=== PATIENT | female | born 1965 | race Caucasian/White ===

== ENCOUNTER → 2020-06-10 18:33 | Outpatient (ROUT) | payer BC, SELFPAY ==
[2020-06-10 19:00] LABS: Add Manual Diff / Slide Review NO; Basophils Absolute Auto 100 /uL (0-100); Basophils Percent Auto 0.7 % (0-2); Eosinophils Absolute Auto 300 /uL (0-450); Eosinophils Percent Auto 3.6 % (2-4); Hemoglobin 12.7 g/dL (12.0-16.0); Lymphocytes Absolute Auto 1500 /uL (1100-4500); Lymphocytes Percent Auto 18.1 % (25-40); Mean Corpuscular HGB Conc 33.4 % (30-36); Mean Corpuscular Hemoglobin 29.9 PG (26-34); Mean Corpuscular Volume 89.4 fL (80-100); Monocytes Absolute Auto 700 /uL (0-900); Monocytes Percent Auto 8.5 % (3-14); Neutrophils Absolute Auto 5600 /uL (1500-7000); Neutrophils Percent Auto 69.1 % (50-75); Platelet Count 207 X10^3/uL (150-400); Red Blood Cell Count 4.25 X10^6/uL (4.0-5.2); Red Cell Distribution Width 13.4 % (11.6-14.8); White Blood Cell Count 8.1 X10^3/uL (4.5-11.0)
[2020-06-10 19:36] LABS: Alanine Aminotransferase 81 IU/L (<35); Albumin 4.1 g/dL (3.5-5.0); Albumin Globulin Ratio 1.7 (1.0-2.8); Alkaline Phosphatase 126 U/L (38-126); Aspartate Aminotransferase 61 IU/L (14-36); BUN Creatinine Ratio 25.6 (6-22); Bilirubin Total 0.4 mg/dL (0.2-1.3); Blood Urea Nitrogen 20 mg/dL (7-17); Calcium 9.6 mg/dL (8.4-10.2); Carbon Dioxide 26 mmol/L (22-32); Chloride 104 mmol/L (98-107); Estimated Glomerular Filt Rate > 60.0 mL/min (>60); Globulin 2.4 g/dL (1.7-4.1); Glucose 81 mg/dL (70-100); HEMOLYSIS < 15 (0-50); Sodium 136 mmol/L (137-145); Total Protein 6.5 g/dL (6.3-8.2)
[2020-06-10 19:57] LABS: Thyroid Stimulating Hormone 1.13 uIU/mL (0.47-4.68)
== END ==
PROVIDERS: Visit Provider Internal Medicine
DX: F32.9 Major depressive disorder, single episode, unspecified (principal); R94.5 Abnormal results of liver function studies
CPT/HCPCS: 80053; 84443; 85025

== ENCOUNTER → 2020-07-21 07:00 | Outpatient (CLI) | payer BC, SELFPAY ==
[2020-07-21 08:46] LABS: HEMOLYSIS < 15 (0-50); Iron 60 ug/dL (37-170)
[2020-07-21 08:51] LABS: Alanine Aminotransferase 64 IU/L (<35); Albumin 4.2 g/dL (3.5-5.0); Albumin Globulin Ratio 1.6 (1.0-2.8); Alkaline Phosphatase 113 U/L (38-126); Aspartate Aminotransferase 46 IU/L (14-36); BUN Creatinine Ratio 24.7 (6-22); Bilirubin Total 0.3 mg/dL (0.2-1.3); Blood Urea Nitrogen 19 mg/dL (7-17); Calcium 9.6 mg/dL (8.4-10.2); Carbon Dioxide 29 mmol/L (22-32); Chloride 101 mmol/L (98-107); Cholesterol 207 mg/dL (140-199); Estimated Glomerular Filt Rate > 60.0 mL/min (>60); Gamma Glutamyl Transpeptidase 23 U/L (12-43); Globulin 2.7 g/dL (1.7-4.1); Glucose 95 mg/dL (70-100); HEMOLYSIS < 15 (0-50); Potassium 4.9 mmol/L (3.4-5.1); Sodium 137 mmol/L (137-145); Total Protein 6.9 g/dL (6.3-8.2); Triglycerides 38 mg/dL (35-150)
[2020-07-21 08:57] LABS: Percent Iron Saturation 18 % (15-50); Total Iron Binding Capacity 335 ug/dL (265-497); Transferrin 287 mg/dL (206-381)
[2020-07-21 09:10] LABS: HDL Cholesterol 138 mg/dL (40-60); LDL Cholesterol Calculated 61 mg/dL (<100)
[2020-07-21 09:21] LABS: Ferritin 27 ng/mL (11-264)
[2020-07-21 16:51] LABS: Hep C Virus Ab w/Reflex Quant NEGATIVE s/c (NEGATIVE); Hepatitis B Surface Antigen NEGATIVE s/c (NEGATIVE)
[2020-07-22 07:35] LABS: Hepatitis B Surf Ab Qualitativ Non Reactive (.)
[2020-07-22 16:31] LABS: SS A Ro Sjogrens Antibody < 0.2 AI (0.0-0.9); SS B La Sjogrens Antibody < 0.2 AI (0.0-0.9)
[2020-07-23 14:12] LABS: ANA Screen, IFA Negative (.)
== END ==
PROVIDERS: PCP Internal Medicine; Referring Provider Internal Medicine; Visit Provider Internal Medicine
DX: E78.5 Hyperlipidemia, unspecified (principal); R74.0 Nonspecific elevation of levels of transaminase and lactic acid dehydrogenase [LDH]; R21 Rash and other nonspecific skin eruption
CPT/HCPCS: 36415; 80053; 80061; 82728; 82977; 83540; 83550; 86038; 86235; 86706; 86803; 87340

== ENCOUNTER → 2020-07-24 08:41 | Outpatient (CLI) | payer BC, SELFPAY | PROVIDERS: Referring Provider Internal Medicine; Visit Provider Internal Medicine | DX: R20.2 Paresthesia of skin (principal) | CPT/HCPCS: 95886; 95911 ==

== ENCOUNTER → 2020-09-10 11:20 | Outpatient (CLI) | payer BC, SELFPAY ==
--- NOTE | 2020-09-10 | DI.MG.S_ITS ---
BILATERAL DIGITAL SCREENING MAMMOGRAM 3D/2D WITH CAD: 09/10/2020 CLINICAL: Routine screening. Comparison is made to exams dated: 06/19/2019 mammogram, 06/30/2018 mammogram, and 05/07/2016 mammogram - outside location. The tissue of both breasts is heterogeneously dense. This may lower the sensitivity of mammography. Current study was also evaluated with a Computer Aided Detection (CAD) system. No significant masses, calcifications, or other findings are seen in either breast. There has been no significant interval change. IMPRESSION: NEGATIVE There is no mammographic evidence of malignancy. A 1 year screening mammogram is recommended. This exam was interpreted at Station ID: [id number]. NOTE: For mammograms, a report in lay terms will be sent to the patient. Approximately 15% of breast malignancies will not be visualized mammographically. In the management of a palpable breast mass, a negative mammogram must not discourage biopsy of a clinically suspicious lesion. Electronically Signed By: Karen mosley/eugenio:09/10/2020 12:12:46 letter sent: Normal Exam ACR BI-RADS Category 1: Negative 3341F
== END ==
PROVIDERS: PCP Internal Medicine; Referring Provider Internal Medicine; Visit Provider Internal Medicine
DX: Z12.31 Encounter for screening mammogram for malignant neoplasm of breast (principal)
CPT/HCPCS: 77063; 77067

== ENCOUNTER → 2020-10-06 07:03 | Outpatient (CLI) | payer BC, SELFPAY ==
[2020-10-06 09:05] LABS: Alanine Aminotransferase 78 IU/L (<35); Aspartate Aminotransferase 63 IU/L (14-36); BUN Creatinine Ratio 33.3 (6-22); Blood Urea Nitrogen 25 mg/dL (7-17); Calcium 9.2 mg/dL (8.4-10.2); Carbon Dioxide 28 mmol/L (22-32); Chloride 102 mmol/L (98-107); Creatine Kinase 39 U/L (30-135); Estimated Glomerular Filt Rate > 60.0 mL/min (>60); Gamma Glutamyl Transpeptidase 23 U/L (12-43); Glucose 101 mg/dL (70-100); HEMOLYSIS < 15 (0-50); Potassium 4.6 mmol/L (3.4-5.1); Sodium 134 mmol/L (137-145)
[2020-10-08 18:41] LABS: Aldolase 5.4 U/L (3.3-10.3)
== END ==
PROVIDERS: PCP Internal Medicine; Referring Provider Internal Medicine; Visit Provider Internal Medicine
DX: R74.01 Elevation of levels of liver transaminase levels (principal)
CPT/HCPCS: 36415; 80048; 82085; 82550; 82977; 84450; 84460

== ENCOUNTER → 2021-01-08 09:49 | Outpatient (CLI) | payer BC, SELFPAY ==
--- NOTE | 2021-01-08 09:52 | DI.RAD.S_ITS ---
PROCEDURE: XR CHEST 2V INDICATIONS: COUGH TECHNIQUE: 2 views of the chest were acquired. COMPARISON: None. FINDINGS: Surgical changes and devices: None. Lungs and pleura: Lungs are clear. No pleural effusions or pneumothorax. Mediastinum: Mediastinal contours are normal. Heart size is normal. Bones and chest wall: No suspicious bony abnormalities. Soft tissues appear unremarkable. IMPRESSION: No acute cardiopulmonary abnormalities or focal airspace disease. Dictated by: Yovany Cohen M.D. on 01/08/2021 at 12:20 Approved by: Yovany Cohen M.D. on 01/08/2021 at 12:20
== END ==
PROVIDERS: PCP Internal Medicine; Referring Provider Internal Medicine; Visit Provider Internal Medicine
DX: R05 Cough (principal)
CPT/HCPCS: 71046

== ENCOUNTER → 2021-02-16 09:18 | Outpatient (CLI) | payer BC, SELFPAY ==
[2021-02-16 12:20] LABS: COVID19 -Nasal RAPID Negative (Negative)
== END ==
PROVIDERS: PCP Internal Medicine; Visit Provider Student in an Organized Health Care Education/Training Program
DX: Z20.822 Contact with and (suspected) exposure to COVID-19 (principal)
CPT/HCPCS: 87635

== ENCOUNTER 2021-02-18 08:19 | Day surgery (SDC) | payer BC, SELFPAY ==
[2021-02-18] VITALS (7 sets, daily range): BP systolic 103–136; BP diastolic 68–78; PULSE 62–76; RESP 12–17; TEMP 36.1–36.8; O2SAT 97–100; BMI 26.0
--- NOTE | 2021-02-18 | PATH_ITS ---
[facility] Accession Number: [id number] . 01 Material submitted: . colon - ASCENDING COLON POLYP . 02 Diagnosis: Ascending Colon, Polyp, Biopsy: Sessile serrated adenoma. MRV 02/24/2021 1149 Local . 02 Electronically signed: . Padmini Jacobs MD, Pathologist NPI- [id number] . 01 Gross description: . ASCENDING COLON POLYP: Received in formalin is 1 fragment(s) of slater, soft tissue measuring 0.8 x 0.3 x 0.3 cm submitted entirely in 1 cassette(s) /BRUCE 02/19/2021 1846 Local . 02 Pathologist provided ICD-10: D12.2 . 02 CPT . 732684 Performed at: [address] [facility] [address] [id number] MD Jesse De León MD Phone: [phone] Performed at: 02 [facility] [address] [place], [place] [id number] MD Padmini Jacobs MD Phone: [phone]
--- NOTE | 2021-02-18 08:06 | PM.HP.1 ---
History of Present Illness History of Present Illness Date Patient Seen: 02/18/21 Chief complaint: SDC Narrative: 56-year-old female with a history very of colon polyps and family history of colon cancer here for surveillance Patient History Family & Social History Tobacco & Substance use: Smoking Status Never smoker Meds Home Medications and Allergies Home Medications Medication Instructions Recorded Confirmed Type DHEA 5 mg PO DAILY 09/10/20 01/22/21 History biotin 10,000 mcg disintegrating 10,000 mcg PO DAILY 09/10/20 02/18/21 History tablet duloxetine 60 mg capsule,delayed 120 mg PO DAILY #180 cap 09/10/20 02/18/21 Rx release estradiol 1 mg-progesterone 100 mg 1 cap PO QPM 09/10/20 02/18/21 History capsule fluoxetine 40 mg capsule 160 mg PO DAILY #360 cap 09/10/20 02/18/21 Rx magnesium citrate 100 mg tablet 200 mg PO DAILY 09/10/20 02/18/21 History modafinil 200 mg tablet 400 mg PO DAILY #180 tab 09/10/20 02/18/21 Rx omega-3 fatty acids 1,000 mg 1,000 mg PO DAILY 09/10/20 02/18/21 History capsule pregnenolone [employer]ER 30mg PO DAILY 09/10/20 01/22/21 History rosuvastatin 10 mg tablet 10 mg PO DAILY 09/10/20 02/18/21 History spironolactone 25 mg tablet 50 mg PO DAILY tab 09/10/20 02/18/21 History bupropion HCl 75 mg tablet See Rx Instructions .ROUTE 01/22/21 02/18/21 Rx .COMPLEX #360 tab Allergies Allergy/AdvReac Type Severity Reaction Status Date / Time No Known Drug Allergies Allergy Verified 01/22/21 08:59 Exam Narrative Exam Narrative: General: Patient is well developed, not in apparent distress Cardiovascular: Regular rate and rhythm, no murmurs, rubs, or gallops; no evidence of edema; no palpable abdominal aortic aneurysm Gastrointestinal: Normoactive bowel sounds, soft, nontender, nondistended, no rebound tenderness, no hepatosplenomegaly, no evidence of hernia Assessment & Plan Assessment & Plan narrative: 56-year-old female with a history of colon polyps and family history of colon cancer here for surveillance Regarding the procedure(s), the risks and potential complications, benefits, and alternatives (including not doing the procedure) were discussed with the patient. The risks include but are not limited to bleeding, splenic injury, infection, perforation which may require surgical intervention, missed lesions, and adverse reactions to sedative medicines. After a question and answer period, the patient agreed to proceed with the procedure(s) and gives informed consent.
[2021-02-18] MEDS: SODIUM CHLORIDE 0.9% 1,000 ML 70 ML IV (08:47)
[2021-02-18] MEDS: fentaNYL 250 MCG/5 ML INJ IV (09:23)
--- NOTE | 2021-02-18 09:23 | P.OP.ENDO_ITS ---
Operative Date/Time/Diagnoses Date of procedure: 02/18/21 Procedure Notes Procedure in detail: Surgeon: Adán Noel MD Procedure: Colonoscopy with polypectomy Preoperative diagnosis: Colon polyp surveillance Postoperative diagnosis: Ascending colon polyp status post polypectomy, h ypertrophied anal papula Medications: Conscious sedation using 5 mg IV of Midazolam and 100 mcg IV of Fentanyl Preanesthesia Assessment An H and P was performed/updated and the Px?s ASA class is 2. The procedure was discussed in detail with the patient. The potential risks and complications including infection, bleeding, missed lesions, perforation, need for surgery in case of perforation, prolonged hospital stay, and were explained. A brief question and answer period was allotted and once all questions were answered, informed consent was obtained. The patient was brought back to the procedure room and placed on standard monitoring. The patient?s vital signs were monitored continuously throughout the entire procedure. Prior to starting, a timeout was performed to confirm the patient?s identity, allergies, medications, and procedure. Procedure in detail The patient was placed in left lateral decubitus position and once adequate sedation was obtained a PREET was performed. The digital rectal examination did not reveal any palpable lesions. The tip of the colonoscope was placed in the anal canal and advanced without difficulty all the way to the cecum which was identified by the appendiceal orifice and the ileocecal valve. Careful examination of all peralta of the colon was performed with irrigation of any residual stool. In the ascending colon, a 4 mm sessile polyp was removed by means of cold snare. Resection retrieval was complete The remainder of the colon showed no abnormalities Retroflexion was performed in the rectum which revealed hypertrophied anal pa pillae The patient tolerated the procedure well and will be brought back to the recovery area to be discharged once criteria are met. The prep was judged to be good and adequate to identify polyps less than 5 mm. The withdrawal time was 11 minutes. The total physician intraservice time was 20 minutes. Complications There were no complications and estimated blood loss was minimal. Recommendations: Resume previous diet Continue outPx medications Follow up pathology results Repeat colonoscopy in 5 or 7 or 10 years depending on pathology results An emergency contact number was given to the patient for any complications related to the procedure
[2021-02-18] MEDS: MIDAZOLAM 5 MG/5 ML VIAL IV (09:24)
--- NOTE | 2021-02-18 11:04 | SUR.PHASEII ---
1025-Pt up and ambulating gait steady, drinking po fluids without problems, denies pain or nausea. Pt getting dressed now without difficulty and at curbside. All dc instructions given and pt verbalizes understanding. iv dcd earlier and site clear.
== END 2021-02-18 10:30 | disposition home or self-care (01) ==
PROVIDERS: PCP Internal Medicine; Referring Provider Internal Medicine Gastroenterology; Visit Provider Internal Medicine Gastroenterology
PROC: 0DJD8ZZ Inspection of Lower Intestinal Tract, Via Natural or Artificial Opening Endoscopic (ICD-10-PCS; CPT 45378; 2021-02-18 09:30)
DX: Z12.11 Encounter for screening for malignant neoplasm of colon (principal); Z80.0 Family history of malignant neoplasm of digestive organs; Z86.010 Personal history of colon polyps; K64.4 Residual hemorrhoidal skin tags; D12.2 Benign neoplasm of ascending colon
CPT/HCPCS: 45385; J2250; J3010

== ENCOUNTER 2021-04-14 07:44 | Emergency (ER) | payer BC, SELFPAY ==
[2021-04-14] VITALS (7 sets, daily range): BP systolic 136–154; BP diastolic 72–87; PULSE 73–85; RESP 16–25; TEMP 36.8; O2SAT 97–100; BMI 25.2
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
[2021-04-14] MEDS: SODIUM CHLORIDE 0.9% 1,000 ML 1000 ML IV (08:02)
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
[2021-04-14 08:11] LABS: Add Manual Diff / Slide Review NO; Basophils Absolute Auto 100 /uL (0-100); Basophils Percent Auto 0.7 % (0-2); Eosinophils Absolute Auto 600 /uL (0-450); Hematocrit 39.2 % (36-46); Hemoglobin 12.6 g/dL (12.0-16.0); Lymphocytes Absolute Auto 2200 /uL (1100-4500); Lymphocytes Percent Auto 21.2 % (25-40); Mean Corpuscular HGB Conc 32.1 % (30-36); Mean Corpuscular Hemoglobin 29.4 PG (26-34); Mean Corpuscular Volume 91.5 fL (80-100); Monocytes Absolute Auto 1100 /uL (0-900); Monocytes Percent Auto 11.1 % (3-14); Neutrophils Absolute Auto 6200 /uL (1500-7000); Platelet Count 263 X10^3/uL (150-400); Red Blood Cell Count 4.28 X10^6/uL (4.0-5.2); Red Cell Distribution Width 13.8 % (11.6-14.8); White Blood Cell Count 10.2 X10^3/uL (4.5-11.0)
[2021-04-14 08:14] LABS: D Dimer < 200 ng/mL (<230)
[2021-04-14 08:15] LABS: Alanine Aminotransferase 121 IU/L (<35); Albumin 4.2 g/dL (3.5-5.0); Albumin Globulin Ratio 1.5 (1.0-2.8); Alkaline Phosphatase 102 U/L (38-126); Aspartate Aminotransferase 96 IU/L (14-36); BUN Creatinine Ratio 20.8 (6-22); Bilirubin Total 0.4 mg/dL (0.2-1.3); Blood Urea Nitrogen 16 mg/dL (7-17); Calcium 9.6 mg/dL (8.4-10.2); Carbon Dioxide 22 mmol/L (22-32); Chloride 103 mmol/L (98-107); Creatine Kinase 74 U/L (30-135); Estimated Glomerular Filt Rate > 60.0 mL/min (>60); Ethanol (ETOH) < 10 mg/dL; Globulin 2.8 g/dL (1.7-4.1); Glucose 110 mg/dL (70-100); HEMOLYSIS 26 (0-50); Potassium 4.3 mmol/L (3.4-5.1); Sodium 136 mmol/L (137-145)
[2021-04-14 08:26] LABS: Troponin I < 0.012 ng/mL (0.01-0.034)
[2021-04-14 08:31] LABS: Prolactin 70.9 ng/mL (3.0-18.6)
[2021-04-14 09:53] LABS: UR Morphine/Opiate cutoff 300 Negative (Negative); Ur Creatinine Normal (Normal); Ur Specific Gravity Normal (Normal); Urine Amphetamines Negative (Negative); Urine Cocaine Negative (Negative); Urine MDMA Negative (Negative); Urine Methamphetamines Negative (Negative); Urine Phencyclidine Negative (Negative); Urine Tetrahydrocannabinol Negative (Negative); Urine pH Normal (Normal)
[2021-04-14 09:54] LABS: Urine Barbiturates Negative (Negative); Urine Benzodiazepines Negative (Negative); Urine Methadone Negative (Negative); Urine Oxycodone Negative (Negative); Urine Tricyclic Antidepressant Negative (Negative)
== END 2021-04-14 10:34 | disposition home or self-care (01) ==
PROVIDERS: Emergency Provider Emergency Medicine; PCP Internal Medicine
DX: R56.9 Unspecified convulsions (principal)
CPT/HCPCS: 70450; 71045; 80053; 80305; 80320; 81003; 82550; 82962; 83735; 84146; 84484; 85025; 85379; 93005; 93010; 96360; 96361; 99285

== ENCOUNTER → 2021-10-06 09:58 | Outpatient (CLI) | payer BC, SELFPAY ==
--- NOTE | 2021-10-06 | DI.MG.S_ITS ---
BILATERAL DIGITAL SCREENING MAMMOGRAM 3D/2D WITH CAD: 10/06/2021 CLINICAL: Routine screening. Comparison is made to exams dated: 09/10/2020 mammogram - [facility], 06/19/2019 mammogram, and 06/30/2018 mammogram - outside location. The tissue of both breasts is heterogeneously dense. This may lower the sensitivity of mammography. Current study was also evaluated with a Computer Aided Detection (CAD) system. No significant masses, calcifications, or other findings are seen in either breast. There has been no significant interval change. IMPRESSION: NEGATIVE There is no mammographic evidence of malignancy. A 1 year screening mammogram is recommended. This exam was interpreted at Station ID: [id number]. NOTE: For mammograms, a report in lay terms will be sent to the patient. Approximately 15% of breast malignancies will not be visualized mammographically. In the management of a palpable breast mass, a negative mammogram must not discourage biopsy of a clinically suspicious lesion. Electronically Signed By: Yovany roach/eugenio:10/06/2021 13:04:36 letter sent: Normal Exam ACR BI-RADS Category 1: Negative [id number]
== END ==
PROVIDERS: PCP Internal Medicine; Referring Provider Internal Medicine; Visit Provider Internal Medicine
DX: Z12.31 Encounter for screening mammogram for malignant neoplasm of breast (principal)
CPT/HCPCS: 77063; 77067

== ENCOUNTER → 2021-11-24 10:56 | Outpatient (CLI) | payer BC, SELFPAY ==
[2021-11-24 12:58] LABS: Progesterone, Total 1.99 ng/mL
[2021-11-24 13:01] LABS: Testosterone 34.6 ng/dL (5.71-77.0)
[2021-11-27 21:22] LABS: Estrogen 274 pg/mL (.)
== END ==
PROVIDERS: PCP Internal Medicine; Referring Provider Obstetrics & Gynecology; Visit Provider Obstetrics & Gynecology
DX: N95.1 Menopausal and female climacteric states (principal)
CPT/HCPCS: 36415; 82672; 84144; 84403

== ENCOUNTER → 2022-01-01 09:43 | Outpatient (CLI) | payer BC, SELFPAY ==
--- NOTE | 2022-01-01 | DI.RAD.S_ITS ---
PROCEDURE: XR TOE RT MIN 2V INDICATIONS: Pain in right toe(s) TECHNIQUE: 2 views of the great toe(s) acquired. COMPARISON: None. FINDINGS: Bones: No fractures or dislocations. Osteoarthritic changes are seen in 1st MTP joint and 1st interphalangeal joint. No suspicious bony lesions. Soft tissues: No suspicious soft tissue densities. IMPRESSION: Mild right great toe osteoarthritis. No acute fracture or dislocation. No gross soft tissue abnormality. Dictated by: Sridhar Webster M.D. on 01/01/2022 at 11:43 Approved by: Sridhar Webster M.D. on 01/01/2022 at 11:43
== END ==
PROVIDERS: PCP Internal Medicine; Referring Provider Internal Medicine; Visit Provider Internal Medicine
DX: M19.071 Primary osteoarthritis, right ankle and foot (principal); M79.674 Pain in right toe(s)
CPT/HCPCS: 73660

== ENCOUNTER → 2022-01-18 14:20 | Outpatient (CLI) | payer BC, SELFPAY ==
--- NOTE | 2022-01-18 14:21 | DI.RAD.S_ITS ---
PROCEDURE: XR LUMBAR SPINE MIN 4V INDICATIONS: BACK PAIN TECHNIQUE: 5 views of the lumbar spine were acquired, including bilateral oblique views. COMPARISON: None. FINDINGS: Bones: 5 nonrib-bearing vertebrae are present. There is mild levo curvature centered at L2. There is mild degenerative anterolisthesis of L4 on L5. Multilevel degenerative disc space loss. Lower lumbar facet arthropathy. Suspect canal stenosis. No vertebral body compression fractures. No suspicious bony lesions. Soft tissues: Overlying bowel gas pattern is normal. No suspicious soft tissue calcifications. Oblique images: No pars defects. IMPRESSION: Degenerative change. Suspect canal stenosis. Comment: Lumbar spine MRI may potentially be helpful. Dictated by: Sonny Mathews M.D. on 01/18/2022 at 16:39 Approved by: Sonny Mathews M.D. on 01/18/2022 at 16:45
== END ==
PROVIDERS: PCP Internal Medicine; Referring Provider Physical Medicine & Rehabilitation; Visit Provider Physical Medicine & Rehabilitation
DX: M54.9 Dorsalgia, unspecified (principal); M47.816 Spondylosis without myelopathy or radiculopathy, lumbar region
CPT/HCPCS: 72110

== ENCOUNTER → 2022-01-26 13:42 | Outpatient (CLI) | payer BC, SELFPAY ==
--- NOTE | 2022-01-26 13:45 | DI.MRI.S_ITS ---
PROCEDURE: MR LUMBAR SPINE WO CON INDICATIONS: Right L4-5 radiculopathy TECHNIQUE: Noncontrast sagittal T1 spin echo and T2 fast echo, sagittal STIR, and T2 fast spin echo through the lumbar spine. In cases with scoliosis, additional coronal T2 fast spin echo may be performed. COMPARISON: [facility], CR, XR LUMBAR SPINE MIN 4V, 01/18/2022, 14:13. FINDINGS: Image quality: Excellent. Alignment and Curvature: Mild diffuse leftward curvature of the lumbar spine. 5 lumbar type vertebral bodies are present by plain film. There is mild, grade 1 anterolisthesis of L3 on L4, L4 on L5, and L5 on S1. Bone Marrow: Marrow is of normal overall signal. No acute vertebral body compression fractures. Mild reactive signal throughout the endplates of the lumbar and lower thoracic spine. Spinal Cord: Conus medullaris terminates at the lower L1 level. Visualized cord demonstrates normal signal and size. Paraspinous Soft Tissues: No paravertebral masses. T12-L1: Mild disc height loss and desiccation. No significant canal, or foraminal stenosis. L1-L2: Severe disc height loss and desiccation. Mild diffuse disc bulge. Mild canal stenosis. Mild bilateral foraminal stenosis. L2-L3: Moderate disc height loss and desiccation. Mild diffuse disc bulge. Mild facet and ligamentum flavum hypertrophy. Mild canal stenosis. Mild to moderate bilateral foraminal stenosis. L3-L4: Mild disc height loss and desiccation. Mild diffuse disc bulge. Mild facet and ligamentum flavum hypertrophy. Mild canal stenosis. Moderate bilateral foraminal stenosis. L4-L5: Moderate disc height loss and desiccation. Mild diffuse disc bulge. Moderate facet and ligamentum flavum hypertrophy. Mild epidural lipomatosis. Severe canal stenosis. Moderate bilateral foraminal stenosis. L5-S1: Mild disc height loss. Moderate disc desiccation. Mild diffuse disc bulge. Mild facet and ligamentum flavum hypertrophy. Mild canal stenosis. Moderate to severe bilateral foraminal stenosis. Bilateral L5 nerve root compression. IMPRESSION: 1. Multilevel degenerative disc and facet disease, as well as ligamentum flavum hypertrophy and epidural lipomatosis. 2. Multilevel canal stenoses, worst at L4-L5 where there is severe canal stenosis. 3. Multilevel foraminal stenoses, worst at L5-S1 where there is associated intraforaminal nerve root compression. Recommend correlation with clinical symptoms to ascertain relevance of this finding. Dictated by: Ashtyn Noble M.D. on 01/26/2022 at 14:22 Approved by: Ashtyn Noble M.D. on 01/26/2022 at 14:25
== END ==
PROVIDERS: PCP Internal Medicine; Referring Provider Physical Medicine & Rehabilitation; Visit Provider Physical Medicine & Rehabilitation
DX: M51.16 Intervertebral disc disorders with radiculopathy, lumbar region (principal); M48.061 Spinal stenosis, lumbar region without neurogenic claudication; M51.17 Intervertebral disc disorders with radiculopathy, lumbosacral region; M48.07 Spinal stenosis, lumbosacral region; R29.2 Abnormal reflex
CPT/HCPCS: 72148

== ENCOUNTER → 2022-02-02 11:57 | Outpatient (CLI) | payer BC, SELFPAY ==
--- NOTE | 2022-02-02 | DI.US.S_ITS ---
PROCEDURE: US ABDOMEN LIMITED INDICATIONS: ABNORMAL LFTs TECHNIQUE: Real-time focused scanning was performed of the abdomen, with image documentation. COMPARISON: None. FINDINGS: Normal appendix parenchymal echogenicity and echotexture. No hepatic mass. No intrahepatic or extrahepatic biliary ductal dilatation. Visualized portions of the pancreas are normal. Gallbladder unremarkable. IMPRESSION: Normal right upper quadrant abdominal ultrasound Dictated by: Umer Olvera M.D. on 02/02/2022 at 17:42 Approved by: Umer Olvera M.D. on 02/02/2022 at 17:43
== END ==
PROVIDERS: PCP Internal Medicine; Referring Provider Internal Medicine; Visit Provider Internal Medicine
DX: R79.89 Other specified abnormal findings of blood chemistry (principal); R74.8 Abnormal levels of other serum enzymes
CPT/HCPCS: 76705

== ENCOUNTER 2022-02-08 10:18 | Emergency (ER) | payer BC, SELFPAY ==
[2022-02-08 10:45] VITALS: BP 128/72; PULSE 76; RESP 18; TEMP 36.3; O2SAT 99; BMI 26.6
--- NOTE | 2022-02-08 10:49 | DI.RAD.S_ITS ---
PROCEDURE: XR FOOT LT MIN 3V INDICATIONS: fall down 2 stairs, pain left foot, able to bear weight TECHNIQUE: 3 views of the foot were acquired. COMPARISON: None. FINDINGS: Bones: No fractures or dislocations. No suspicious bony lesions. Bipartite tibial sesamoid bone. Soft tissues: No tibiotalar joint effusion. Achilles tendon appears normal. IMPRESSION: No acute osseous abnormality identified. Consider follow-up radiographs in 10-14 days. Cross-sectional imaging CT or MRI could also be considered if concern for occult fracture. Dictated by: Eliel Johnson M.D. on 02/08/2022 at 11:45 Approved by: Eliel Johnson M.D. on 02/08/2022 at 11:46
--- NOTE | 2022-02-08 12:23 | ED_ITS ---
HPI - Extremity Injury (Lower) <Papa Romero PA-C - Last Filed: 02/08/22 19:37> General Chief Complaint: Extremity Injury, Lower Stated Complaint: Fell on stairs, twisted left foot, pain Time Seen by Provider: 02/08/22 10:37 Mode of arrival: Ambulatory History of Present Illness HPI Narrative: Patient is a 56-year-old female presenting to the emergency department today for evaluation of left foot pain. Patient states that earlier this morning she rolled her left ankle and tripped down 2 stairs. She states she has been experiencing foot and ankle pain since that time. Of note, patient denies pain or injury elsewhere and states that she did not hit her head or lose consciousness as a result of the fall. No fever, chills, chest pain, cough, shortness of breath, nausea, vomiting, diarrhea, abdominal pain, constipation, dysuria, hematuria, numbness and tingling in the lower extremities, or any other concerning symptoms reported. Patient states that she has been able to bear weight on the left lower extremity with increased pain. No further concerns were voiced at this time. Related Data Home Medications Medication Instructions Recorded Confirmed DHEA 5 mg PO DAILY 09/10/20 01/18/22 estradiol 1 mg-progesterone 100 mg 1 cap PO QPM 09/10/20 01/18/22 capsule (Bijuva) omega-3 fatty acids 1,000 mg 1,000 mg PO DAILY 09/10/20 01/18/22 capsule pregnenolone ADMINISTRATION DEAN 30mg PO DAILY 09/10/20 01/18/22 rosuvastatin 10 mg tablet 10 mg PO DAILY 09/10/20 01/18/22 spironolactone 25 mg tablet 50 mg PO DAILY tab 09/10/20 01/18/22 lamotrigine 100 mg tablet 100 mg PO BID 08/24/21 01/18/22 mv,iron,qzj-MB-ukrgkic supplement tab PO 10/15/21 01/18/22 comb. no.24 400 mcg tablet cholecalciferol (vitamin D3) 50 50 mcg PO DAILY 11/24/21 01/18/22 mcg (2,000 unit) capsule (Vitamin D3) telmisartan 40 mg tablet 40 mg PO DAILY 11/24/21 01/18/22 Previous Rx's Medication Instructions Recorded aripiprazole 2 mg tablet 2 mg PO DAILY #90 tab 06/15/21 fluoxetine 40 mg capsule 160 mg PO DAILY #360 cap 06/16/21 duloxetine 60 mg capsule,delayed 120 mg PO DAILY #180 cap 10/15/21 release methylprednisolone 4 mg tablets in See Rx Instructions PO PER PKG DIR 01/18/22 a dose pack (Medrol (Darren)) #21 ea modafinil 200 mg tablet 400 mg PO DAILY #180 tab 02/08/22 Allergies Allergy/AdvReac Type Severity Reaction Status Date / Time No Known Drug Allergies Allergy Verified 02/08/22 10:48 Review of Systems <Papa Romero PA-C - Last Filed: 02/08/22 19:37> Constitutional Constitutional: Denies chills, Denies fatigue, Denies fever(s), Denies frequent falls, Denies lethargy and Denies weakness Eyes Eyes: Denies loss of vision ENT Ears, Nose, Mouth, and Throat: Denies dizziness and Denies neck pain Cardiovascular Cardiovascular: Denies chest pain, Denies irregular heart rhythm, Denies lightheadedness, Denies palpitations, Denies dyspnea, Denies dyspnea on exertion and Denies orthopnea Respiratory Respiratory: Denies cough, Denies dyspnea, Denies dyspnea on exertion and Denies wheezing Gastrointestinal Gastrointestinal: Denies abdominal pain, Denies change in bowel habits, Denies diarrhea, Denies nausea and Denies vomiting Genitourinary Genitourinary: Denies hematuria, Denies flank pain, Denies urinary incontinence and Denies urinary urgency Musculoskeletal Musculoskeletal: Denies back pain, Reports arthralgias (Left ankle/foot), Reports joint swelling (Left ankle/foot), Denies muscle weakness, Denies neck pain, Denies numbness and Denies tingling Integumentary/Breasts Skin/Breast: Denies pruritus, Denies erythema, Denies rash and Denies wounds Neurologic Neurologic: Denies behavioral changes, Denies confusion, Denies dizziness, Denies frequent falls, Denies loss of vision, Denies numbness, Denies tingling and Denies weakness Psychiatric Psychiatric: Denies behavioral changes and Denies confusion Endocrine Endocrine: Denies fatigue and Denies palpitations Allergic/Immunologic Allergic/Immunologic: Denies wheezing Patient History <Papa Romero PA-C - Last Filed: 02/08/22 19:37> Medical History Acne (~1979) Anxiety (~1985) Carpal tunnel syndrome (~1994) Chicken pox Depression (~1985) Eczema (~1975) Hyper reflexia Lumbar radiculopathy Ovarian cyst Restless leg syndrome (~2009) Vaginal delivery Surgical History Anesthesia History of carpal tunnel release (~09/2021) Family History Father History of heart disease Hypertension Hyperlipidemia Mother Mental health problem Brother Mental health problem Social History household members: spouse Smoking Status: Never smoker Smoking Status: Never smoker alcohol intake frequency: a few times a month Substance Use Type: does not use Exam <Papa Romero PA-C - Last Filed: 02/08/22 19:37> Narrative Exam Narrative: GENERAL: 56 year old patient appears stated age. Well-developed patient, in no acute distress. HEAD: Atraumatic. Normocephalic. EYES: Pupils equal round and reactive. Extraocular motions intact. No scleral icterus. No injection or drainage. ENT: Nose without bleeding, purulent drainage. Throat without erythema, to nsillar hypertrophy or exudate. Airway patent. NECK: Trachea midline. Non tender CARDIOVASCULAR: Regular rate and rhythm without murmurs, gallops, or rubs. RESPIRATORY: Clear to auscultation. Breath sounds equal bilaterally. No wheezes, rales, or rhonchi. GASTROINTESTINAL: Abdomen soft, non-tender, nondistended. EXTREMITIES: No edema. Mild tenderness to palpation appreciated over the lateral aspect of the left foot without significant deformity. Mild swelling and ecchymosis noted to the lateral aspect the foot. No appreciable tenderness to palpation over the proximal aspect of the left 5th metatarsal. DP pulse palpated on the right. Good sensation light touch appreciated throughout the bilateral lower extremities. Gross motor function intact throughout the bilateral lower extremities. Patient is able to move toes of the left foot without difficulty. BACK: Nontender without deformity or crepitance. No flank tenderness. NEURO: AOx3. SKIN: No rash or erythema of visible areas Initial Vital Signs Initial Vital Signs: Vital Signs Temperature 97.4 F L 02/08/22 10:45 Pulse Rate 76 02/08/22 10:45 Respiratory Rate 18 02/08/22 10:45 Blood Pressure 128/72 02/08/22 10:45 Pulse Oximetry 99 02/08/22 10:45 <Grady May DO - Last Filed: 02/09/22 08:09> Initial Vital Signs Initial Vital Signs: Vital Signs Temperature 97.4 F L 02/08/22 10:45 Pulse Rate 76 02/08/22 10:45 Respiratory Rate 18 02/08/22 10:45 Blood Pressure 128/72 02/08/22 10:45 Pulse Oximetry 99 02/08/22 10:45 Course <THOMAS Banegas Last Filed: 02/08/22 19:37> Course Course Narrative: X-ray of left foot obtained Orders Ordered: ED Orders 02/08/22 10:49 XR foot LT min 3V Stat Vital Signs Vital signs: Vital Signs - 8 hr 02/08/22 10:45 Temperature 97.4 F L Pulse Rate 76 Respiratory Rate 18 Blood Pressure 128/72 Pulse Oximetry 99 <DO Enrico Choi Last Filed: 02/09/22 08:09> Orders Ordered: ED Orders 02/08/22 10:49 XR foot LT min 3V Stat Vital Signs Vital signs: Vital Signs - 8 hr 02/08/22 10:45 Temperature 97.4 F L Pulse Rate 76 Respiratory Rate 18 Blood Pressure 128/72 Pulse Oximetry 99 MDM - Extremity Injury (Lower) <HTOMAS Banegas Last Filed: 02/08/22 19:37> Imaging Data Extremity x-ray #1: Radiologist's Impression: PROCEDURE:? XR FOOT LT MIN 3V ? INDICATIONS:? fall down 2 stairs, pain left foot, able to bear weight ? TECHNIQUE:? 3 views of the foot were acquired.? ? COMPARISON:? None. ? FINDINGS:? ? Bones:? No fractures or dislocations.? No suspicious bony lesions.? Bipartite tibial sesamoid bone.? ? Soft tissues:? No tibiotalar joint effusion.? Achilles tendon appears normal.? ? ? IMPRESSION:? No acute osseous abnormality identified. ? ? Consider follow-up radiographs in 10-14 days.? Cross-sectional imaging CT or MRI could also be considered if concern for occult fracture.? ? Dictated by: Eliel Johnson M.D. on 02/08/2022 at 11:45 ? ? Approved by: Eliel Johnson M.D. on 02/08/2022 at 11:46? MDM Narrative Medical decision making narrative: Differential diagnosis considered but not limited to fracture versus dislocation versus sprain versus strain. Discussed results of x-ray obtained in the emergency department today and inform the patient and no acute abnormality such as fracture or dislocation was identified. I urged the patient to proceed with RICE therapy, rest, ice, compression, and elevation. Patient expresses understanding and agrees to plan. She states that this time she is comfortable being discharged home and is stable for discharge. Strict return precautions were discussed with the patient prior to discharge. Discharge Plan Departure Patient Disposition: Home Clinical Impression: Acute left ankle pain, Left ankle sprain, Acute pain of left foot Instructions: DI for Ankle Sprain Activity Restrictions/Additional Instructions: *You have been diagnosed with left ankle pain, left ankle sprain, left foot pain *What to do: *Please continue to take your regular medications as directed. [ ] New medication prescriptions sent to your pharmacy: [ ] [ ] New medication written as a paper prescription [X] No new medications given You were evaluated in the emergency department today for left foot pain. X-ray imaging obtained in the emergency department today did not show signs of acute bony abnormality such as fracture or dislocation. I recommend RICE therapy: Rest, ice, compression, and elevation. Tylenol and ibuprofen can be used as needed for pain management. Please follow-up with the primary care provider within the next 2-3 days for further evaluation. Do not hesitate to return to the emergency department if you experience fever, worsening pain, numbness and tingling in the lower extremity, inability to bear weight on the left lower extremity, or any other concerning symptoms. *Please follow up with your primary care provider in 2-3 days, call for an appointment. Let them know you were seen in the Emergency Department and that we ask that you be seen in follow up. We will electronically transmit a record of today's note if your PCP is in our system *If you do not have a primary care provider please contact the [facility] Resource line at [phone]. They will ask some questions about your medical history and help get you set up with a doctor in the community. *Return to Emergency Department if you should have any new, worsening or concerning symptoms, such as fever greater than 101 F, shaking chills, worsening pain, persistent vomiting or other bothersome symptoms. Prescriptions: No Action lamotrigine 100 mg tablet 100 mg PO BID 0RF pregnenolone ADMINISTRATION DEAN 30mg PO DAILY 0RF DHEA 5 mg PO DAILY 0RF spironolactone 25 mg tablet 50 mg PO DAILY 0RF omega-3 fatty acids 1,000 mg capsule 1,000 mg PO DAILY 0RF Bijuva 1-100 mg capsule 1 cap PO QPM 0RF rosuvastatin 10 mg tablet 10 mg PO DAILY 0RF aripiprazole 2 mg tablet 2 mg PO DAILY Qty: 90 3RF mv,iron,lxu-YK-xhslmmp cmb.24 400 mcg tablet PO 0RF duloxetine 60 mg capsule,delayed release(DR/EC) 120 mg PO DAILY Qty: 180 3RF fluoxetine 40 mg capsule 160 mg PO DAILY Qty: 360 3RF modafinil 200 mg tablet 400 mg PO DAILY Qty: 180 0RF cholecalciferol (vitamin D3) [Vitamin D3] 50 mcg (2,000 unit) capsule 50 mcg PO DAILY 0RF telmisartan 40 mg tablet 40 mg PO DAILY 0RF methylprednisolone [Medrol (Darren)] 4 mg tablets,dose pack See Rx Instructions PO PER PKG DIR Qty: 21 0RF Rx Instructions: PO PER PKG DIR Referrals: Tomasz Malik MD [Primary Care Provider] - <Grady May DO - Last Filed: 02/09/22 08:09> [facility]: I was immediately available in the department for consultation. This documentation has been reviewed and I agree with assessment and plan. Supervised by Grady May DO
--- NOTE | 2022-02-08 12:54 | PC.NURSE ---
John wrap applied to left ankle with care instructions provided, assessment deferred to Heather ZHAO.
== END 2022-02-08 12:55 | disposition home or self-care (01) ==
PROVIDERS: Emergency Provider Physician Assistant; PCP Internal Medicine
DX: S93.402A Sprain of unspecified ligament of left ankle, initial encounter (principal); M79.672 Pain in left foot; W10.9XXA Fall (on) (from) unspecified stairs and steps, initial encounter
CPT/HCPCS: 73630; 99283

== ENCOUNTER → 2022-02-22 13:06 | Outpatient (CLI) | payer BC, SELFPAY ==
[2022-02-22 14:52] LABS: COVID19 -Nasal RAPID Negative (Negative)
== END ==
PROVIDERS: PCP Internal Medicine; Visit Provider Physical Medicine & Rehabilitation
DX: Z20.822 Contact with and (suspected) exposure to COVID-19 (principal)
CPT/HCPCS: 87635; C9803

== ENCOUNTER 2022-02-23 07:20 | Outpatient (CLI) | payer BC, SELFPAY ==
[2022-02-23] VITALS (7 sets, daily range): BP systolic 110–135; BP diastolic 55–63; PULSE 68–76; RESP 14–19; TEMP 36.8; O2SAT 98–100
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
[2022-02-23] MEDS: MIDAZOLAM 2 MG/2 ML VIAL IV (08:25)
[2022-02-23] MEDS: IOPAMIDOL 15 ML VIAL 3 ML INJ (08:30)
[2022-02-23] MEDS: BUPIVACAINE 0.25% (PF) VIAL 2 ML INJ (08:31)
[2022-02-23] MEDS: DEXAMETHASONE 10 MG/ML VIAL 20 MG INJ (08:31)
[2022-02-23] MEDS: BETAMETHASONE 30 MG/5 ML MDV 6 MG INJ (08:31)
--- NOTE | 2022-02-23 08:45 | P.PCN_ITS ---
Date/Time/Diagnoses Date of procedure: 02/23/22 Time of procedure: 08:45 Pre-procedure diagnosis: 1. FORAMINAL STENOSIS WITH LE SYMPTOMS Post-procedure diagnosis: same Procedure Notes Procedure: 1. FLUOROSCOPICALLY GUIDED CONTRAST CONTROLLED TRANSFORAMINAL EPIDURAL STEROID INJECTION - RIGHT L4/5 TFESI Indications: Alma is referred by Dr. Malik for treatment of Foraminal Stenosis with Right LE Symptoms Physician: Tomasz Magallon Total Fluoroscopy time (seconds): 12 Total sedation minutes: 15 Complications: none Procedure in detail & Post-procedure care: FINDINGS Foraminal Nerve Root Compression secondary to disc disease and facet hypertrophy DESCRIPTION OF PROCEDURE Following review of allergy and review of potential side effects and complications, including, but not necessarily limited to, infection, allergic reaction, local tissue breakdown, stroke, temporary or permanent nerve injury, paralysis, and possible , the patient indicated that the patient understood and agreed to proceed. An informed consent document was signed by the patient, witnessed by a nurse, and placed in the patient's chart. Additionally, other treatment options including medications, modalities, and physical therapy were reviewed with the patient. After review of previous anaesthesic history and IV conscious sedation the patient was deemed safe to proceed with today?s procedure with IV conscious sedation as ASA class II designation. Safety time-out was performed to confirm patient ID, procedure to be performed and site of procedure. IV sedation was accomplished with a combination of 2mg of Versed was administered by the RN after DO order, titrated to patient comfort during the course of the procedure while the patient remained responsive to all verbal commands In the prone position following sterile prep and drape of the lumbar region, the right L4/5 posterior neuroforamen was identified fluoroscopically. The skin was anesthetized via a 25-gauge 1.5-inch needle with 1% lidocaine solution. At this point, a 25-gauge 3.5-inch spinal needle was atraumatically introduced and advanced under fluoroscopic guidance through the posterior right L4/5 neuroforamen to approximately the anterior aspect of the canal. Depth was confirmed on lateral view. Following negative aspiration, injection of approximately 1.5cc of Isovue 200 under live fluoroscopy in the AP view confirmed excellent flow along the nerve root, into the epidural space without vascular or intrathecal uptake observed Radiological data, including multiple fluoroscopic views of the lumbosacral spine, reveal a spinal needle at the right L4/5 posterior neuroforamen. Subsequent views show flow of contrast material flowing superiorly and inferiorly along the nerve root confirming epidural flow. Subsequently, a test dose of 1.5 cc of 1% lidocaine solution was administered and patient was observed for two minutes for signs or symptoms of complications, including abdominal pain, shortness of breath, bilateral upper or lower extremity weakness, nausea and vomiting, prior to steroid injection. At this point, a total of 3cc or 20mg of dexamethasone and 6mg of betamethasone was injected without incident. The procedure tolerated the procedure well without signs or symptoms of complications prior to transfer to the recovery area continued monitoring without incident. The patient was then transferred to the recovery area where they were observed for an appropriate time after the injection. The patient reported a VAS score of 7 prior to the procedure and a post- procedure VAS of 0. POST OP INSTRUCTIONS The patient was provided a Pain Log to continue to record their response to the target-specific procedure prior to follow-up visit with their referring physician. Additionally, specific post-injection care instructions and a contact number to our office were provided if concerns arise regarding possible complications associated with the procedure are suspected.
== END 2022-02-23 07:54 | disposition home or self-care (01) ==
PROVIDERS: PCP Internal Medicine; Referring Provider Physical Medicine & Rehabilitation; Visit Provider Physical Medicine & Rehabilitation
DX: M48.061 Spinal stenosis, lumbar region without neurogenic claudication (principal); M51.16 Intervertebral disc disorders with radiculopathy, lumbar region
CPT/HCPCS: 64483; 99152; J0702; J1100; J2250

== ENCOUNTER → 2022-03-12 07:41 | Outpatient (CLI) | payer BC, SELFPAY ==
--- NOTE | 2022-03-12 07:41 | DI.MRI.S_ITS ---
PROCEDURE: MR CERVICAL SPINE WO CON INDICATIONS: HYPER REFLEXIA WITH HISTORY OF WHIPLASH TECHNIQUE: Noncontrast sagittal T1 spin echo and T2 fast spin echo, sagittal STIR, foraminal oblique sagittal T2 fast spin echo, and axial gradient echo or T2 fast spin echo through the cervical spine. COMPARISON: None. FINDINGS: Image quality: Excellent. Alignment and Curvature: There is loss of normal cervical lordosis. 3 mm of anterolisthesis of C3 on C4. 2 mm of retrolisthesis of C4 on C5, C5 on C6, and C6 on C7. 3 mm of anterolisthesis of C7 on T1. Bone Marrow: Marrow demonstrates normal overall signal. There is mild reactive signal throughout the endplates of the cervical and upper thoracic spine. Spinal Cord: Visualized spinal cord has normal size and signal. No cerebellar tonsillar herniation. Paraspinous Soft Tissues: No paravertebral masses. Prevertebral soft tissues are normal in thickness. C2-C3: Mild disc height loss and desiccation. Mild diffuse disc bulge. Mild facet and uncovertebral hypertrophy bilaterally. Mild canal stenosis. Moderate bilateral foraminal stenosis. C3-C4: Mild disc desiccation and diffuse disc bulge. Moderate facet and uncovertebral hypertrophy bilaterally. Moderate to severe canal stenosis. Minimal anterior cord flattening. Severe bilateral foraminal stenosis with bilateral C4 nerve root compression. C4-C5: Moderate disc height loss and desiccation. Mild diffuse disc bulge/osteophyte. Mild facet and uncovertebral hypertrophy bilaterally. Moderate canal stenosis. Severe bilateral foraminal stenosis with bilateral C5 nerve root compression. C5-C6: Moderate disc height loss and desiccation. Moderate diffuse disc bulge/osteophyte with superimposed left far lateral protrusion/osteophyte. Moderate facet and uncovertebral hypertrophy bilaterally. Moderate to severe canal stenosis. Mild anterior cord flattening. Severe bilateral foraminal stenosis with bilateral C6 nerve root compression. C6-C7: Moderate disc height loss and desiccation. Moderate diffuse disc bulge. Moderate facet and uncovertebral hypertrophy bilaterally. Moderate to severe canal stenosis. Severe bilateral foraminal stenosis with bilateral C7 nerve root compression. C7-T1: Mild disc height loss and desiccation. Mild diffuse disc bulge. Moderate facet and uncovertebral hypertrophy bilaterally. Mild canal stenosis. Severe bilateral foraminal stenosis with bilateral C8 nerve root compression. IMPRESSION: 1. Multilevel degenerative disc and facet disease, as well as uncovertebral hypertrophy. 2. Multilevel canal stenoses, worst at C3-C4 and C5-C6 where there is minimal cord flattening. 3. Multilevel foraminal stenoses, worst at C3-C4, C4-C5, C5-C6, C6-C7, and C7-T1, where there is associated intraforaminal nerve root compression. Recommend correlation with clinical symptoms to ascertain relevance of these findings. Dictated by: Ashtyn Noble M.D. on 03/12/2022 at 8:36 Approved by: Ashtyn Noble M.D. on 03/12/2022 at 9:02
== END ==
PROVIDERS: PCP Internal Medicine; Referring Provider Physical Medicine & Rehabilitation; Visit Provider Physical Medicine & Rehabilitation
DX: M50.11 Cervical disc disorder with radiculopathy, high cervical region (principal); M48.02 Spinal stenosis, cervical region; M47.22 Other spondylosis with radiculopathy, cervical region; G95.9 Disease of spinal cord, unspecified
CPT/HCPCS: 72141

== ENCOUNTER → 2022-05-11 09:44 | Outpatient (CLI) | payer BC, SELFPAY ==
[2022-05-11 11:15] LABS: Total Iron Binding Capacity 329 ug/dL (265-497); Transferrin 266 mg/dL (206-381)
[2022-05-11 11:38] LABS: Thyroid Stimulating Hormone 1.37 uIU/mL (0.47-4.68)
[2022-05-11 11:42] LABS: Ferritin 50 ng/mL (11-264)
[2022-05-11 15:25] LABS: Iron 97 ug/dL (37-170); Percent Iron Saturation 29 % (15-50)
[2022-05-11 17:05] LABS: Hep C Virus Ab w/Reflex Quant NEGATIVE s/c (NEGATIVE)
[2022-05-12 05:29] LABS: Alpha 1 Anti Trypsin 149 mg/dL (101-187); Ceruloplasmin 30.6 mg/dL (19.0-39.0); Hepatitis B Surf AB Quant <3.1 mIU/mL (Immunity>9.9)
[2022-05-12 18:14] LABS: Tissue Transglutaminase IgA <2 U/mL (0-3); t-Transglutaminase IgA <2 U/mL (0-3)
[2022-05-13 12:29] LABS: Hepatitis Be Antibody Negative (Negative)
[2022-05-13 14:12] LABS: Smooth Muscle Antibody 4 Units (0-19)
== END ==
PROVIDERS: PCP Internal Medicine; Referring Provider Internal Medicine Gastroenterology; Visit Provider Internal Medicine Gastroenterology
DX: R94.5 Abnormal results of liver function studies (principal)
CPT/HCPCS: 36415; 82103; 82390; 82728; 83516; 83540; 83550; 84443; 84466; 86376; 86706; 86707; 86803

== ENCOUNTER 2022-07-16 07:56 | Outpatient (CLI) | payer BC, SELFPAY ==
[2022-07-16] VITALS (18 sets, daily range): BP systolic 71–110; BP diastolic 35–74; PULSE 57–77; RESP 14–16; TEMP 37.1; O2SAT 59–98; BMI 24.3
--- NOTE | 2022-07-16 | PATH_ITS ---
[facility] Accession Number: [id number] . 01 Material submitted: . liver - LEFT LIVER . 01 Clinical history: . ABNORMAL RESULTS OF LIVER FUNCTION STUDIES . 01 Diagnosis: Liver, Left, Needle Core Biopsies: Liver with focal bile ductular reaction; please see comment. No fibrosis or significant inflammation seen. No evidence of neoplasm. MRV 07/22/2022 1445 Local . 01 Comment: Sections are of fragmented liver parenchyma with few intact portal tracts present for evaluation. Where seen, portal tracts show no significant inflammatory infiltrate or ductopenia. Focal bile ductular reaction is present. Plasma cells are not identified. Hepatic lobules show no significant steatosis or inflammatory infiltrates. There is no significant fibrosis on a trichrome stain. A PAS stain with diastase is negative for the intrahepatic globules of alpha-1 antitrypsin deficiency. There is no iron deposition seen on an iron stain. A reticulin stain highlights an intact reticulin meshwork. . The laboratory findings of mildly elevated AST and ALT, alkaline phosphatase within normal limits, and negative serologies are noted. The overall features in this biopsy are mild and nonspecific. The finding of focal bile ductular reaction raises the possibility of biliary obstruction; however, given the normal alkaline phosphatase, this is more likely an incidental finding. Features of viral hepatitis, autoimmune hepatitis or steatohepatitis are not seen. . As part of routine quality control clerk, Dr. Jacobs has reviewed this case and agrees with the interpretation of focal bile ductular reaction without specific features to explain the mild elevation in liver enzymes. . 01 Electronically signed: . Johny Magallon MD, PhD, Pathologist NPI- [id number] . 01 Gross description: . LEFT LIVER: Received in formalin are 3 fragment(s) of slater, soft tissue measuring 0.3 x 0.1 x 0.1 cm to 1.1 x 0.1 x 0.1 cm submitted entirely in 1 cassette(s) /BRUCE 07/17/2022 0000 Local . 01 Pathologist provided ICD-10: R94.5 . 01 CPT . 069830, 271208, 979342, 346980, 539446 Specimen Comment: A courtesy copy of this report has been sent to [phone] Performed at: 01 [facility] [address] [place] [address], [place], [place] [id number] MD Jesse De León MD Phone: [phone]
--- NOTE | 2022-07-16 | DI.US.S_ITS ---
PROCEDURE: US BIOPSY LIVER Ultrasound-guided liver biopsy. INDICATIONS: Abnormal results of liver function studies TECHNIQUE: The indications, alternatives, benefits, risks, and complications of the procedure were explained to the patient. Written informed consent was obtained and placed in the chart. Continuous EKG and hemodynamic monitoring was started by trained personnel. Real-time sonography was utilized to choose the site for percutaneous hepatic biopsy. The skin was prepped and draped in the usual sterile fashion. 1% lidocaine was infiltrated down to the hepatic capsule. A coaxial needle was then advanced into the liver under direct sonographic visualization. A biopsy apparatus was then utilized, and core biopsies were obtained. The needle was then withdrawn; a bandage and overlying weight were applied to the biopsy site. COMPARISON: [facility], , ABDOMEN LIMITED, 02/02/2022, 12:27. FINDINGS: Biopsy site(s): Left hepatic lobe Needle: [employer] biopsy needle set. Number of passes: 5 Medications: 1% lidocaine for local anaesthesia. Patient declined conscious sedation. Complications: None. IMPRESSION: Successful ultrasound-guided liver biopsy, with pathology results pending. Dictated by: Donavan Diaz M.D. on 07/16/2022 at 10:46 Approved by: Donavan Diaz M.D. on 07/16/2022 at 10:47
[2022-07-16 08:25] LABS: Add Manual Diff / Slide Review NO; Basophils Absolute Auto 0 /uL (0-100); Basophils Percent Auto 0.6 % (0-2); Eosinophils Absolute Auto 0 /uL (0-450); Eosinophils Percent Auto 0.8 % (2-4); Hematocrit 34.5 % (36-46); Hemoglobin 11.8 g/dL (12.0-16.0); Lymphocytes Absolute Auto 500 /uL (1100-4500); Mean Corpuscular HGB Conc 34.2 % (30-36); Mean Corpuscular Hemoglobin 30.6 PG (26-34); Mean Corpuscular Volume 89.7 fL (80-100); Monocytes Absolute Auto 500 /uL (0-900); Monocytes Percent Auto 7.9 % (3-14); Neutrophils Absolute Auto 4700 /uL (1500-7000); Neutrophils Percent Auto 81.7 % (50-75); Platelet Count 203 X10^3/uL (150-400); Red Blood Cell Count 3.85 X10^6/uL (4.0-5.2); Red Cell Distribution Width 13.6 % (11.6-14.8); White Blood Cell Count 5.8 X10^3/uL (4.5-11.0)
[2022-07-16 08:31] LABS: Prothrombin Time 11.6 SECONDS (10.1-12.7)
[2022-07-16 08:34] LABS: PTT Partial Thromboplastin Tim 32 SECONDS (26-36)
--- NOTE | 2022-07-16 09:48 | PC.NURSE ---
pt awake alert Ox3, stated no pain. BP remains low. HR remains stable.
--- NOTE | 2022-07-16 10:51 | SUR.PHASEII ---
1000- Received report from DI and pt to bed 4 post liver bx. Sandbag to abd and puncture site covered with bandaid. D&I. See vss flow record. Pt A&O x 3 with no complaints.
[2022-07-16 12:51] LABS: Hematocrit 32.5 % (36-46)
== END 2022-07-16 13:35 | disposition home or self-care (01) ==
PROVIDERS: PCP Internal Medicine; Referring Provider Internal Medicine Gastroenterology; Visit Provider Internal Medicine Gastroenterology
PROC: BF25ZZZ Computerized Tomography (CT Scan) of Liver (ICD-10-PCS; CPT 47000; principal; 2022-07-16 09:30)
DX: R94.5 Abnormal results of liver function studies (principal)
CPT/HCPCS: 36415; 47000; 76942; 85014; 85025; 85610; 85730

== ENCOUNTER → 2022-09-28 15:50 | Outpatient (CLI) | payer BC, SELFPAY ==
[2022-09-28 16:55] LABS: Add Manual Diff / Slide Review NO; Basophils Absolute Auto 0 /uL (0-100); Basophils Percent Auto 0.5 % (0-2); Eosinophils Absolute Auto 100 /uL (0-450); Eosinophils Percent Auto 2.4 % (2-4); Hematocrit 37.9 % (36-46); Hemoglobin 12.9 g/dL (12.0-16.0); Lymphocytes Absolute Auto 900 /uL (1100-4500); Lymphocytes Percent Auto 14.4 % (25-40); Mean Corpuscular Hemoglobin 30.7 PG (26-34); Mean Corpuscular Volume 90.3 fL (80-100); Monocytes Absolute Auto 500 /uL (0-900); Monocytes Percent Auto 8.3 % (3-14); Neutrophils Absolute Auto 4400 /uL (1500-7000); Neutrophils Percent Auto 74.4 % (50-75); Platelet Count 228 X10^3/uL (150-400); Red Cell Distribution Width 13.3 % (11.6-14.8)
[2022-09-28 17:21] LABS: Alanine Aminotransferase 120 IU/L (<35); Albumin 4.2 g/dL (3.5-5.0); Albumin Globulin Ratio 1.6 (1.0-2.8); Alkaline Phosphatase 106 U/L (38-126); Aspartate Aminotransferase 68 IU/L (14-36); BUN Creatinine Ratio 21.5 (6-22); Bilirubin Total 0.2 mg/dL (0.2-1.3); Blood Urea Nitrogen 23 mg/dL (7-17); Calcium 9.2 mg/dL (8.4-10.2); Carbon Dioxide 27 mmol/L (22-32); Chloride 101 mmol/L (98-107); Estimated Glomerular Filt Rate > 60 mL/min (>60); Globulin 2.7 g/dL (1.7-4.1); Glucose 86 mg/dL (70-100); HEMOLYSIS < 15 (0-50); Potassium 4.1 mmol/L (3.4-5.1); Sodium 137 mmol/L (137-145); Total Protein 6.9 g/dL (6.3-8.2)
[2022-10-05 09:37] LABS: Lamotrigine Lamictal 5.6 ug/mL (2.0-20.0)
== END ==
PROVIDERS: PCP Internal Medicine; Referring Provider Psychiatry & Neurology Neurology; Visit Provider Psychiatry & Neurology Neurology
DX: R56.9 Unspecified convulsions (principal)
CPT/HCPCS: 36415; 80053; 80175; 82652; 85025

== ENCOUNTER → 2022-10-08 09:22 | Outpatient (CLI) | payer BC, SELFPAY ==
--- NOTE | 2022-10-08 | DI.MG.S_ITS ---
BILATERAL DIGITAL SCREENING MAMMOGRAM 3D/2D WITH CAD: 10/08/2022 CLINICAL: Routine screening. Comparison is made to exams dated: 10/06/2021 mammogram, 09/10/2020 mammogram - [facility], and 06/19/2019 mammogram - outside location. Both breasts are heterogeneously dense, which may obscure small masses (category c / 51-75% glandular tissue). Current study was also evaluated with a Computer Aided Detection (CAD) system. No significant masses, calcifications, or other findings are seen in either breast. There has been no significant interval change. IMPRESSION: NEGATIVE There is no mammographic evidence of malignancy. A 1 year screening mammogram is recommended. Based on the Tyrer Cuzick model (a risk assessment model) the patient's lifetime risk is 14.9% and her 10 year risk is 5.0%. According to the ACR, ACS, and NCCN guidelines, an annual breast MRI exam along with mammogram is recommended if the patient's lifetime risk is 20% or greater. This exam was interpreted at Station ID: [id number]. NOTE: For mammograms, a report in lay terms will be sent to the patient. Approximately 15% of breast malignancies will not be visualized mammographically. In the management of a palpable breast mass, a negative mammogram must not discourage biopsy of a clinically suspicious lesion. Electronically Signed By: Brandy stephens/eugenio:10/08/2022 16:50:31 letter sent: Normal Exam ACR BI-RADS Category 1: Negative [id number]
== END ==
PROVIDERS: PCP Internal Medicine; Referring Provider Internal Medicine; Visit Provider Internal Medicine
DX: Z12.31 Encounter for screening mammogram for malignant neoplasm of breast (principal)
CPT/HCPCS: 77063; 77067

== ENCOUNTER 2022-10-14 07:08 | Outpatient (CLI) | payer BC, SELFPAY ==
[2022-10-14] VITALS (7 sets, daily range): BP systolic 112–137; BP diastolic 57–65; PULSE 20–75; RESP 14–20; TEMP 36.4; O2SAT 99–100
--- NOTE | 2022-10-14 07:10 | DI.RAD.S_ITS ---
PROCEDURE: PAIN L/SI FACET INJ/BLK 1STL INDICATIONS: SPONDYLOSIS COMPARISON: None. FINDINGS: Fluoroscopic spot filming was performed to verify placement of spinal needles at the left L3-L4 and left L4-L5 facet level(s), as labeled on the films. IMPRESSION: C-arm fluoroscopy utilized for 2 level lumbar facet injection. Dictated by: Sonny Mathews M.D. on 10/14/2022 at 16:45 Approved by: Sonny Mathews M.D. on 10/14/2022 at 16:46
[2022-10-14] MEDS: MIDAZOLAM 2 MG/2 ML VIAL IV (08:13)
[2022-10-14] MEDS: IOPAMIDOL 15 ML VIAL 3 ML INJ (08:21)
[2022-10-14] MEDS: BUPIVACAINE 0.5% (PF) VIAL 5 ML INJ (08:22)
[2022-10-14] MEDS: BETAMETHASONE 30 MG/5 ML MDV 12 MG INJ (08:22)
--- NOTE | 2022-10-14 08:28 | P.PCN_ITS ---
Date/Time/Diagnoses Date of procedure: 10/14/22 Time of procedure: 08:28 Pre-procedure diagnosis: 1. FACET ARTHROPATHY, 2. AXIAL LBP, 3. MULTILEVEL DDD Post-procedure diagnosis: same Procedure Notes Procedure: 1. FLUOROSCOPICALLY GUIDED CONTRAST CONTROLLED FACET JOINT INJECTIONS LEFT L3/4, L4/5 Indications: Alma is referred by Dr. Malik for treatment of Axial LBP Physician: Tomasz Magallon Total Fluoroscopy time (seconds): 6 Total sedation minutes: 10 Complications: none Procedure in detail & Post-procedure care: FINDINGS Multilevel Facet Arthropathy with Clinically significant axial LBP DESCRIPTION OF PROCEDURE Fluoroscopically guided, contrast-controlled left L3/4, L4/5 facet joint injections. Following review of allergy and review of potential side effects and complications, including, but not necessarily limited to, infection, allergic reaction, local tissue breakdown, stroke, temporary or permanent nerve injury, paralysis, and possible , the patient indicated that the patient understood and agreed to proceed. An informed consent document was signed by the patient, witnessed by a nurse, and placed in the patient's chart. Additionally, other treatment options including medications, modalities, and physical therapy were reviewed with the patient. After review of previous anaesthesic history and IV conscious sedation the patient was deemed safe to proceed with today?s procedure with IV conscious sedation as ASA class II designation. Safety time-out was performed to confirm patient ID, procedure to be performed and site of procedure. IV sedation was accomplished with a combination of 2mg of Versed administered by the RN after DO order, titrated to patient comfort during the course of the procedure while the patient remained responsive to all verbal commands. In the prone position, following sterile prep and drape of the lumbar region, the posterior aspect of the left L3/4, L4/5 facet joints were identified fluoroscopically. The skin was anesthetized via a 25-gauge 1.5-inch needle with 1% lidocaine solution into the corresponding facet joints. At this point, a 22- gauge 3.5-inch spinal needle was atraumatically introduced and advanced under fluoroscopic guidance into the corresponding facet joints. Following negative aspiration, injections of approximately 0.2cc of Isovue 200 confirmed interarticular placement without vascular uptake. Radiological data, including multiple fluoroscopic views of the lumbosacral spine, reveal a spinal needle at the left L3/4, L4/5 facet joints. Subsequent views show flow of contrast material both superiorly and inferiorly within the joint space without vascular or intrathecal uptake. At this point, a total of 0.5cc including a mixture of 0.25cc Marcaine and 0.25cc betamethasone was injected without complication into each of the corresponding facet joints. The patient tolerated the procedure well without signs or symptoms of complications prior to transfer to the recovery area for further monitoring. The patient was then transferred to the recovery area where they were observed for an appropriate period of time after the injection. The patient reported a VAS score of 7 prior to the procedure and a post-procedure VAS of 0. POSTOP INSTRUCTIONS The patient was provided a Pain Log to continue to record their response to the target-specific procedure prior to follow-up visit with their referring physician. Additionally, specific post-injection care instructions and a contact number to our office were provided if concerns arise regarding possible complications associated with the procedure are suspected.
== END 2022-10-14 08:53 | disposition home or self-care (01) ==
LOC: RAD 07:09
PROVIDERS: PCP Internal Medicine; Referring Provider Physical Medicine & Rehabilitation; Visit Provider Physical Medicine & Rehabilitation
DX: M47.816 Spondylosis without myelopathy or radiculopathy, lumbar region (principal); M51.36 Other intervertebral disc degeneration, lumbar region
CPT/HCPCS: 64493; 64494; 99152; J0702; J2250

== ENCOUNTER → 2022-10-26 13:07 | Outpatient (CLI) | payer BC, SELFPAY ==
[2022-10-26 13:30] LABS: Add Manual Diff / Slide Review NO; Basophils Absolute Auto 100 /uL (0-100); Eosinophils Absolute Auto 100 /uL (0-450); Eosinophils Percent Auto 1.7 % (2-4); Hematocrit 36.8 % (36-46); Hemoglobin 12.4 g/dL (12.0-16.0); Lymphocytes Absolute Auto 1400 /uL (1100-4500); Lymphocytes Percent Auto 17.4 % (25-40); Mean Corpuscular HGB Conc 33.8 % (30-36); Mean Corpuscular Hemoglobin 30.5 PG (26-34); Mean Corpuscular Volume 90.4 fL (80-100); Monocytes Absolute Auto 700 /uL (0-900); Monocytes Percent Auto 8.8 % (3-14); Neutrophils Absolute Auto 5600 /uL (1500-7000); Neutrophils Percent Auto 71.1 % (50-75); Platelet Count 214 X10^3/uL (150-400); Red Blood Cell Count 4.07 X10^6/uL (4.0-5.2); Red Cell Distribution Width 13.3 % (11.6-14.8); White Blood Cell Count 7.9 X10^3/uL (4.5-11.0)
[2022-10-26 13:45] LABS: Alanine Aminotransferase 157 IU/L (<35); Albumin 4.1 g/dL (3.5-5.0); Albumin Globulin Ratio 1.4 (1.0-2.8); Alkaline Phosphatase 94 U/L (38-126); Aspartate Aminotransferase 96 IU/L (14-36); BUN Creatinine Ratio 16.3 (6-22); Bilirubin Total 0.3 mg/dL (0.2-1.3); Blood Urea Nitrogen 13 mg/dL (7-17); Calcium 9.2 mg/dL (8.4-10.2); Carbon Dioxide 27 mmol/L (22-32); Chloride 100 mmol/L (98-107); Estimated Glomerular Filt Rate > 60 mL/min (>60); Globulin 2.9 g/dL (1.7-4.1); Glucose 72 mg/dL (70-100); HEMOLYSIS < 15 (0-50); Sodium 136 mmol/L (137-145)
== END ==
PROVIDERS: PCP Internal Medicine; Referring Provider Psychiatry & Neurology Neurology; Visit Provider Psychiatry & Neurology Neurology
DX: R89.9 Unspecified abnormal finding in specimens from other organs, systems and tissues (principal)
CPT/HCPCS: 36415; 80053; 85025

== ENCOUNTER 2022-11-14 11:24 | Emergency (ER) | payer OTHER, SELFPAY ==
[2022-11-14] VITALS (7 sets, daily range): BP systolic 115–134; BP diastolic 63–66; PULSE 67–80; RESP 16; TEMP 36.9; O2SAT 96–100; BMI 23.6
--- NOTE | 2022-11-14 11:51 | ED.SEIZURE ---
HPI - Seizure General Chief Complaint: Seizure Stated Complaint: Covid+/had seizure Time Seen by Provider: 11/14/22 11:43 History of Present Illness HPI Narrative: 57-year-old female nonsmoker with a single prior seizure presents for evaluation of what she thinks is likely a another seizure. She states that she had relatively recently been diagnosed with COVID and had been at her relative baseline and then woke up today on the ground and felt a bit confused and states this is what it was like when she had her 1 prior seizure which was thought to be related to medications that lowered her seizure threshold years ago. She was in her normal state of health prior and denies any prodromal symptoms. She did not bite her tongue, suffered no injury and did not lose control of her bladder. Her postictal symptoms and confusion seemed to last about 90 minutes or so and have completely resolved prior to her arrival. She is been established with Neurology at [facility] (Dr. Houston) and had at least 1 seizure that sounds like a generalized tonic-clonic seizure that was thought to be related to a decreased seizure threshold secondary to Wellbutrin. After evaluation by Neurology it sounds like they considered her to of likely had multiple episodes of prior focal seizures based on her history alone. She had been placed on Lamictal and has been taking it religiously (150 mg twice daily, she states that she last however her level checked a month or 2 ago and her number was at the bottom of the normal range and there was some discussion about whether not her dosing would need to be increased but that is yet to happen. She denies any headache, fever or neck pain. Related Data Home Medications Medication Instructions Recorded Confirmed estradiol 1 mg-progesterone 100 mg 1 cap PO QPM 09/10/20 09/20/22 capsule (Bijuva) omega-3 fatty acids 1,000 mg 1,000 mg PO DAILY 09/10/20 09/20/22 capsule rosuvastatin 10 mg tablet 10 mg PO DAILY 09/10/20 09/20/22 cholecalciferol (vitamin D3) 50 50 mcg PO DAILY 11/24/21 09/20/22 mcg (2,000 unit) capsule (Vitamin D3) lamotrigine 150 mg tablet 150 mg PO DAILY 06/07/22 09/20/22 montelukast 10 mg tablet 10 mg PO DAILY 06/07/22 09/20/22 spironolactone 50 mg tablet 50 mg PO DAILY 06/07/22 09/20/22 gabapentin 100 mg capsule 100 mg PO BEDTIME 09/20/22 09/20/22 telmisartan 20 mg tablet 20 mg PO DAILY 09/20/22 09/20/22 Previous Rx's Medication Instructions Recorded aripiprazole 2 mg tablet 2 mg PO DAILY #90 tabs 06/03/22 duloxetine 60 mg capsule,delayed 120 mg PO DAILY #180 caps 06/03/22 release fluoxetine 40 mg capsule 160 mg PO DAILY #360 caps 06/03/22 modafinil 200 mg tablet 400 mg PO DAILY #180 tabs 11/09/22 lamotrigine 200 mg tablet 200 mg PO BID #60 tabs 11/14/22 (Lamictal) Allergies Allergy/AdvReac Type Severity Reaction Status Date / Time No Known Drug Allergies Allergy Verified 09/20/22 08:04 Review of Systems Review of Systems Narrative: GENERAL: Denies chills, fatigue, malaise, fever, sweats. HEENT: Denies sinus pain, ear pain, sore throat, difficulty swallowing, dizziness. RESPIRATORY: Denies dyspnea, cough, wheezing, hemoptysis, sputum. CARDIOVASCULAR: Denies chest pain, palpitations, orthopnea, edema, GASTROINTESTINAL: Denies nausea, vomiting, abdominal pain, diarrhea, constipation, melena. : Denies dysuria, frequency, incontinence, hematuria, urinary retention. MUSCULOSKELETAL: denies weakness, joint pain, or bony pain SKIN: Denies rash, skin lesions, or other NEUROLOGIC: See HPI PSYCHIATRIC: No concerning psychosocial issues. 12 point review of systems is negative except for those stated above Patient History Medical History Acne (~1979) Anxiety (~1985) Carpal tunnel syndrome (~1994) Cervical myelopathy with cervical radiculopathy Chicken pox Depression (~1985) Eczema (~1975) Facet arthropathy, lumbar Hyper reflexia Lumbar radiculopathy MMN (multifocal motor neuropathy) Ovarian cyst Restless leg syndrome (~2009) Scoliosis Vaginal delivery Surgical History Anesthesia History of carpal tunnel release (~09/2021) Family History Father History of heart disease Hypertension Hyperlipidemia Mother Mental health problem Brother Mental health problem Social History household members: spouse Smoking Status: Never smoker alcohol intake: current Smoking Status: Never smoker alcohol intake frequency: holidays/special occasions only Substance Use Type: does not use Exam Narrative Exam Narrative: GENERAL: [57] year old patient appears stated age. Well-developed patient, in mild distress. HEAD: Atraumatic. Normocephalic. EYES: Pupils equal round and reactive. Extraocular motions intact. No scleral icterus. No injection or drainage. ENT: Nose without bleeding, purulent drainage. Throat without erythema, tonsillar hypertrophy or exudate. Airway patent. NECK: Trachea midline. Non tender, no meningeal signs CARDIOVASCULAR: Regular rate and rhythm without murmurs, gallops, or rubs. RESPIRATORY: Clear to auscultation. Breath sounds equal bilaterally. No wheezes, rales, or rhonchi. GASTROINTESTINAL: Abdomen soft, non-tender, nondistended. EXTREMITIES: No edema or joint tenderness. BACK: Nontender without deformity or crepitance. No flank tenderness. NEURO: AOx3. SKIN: No rash or erythema of visible areas NIH Stroke Scale 1a. LOC: Patient is alert and keenly responsive (0) 1b. LOC Questions: Patient answers both LOC questions accurately (0) 1c. LOC Commands: Patient performs both tasks correctly (0) 2. Best Gaze: Normal (0) 3. Visual: No visual loss (0) 4. Facial palsy: Normal symmetrical movements (0) 5. Motor arm: No drift (0) 6. Motor leg: No drift (0) 7. Limb ataxia: Absent (0) 8. Sensory: Normal (0) 9. Best language: No aphasia; normal (0) 10. Dysarthria: Normal (0) 11. Extinction and inattention: No abnormality (0) NIHSS: 0 Initial Vital Signs Initial Vital Signs: Vital Signs Pulse Rate 76 11/14/22 11:36 Pulse Oximetry 99 11/14/22 11:36 Course Orders Ordered: ED Orders 11/14/22 11:52 CT head/brain wo con Stat 11/14/22 12:11 Basic Metabolic Panel Stat Complete Blood Count AUTO DIFF Stat Lactate (Lactic Acid) Stat Magnesium Stat Prolactin Stat 11/14/22 13:10 Lamotrigine Lamictal Stat Consultations Consultation #1: call to [facility] product consultant neurology at [facility] . After careful discussions patient's history, physical exam, labs and imaging we sure the opinion that she likely had a seizure today. There is no indication of a secondary cause. There is note of a recent Lamictal level that is within the normal range though at the lower end. There had been some discussion about potentially increasing her Lamictal. Neurology recommends increasing Lamictal from 150 to 200 twice daily with close follow-up in the office Time: 13:13 Vital Signs Vital signs: Vital Signs - 8 hr 11/14/22 11:38 Temperature 98.4 F Pulse Rate 80 Respiratory Rate 16 Blood Pressure 134/63 Pulse Oximetry 100 Oxygen Delivery Method Room Air MDM - Seizure Lab Data Result diagrams: 11/14/22 12:11 11/14/22 12:11 Labs: Lab Results 11/14/22 11/14/22 11/14/22 Range/Units 12:11 12:11 12:11 WBC 10.0 (4.5-11.0) X10^3/uL RBC 4.45 (4.0-5.2) X10^6/uL Hgb 13.4 (12.0-16.0) g/dL Hct 39.5 (36-46) % MCV 88.7 (80-100) fL MCH 30.1 (26-34) PG MCHC 33.9 (30-36) % RDW 13.0 (11.6-14.8) % Plt Count 284 (150-400) X10^3/uL Neut % (Auto) 80.8 H (50-75) % Lymph % (Auto) 10.3 L (25-40) % [place] % (Auto) 8.0 (3-14) % Eos % (Auto) 0.7 L (2-4) % Baso % (Auto) 0.2 (0-2) % Neut # (Auto) 8100 H (2039-7039) /uL Lymph # (Auto) 1000 L (3667-5826) /uL [place] # (Auto) 800 (0-900) /uL Eos # (Auto) 100 (0-450) /uL Baso # (Auto) 0 (0-100) /uL Sodium 135 L (137-145) mmol/L Potassium 4.7 (3.4-5.1) mmol/L Chloride 98 (98-107) mmol/L Carbon Dioxide 26 (22-32) mmol/L BUN 18 H (7-17) mg/dL Creatinine 0.73 (0.52-1.04) mg/dL Estimated GFR > 60 (>60) mL/min BUN/Creatinine Ratio 24.7 H (6-22) Glucose 99 (70-100) mg/dL Lactate 1.2 (0.7-2.1) mmol/L Calcium 9.4 (8.4-10.2) mg/dL Magnesium 1.8 (1.6-2.3) mg/dL Prolactin 15.9 (3.0-18.6) ng/mL MDM Narrative Medical decision making narrative: CC: 57-year-old female with history of seizures presents with concern of a possible unwitnessed seizure Complicating co-morbidities: Seizure disorder, neuropathy, myelopathy, radiculopathy Data collected from: Patient and Medical records reviewed: Including multiple prior notes in our EMR, additional discussion with on-call Neurology at [facility] who was able to review their notes with me Differential considered, but not limited to: Seizure from subtherapeutic medications, secondary causes, syncope versus other Exam documented above, pertinent findings include: Patient alert and oriented, no meningeal signs, GCS 15 A&O x3. NIH 0. No tongue injury, no evidence of loss of bladder Lab Test results independently reviewed as above. Pertinent findings: No significant abnormal findings, Lamictal level is a send out Independently reviewed EKG as above Imaging studies independently reviewed: CT of head unremarkable Scores Used: NIHSS Consultations: Dr. Mendenhall ([facility] Neurology) Re-evaluations: Patient asymptomatic for duration of visit Discussion: 57-year-old female had episode confusion, woke up on the floor, no significant prodromal symptoms. She did have about 90 minutes of gradually increasing clarity consistent with postictal phase. It is known that she had recently relatively low Lamictal levels and Neurology was already considering increasing her dose. Thankfully her exam is very reassuring, labs and imaging as well as history and physical would suggest against any secondary cause such as electrolyte abnormality, intracranial hemorrhage or other. She has no fever, headache or neck pain, meningitis, encephalitis thought extremely unlikely. She does not drink alcohol. I discussed this with on-call Neurology who shares his opinion, recommends increasing dose of Lamictal, typical return precautions and close follow-up with the office Disposition: see below, along with detailed discharge instructions that have been reviewed with patient as well as indications for ED re-evaluation and additional outpatient follow up Discharge Plan Departure Patient Disposition: Home Clinical Impression: Seizure Instructions: DI for Seizure Disorder -- Adult Activity Restrictions/Additional Instructions: *You have been diagnosed with [ seizure] *What to do: *Per my discussion with Dr. Houston's partner we will increase your Lamictal dose from 150mg twice daily to 200mg twice daily. Please continue to take your regular medications as directed. [x] New medication prescriptions sent to your pharmacy: [ [facility]] [ ] New medication written as a paper prescription [ ] No new medications given *Please follow up with your primary Neurologist in 2-3 days, call for an appointment. Let them know you were seen in the Emergency Department and that we ask that you be seen in follow up. We will electronically transmit a record of today's note *Return to Emergency Department if you should have any new, worsening or concerning symptoms, such as [fever greater than 101 F, shaking chills, worsening pain, persistent vomiting or other bothersome symptoms] Prescriptions: New lamotrigine [Lamictal] 200 mg tablet 200 mg PO BID Qty: 60 0RF No Action omega-3 fatty acids 1,000 mg capsule 1,000 mg PO DAILY Bijuva 1-100 mg capsule 1 cap PO QPM rosuvastatin 10 mg tablet 10 mg PO DAILY aripiprazole 2 mg tablet 2 mg PO DAILY Qty: 90 3RF duloxetine 60 mg capsule,delayed release(DR/EC) 120 mg PO DAILY Qty: 180 3RF fluoxetine 40 mg capsule 160 mg PO DAILY Qty: 360 3RF modafinil 200 mg tablet 400 mg PO DAILY Qty: 180 3RF cholecalciferol (vitamin D3) [Vitamin D3] 50 mcg (2,000 unit) capsule 50 mcg PO DAILY telmisartan 20 mg tablet 20 mg PO DAILY gabapentin 100 mg capsule 100 mg PO BEDTIME lamotrigine 150 mg tablet 150 mg PO DAILY spironolactone 50 mg tablet 50 mg PO DAILY montelukast 10 mg tablet 10 mg PO DAILY Referrals: Tomasz Malik MD [Primary Care Provider] - Tigre Houston MD [Non-Staff] - Stand Alone Forms: Patient Portal/API
--- NOTE | 2022-11-14 11:52 | DI.CT.S_ITS ---
PROCEDURE: CT HEAD/BRAIN WO CON INDICATIONS: new onset seizure TECHNIQUE: Noncontrast 4.5 mm thick angled axial sections acquired from the foramen magnum to the vertex, with coronal and sagittal reformats. For radiation dose reduction, the following was used: automated exposure control, adjustment of mA and/or kV according to patient size. COMPARISON: [facility], CT, CT HEAD/BRAIN WO CON, 04/14/2021, 8:09. FINDINGS: Image quality: Excellent. CSF spaces: Basal cisterns are patent. No extra-axial fluid collections. Ventricles are normal in size and shape. Brain: No midline shift. No intracranial masses or hemorrhage. Means-white matter interface is normal. Skull and face: Calvarium and visualized facial bones are intact, without suspicious lesions. Sinuses: Visualized sinuses and mastoids are clear. IMPRESSION: No acute intracranial abnormality. Approved by: Donavan Diaz M.D. on 11/14/2022 at 12:38
[2022-11-14 12:24] LABS: Add Manual Diff / Slide Review NO; Basophils Absolute Auto 0 /uL (0-100); Basophils Percent Auto 0.2 % (0-2); Eosinophils Absolute Auto 100 /uL (0-450); Eosinophils Percent Auto 0.7 % (2-4); Hematocrit 39.5 % (36-46); Hemoglobin 13.4 g/dL (12.0-16.0); Lymphocytes Absolute Auto 1000 /uL (1100-4500); Lymphocytes Percent Auto 10.3 % (25-40); Mean Corpuscular HGB Conc 33.9 % (30-36); Mean Corpuscular Hemoglobin 30.1 PG (26-34); Mean Corpuscular Volume 88.7 fL (80-100); Monocytes Absolute Auto 800 /uL (0-900); Neutrophils Absolute Auto 8100 /uL (1500-7000); Neutrophils Percent Auto 80.8 % (50-75); Platelet Count 284 X10^3/uL (150-400); Red Blood Cell Count 4.45 X10^6/uL (4.0-5.2)
[2022-11-14 12:38] LABS: BUN Creatinine Ratio 24.7 (6-22); Blood Urea Nitrogen 18 mg/dL (7-17); Calcium 9.4 mg/dL (8.4-10.2); Carbon Dioxide 26 mmol/L (22-32); Chloride 98 mmol/L (98-107); Estimated Glomerular Filt Rate > 60 mL/min (>60); Glucose 99 mg/dL (70-100); HEMOLYSIS < 15 (0-50); Lactate (Lactic Acid) 1.2 mmol/L (0.7-2.1); Magnesium 1.8 mg/dL (1.6-2.3); Potassium 4.7 mmol/L (3.4-5.1); Sodium 135 mmol/L (137-145)
[2022-11-14 12:54] LABS: Prolactin 15.9 ng/mL (3.0-18.6)
[2022-11-17 12:20] LABS: Lamotrigine Lamictal 5.2 ug/mL (2.0-20.0)
== END 2022-11-14 13:49 | disposition home or self-care (01) ==
PROVIDERS: Emergency Provider Emergency Medicine; PCP Internal Medicine
DX: G40.909 Epilepsy, unspecified, not intractable, without status epilepticus (principal)
CPT/HCPCS: 36415; 70450; 80048; 80175; 83605; 83735; 84146; 85025; 99284

== ENCOUNTER → 2022-11-22 11:26 | Outpatient (CLI) | payer OTHER, SELFPAY ==
[2022-11-22 12:52] LABS: Influenza A - CEPHEID Flu A NEGATIVE (NEGATIVE); Influenza B - CEPHEID Flu B NEGATIVE (NEGATIVE); Respiratory Syncytial Virus NEGATIVE (Not Detect)
== END ==
PROVIDERS: PCP Internal Medicine; Visit Provider Nurse Practitioner Family
DX: R05.9 Cough, unspecified (principal); R11.0 Nausea
CPT/HCPCS: 87502; 87634

== ENCOUNTER → 2022-12-07 16:42 | Outpatient (CLI) | payer OTHER, SELFPAY ==
[2022-12-07 18:11] LABS: C-Reactive Protein Quant < 0.5 mg/dL (<1.0); Uric Acid 3.3 mg/dL (2.5-6.2)
[2022-12-07 18:13] LABS: Alanine Aminotransferase 144 IU/L (<35); Albumin 4.2 g/dL (3.5-5.0); Albumin Globulin Ratio 1.6 (1.0-2.8); Alkaline Phosphatase 124 U/L (38-126); Aspartate Aminotransferase 87 IU/L (14-36); BUN Creatinine Ratio 22.9 (6-22); Bilirubin Total 0.2 mg/dL (0.2-1.3); Blood Urea Nitrogen 19 mg/dL (7-17); Calcium 9.1 mg/dL (8.4-10.2); Carbon Dioxide 29 mmol/L (22-32); Chloride 99 mmol/L (98-107); Estimated Glomerular Filt Rate > 60 mL/min (>60); Globulin 2.7 g/dL (1.7-4.1); Glucose 88 mg/dL (70-100); HEMOLYSIS < 15 (0-50); Potassium 3.9 mmol/L (3.4-5.1); Sodium 138 mmol/L (137-145); Total Protein 6.9 g/dL (6.3-8.2)
[2022-12-07 18:16] LABS: Rheumatoid Factor < 8.6 IU/mL (<12.0)
[2022-12-07 18:38] LABS: TSH w/ Reflex to FT4 2.94 uIU/mL (0.47-4.68)
[2022-12-07 19:51] LABS: Erythrocyte Sedimentation Rate 16 MM/HR (0-20)
[2022-12-11 16:36] LABS: ANA Screen, IFA Negative (.)
== END ==
PROVIDERS: Psychiatry & Neurology Psychiatry; PCP Internal Medicine; Referring Provider Psychiatry & Neurology Neurology; Visit Provider Psychiatry & Neurology Neurology
DX: M25.50 Pain in unspecified joint (principal); R53.83 Other fatigue; M79.674 Pain in right toe(s); F33.2 Major depressive disorder, recurrent severe without psychotic features; Z79.899 Other long term (current) drug therapy
CPT/HCPCS: 36415; 80053; 84443; 84550; 85651; 86038; 86140; 86430

== ENCOUNTER → 2022-12-22 08:41 | Outpatient (CLI) | payer OTHER, SELFPAY ==
--- NOTE | 2022-12-22 | DI.MRI.S_ITS ---
PROCEDURE: MR HEAD/BRAIN WO/W CON INDICATIONS: SEIZURE DISORDER/APHASIA TECHNIQUE: Noncontrast axial T1 spin echo, axial T2 fast spin echo, sagittal and axial FLAIR, axial gradient echo, axial diffusion and ADC, coronal thin-slice T2 FSE through the brain. Optional contrast, followed by axial and coronal and sagittal 3D VIBE or T1 spin echo with fat saturation sequences through the brain. COMPARISON: [facility], CT, CT HEAD/BRAIN WO CON, 11/14/2022, 11:57. [facility], MR, MR BRAIN SEIZURE WITH/WITHOUT CONTRAST, 05/14/2021, 13:06. FINDINGS: Image quality: Excellent. CSF spaces: Ventricles are normal in size and shape. Basal cisterns are patent. No extra-axial fluid collections. Brain: No intracranial bleeds or mass effects. No abnormal intracranial enhancement. Means-white matter interface appears intact. Diffusion weighted images demonstrate no acute ischemic insults. Brainstem appear normal. Normal intravascular flow voids are present. The hippocampal regions appear normal and symmetric in morphology. Skull and face: Calvarial marrow signal is normal. Orbits appear normal. Sinuses: Moderate mucosal thickening is seen within the left maxillary sinus. Mild mucosal thickening is seen elsewhere within the paranasal sinuses. No abnormal fluid is seen within the mastoid air cells. IMPRESSION: Normal brain MRI for age, without a cause of seizures identified. The hippocampi demonstrate a normal, symmetric appearance. No masses or abnormal enhancement can be seen. No findings of acute or subacute infarction can be seen. Dictated by: Luis Apodaca M.D. on 12/22/2022 at 10:12 Approved by: Luis Apodaca M.D. on 12/22/2022 at 10:14
== END ==
PROVIDERS: PCP Physician Assistant; Referring Provider Psychiatry & Neurology Neurology; Visit Provider Psychiatry & Neurology Neurology
DX: G40.909 Epilepsy, unspecified, not intractable, without status epilepticus (principal); R47.01 Aphasia
CPT/HCPCS: 70553; A9579

== ENCOUNTER 2022-12-30 10:05 | Day surgery (SDC) | payer OTHER, SELFPAY ==
[2022-12-23 15:25] VITALS: BMI 24.2
[2022-12-30] VITALS (11 sets, daily range): BP systolic 98–123; BP diastolic 48–77; PULSE 60–88; RESP 16–17; TEMP 36.4–37.2; O2SAT 78–100; BMI 24.0
[2022-12-30] MEDS: LACTATED RINGERS 1,000 ML 100 ML IV ×2 (10:35→15:50)
[2022-12-30 12:00] LABS: COVID19 -Nasal RAPID Negative (Negative)
--- NOTE | 2022-12-30 12:12 | P.HPOB_ITS ---
History of Present Illness History of Present Illness Reason for admission: other (Cystocele and rectocele) Narrative: Alma Eden is a 57 year old female 4 para 2 who presents for an anterior and posterior repair due to a symptomatic cystocele and rectocele. [facility] Medical History (Updated 12/23/22 @ 15:27 by Becky Maldonado RN) Acne (~1979) Anxiety (~1985) Carpal tunnel syndrome (~1994) Cervical myelopathy with cervical radiculopathy Chicken pox COVID-19 virus infection (11/05/22) Depression (~1985) Eczema (~1975) Facet arthropathy, lumbar Hyper reflexia Lumbar radiculopathy MMN (multifocal motor neuropathy) Ovarian cyst Restless leg syndrome (~2009) Scoliosis Vaginal delivery Surgical History Anesthesia History of carpal tunnel release (~09/2021) Family History Father History of heart disease Hypertension Hyperlipidemia Mother Mental health problem Brother Mental health problem Social History household members: spouse Smoking Status: Never smoker alcohol intake: current Meds Home Medications and Allergies Home Medications Medication Instructions Recorded Confirmed Type estradiol 1 mg-progesterone 100 mg 1 cap PO QPM 09/10/20 12/30/22 History capsule (Bijuva) rosuvastatin 10 mg tablet 10 mg PO DAILY 09/10/20 12/30/22 History aripiprazole 2 mg tablet 2 mg PO DAILY #90 tabs 06/03/22 12/30/22 Rx duloxetine 60 mg capsule,delayed 120 mg PO DAILY #180 caps 06/03/22 12/30/22 Rx release fluoxetine 40 mg capsule 160 mg PO DAILY #360 caps 06/03/22 12/30/22 Rx telmisartan 20 mg tablet 20 mg PO DAILY 09/20/22 12/30/22 History modafinil 200 mg tablet 400 mg PO DAILY #180 tabs 11/09/22 12/30/22 Rx lamotrigine 200 mg tablet 200 mg PO BID #60 tabs 11/14/22 12/30/22 Rx (Lamictal) magnesium 100 mg capsule 400 mg PO QPM 12/30/22 12/30/22 History Allergies Allergy/AdvReac Type Severity Reaction Status Date / Time No Known Drug Allergies Allergy Verified 12/30/22 10:41 Exam Vital Signs (past 8 hours): - 12/30/22 11:04 Temperature 98.9 F Pulse Rate 65 Respiratory Rate 16 Blood Pressure 123/75 Pulse Oximetry 100 Oxygen Delivery Method Room Air Oxygen Delivery Method Room Air Narrative Exam Narrative: HEENT: No thyromegaly, no anterior cervical or supraclavicular lymphadenopathy. Lungs:Clear to auscultation bilaterally, no wheezes. Cardiovascular: Regular rate and rhythm, no murmurs, rubs, or gallops. Abdomen: No scars. No hepatosplenomegaly. No masses palpable. External genitalia: Normal Vagina: Third-degree cystocele, third-degree rectocele Cervix: Normal Bimanual exam: 6 Week size uterus. Mobile. No adnexal masses or tenderness Extremities: No edema Objective Labs Labs: Laboratory Results - last 24 hr 12/30/22 10:30 SARS-CoV-2 (PCR) Negative Assessment & Plan Assessment & Plan narrative: Assessment: 57-year-old 4 para 2 with a symptomatic cystocele and rectocele Plan: Anterior and posterior repair The risks, benefits, and alternatives to the procedure were explained to the patient. The risks including bleeding, infection, injury to the bladder, urethra, or rectum. Understands these risks and agrees to proceed. A full par Q was held and consent form was signed. Time Spent With Patient Time with patient: less than 30 minutes Critical Care time: I spent a total of [] minutes of critical care time on this patient's care today; this time is exclusive of procedural time.
--- NOTE | 2022-12-30 12:15 | PM.PREOP ---
Pre-operative Note COVID-19 Criteria for continued procedure: Non-surgical alternatives not available or appropriate per current SOC Interval Note History & Physical reviewed/Exam performed by Physician: Yes Changes to H&P: No H&P completed within 30 days and has changed as indicated here:: 12/30/22
[2022-12-30] MEDS: CEFAZOLIN 2 GM/100 ML PREMIX 100 ML IV (12:20)
--- NOTE | 2022-12-30 12:33 | SUR.OPER ---
Lithotomy on padded OR bed, head on pillow, arms secured on padded arm boards at <90 degrees abduction. Legs secured in padded yellow fins stirrups.
[2022-12-30] MEDS: BUPIVACAINE 0.25% (PF) VIAL 5 ML SUBCUT (12:48)
--- NOTE | 2022-12-30 14:17 | PM.GYNOP.1 ---
Operative Date/Time/Diagnoses Date of procedure: 12/30/22 Time of procedure: 14:18 Pre-op diagnosis: Symptomatic cystocele and rectocele Post-op diagnosis: same Procedure & Clinicians Procedure: Procedures Operation Date: 12/30/22 11:45 Actual Procedure Side Surgeon p Anterior/Posterior Repair Tory Newton MD Indications: Symptomatic cystocele and rectocele Surgeon: Tory Newton Obstetric Anaesthetist: Georgina Kelly Anesthesia Type: General and Local Operative Notes Findings: Third-degree cystocele Third-degree rectus Enlarged genital hiatus Closure Type: primary Specimen(s): none Applied: catheter (To continuous drainage) and other (Vaginal packing in place) Estimated blood loss (mL): 75 Blood products transfused: none Procedure in detail: A weighted speculum was placed into the vagina. Two narrow Allis clamps were placed at the apex of the cystocele. 6 mL of quarter percent Marcaine with epinephrine were injected and an incision was made with a #10 blade between the 2 Allis clamps. Wide Allis clamps were placed on the midline of the cystocele approximately 6. The mucosa was undermined using the Metzenbaum scissors and the mucosa incised in the midline moving the wide Allis clamps to the edges of the mucosa. The mucosa was dissected off the underlying fascia using an open moistened Ray-Clifford and a #10 blade. The fascia was reapproximated with 0 Vicryl with a series of horizontal mattress sutures. The excess vaginal mucosa was excised. The mucosa was closed using simple interrupted sutures with 2-0 Vicryl including the underlying fascia to close the space. The weighted speculum was removed from the vagina. Allis clamps were placed at the mucocutaneous junction at the introitus. 6 mL of half percent Marcaine with epinephrine were injected. An incision was made with a #10 blade between the 2 Allis clamps, and a triangular piece of skin and underlying subcutaneous tissue were removed. 6 Allis clamps were placed in the midline of the rectocele. 10 mL of half percent Marcaine with epinephrine were injected submucosally on either side of the midline. The mucosa was undermined using the Metzenbaum scissors and the mucosa incised in the midline, moving the wide Allis clamps to the mucosal edges. The underlying fascia was dissected off of th mucosa using an open moistened Ray-Clifford and a #10 blade. The fascia was reapproximated using 0 Vicryl with a series of horizontal mattress sutures. The excess vaginal mucosa was excised. The mucosa was closed using a series of simple interrupted sutures with 2-0 Vicryl including the underlying fascia to close the space. On the perineum 0 Vicryl was used to reapproximate the levator muscle. The subcutaneous layer was closed with 2-0 Vicryl. The skin was closed with 3-0 chromic in a subcuticular fashion. Hemostasis was achieved. A Betadine moistened vaginal pack was placed into the vagina. A rectal exam was done and there were no sutures palpable in the rectum. The urine was clear. Sponge, lap, and instrument counts were correct x-2. The patient tolerated the procedure well, was taken to PACU in stable condition.m Complications: none Post-operative Condition: stable Disposition: PACU Plan for aftercare: To Acute Care after recovery
[2022-12-30] MEDS: OXYCODONE/ACETAMINOPHEN 5/325 TABLET 1 TAB PO (14:35)
[2022-12-30] MEDS: ONDANSETRON 4 MG/2 ML INJ IV (14:36)
[2022-12-30] MEDS: KETOROLAC 30 MG/ML VIAL IV ×2 (15:54→21:06)
[2022-12-30] MEDS: MAGNESIUM OXIDE 400 MG TABLET PO (16:06)
[2022-12-30] MEDS: DOCUSATE 100 MG CAPSULE 200 MG PO ×2 (16:06→21:04)
[2022-12-30] MEDS: PROGESTERONE PO (18:00)
[2022-12-30] MEDS: ESTRADIOL PO (18:00)
[2022-12-30] MEDS: lamoTRIgine 100 MG TABLET 200 MG PO (18:16)
--- NOTE | 2022-12-30 18:39 | PC.NURSE ---
Pt arrived from PACU at 1505 this afternoon. She is A&Ox3, VSS, afebrile on RA. She denies n/v and reports pain to vaginal region is tolerable and mild. DIEGO draining adequate clear yellow urine. Minimal spotting to peripad. IVF LR running at 100 ml/hr. She is able to sit up in chair this evening and tolerated this well. Continuous monitoring. Endorsed to oncoming RN to remove vaginal packing and d/c diego catheter at 0600 per MD communication orders.
[2022-12-30] MEDS: ATORVASTATIN 20 MG TABLET PO (21:04)
[2022-12-31 02:00] VITALS: BP 111/60; PULSE 62; RESP 17; TEMP 36.3; O2SAT 96
[2022-12-31] MEDS: LACTATED RINGERS 1,000 ML 100 ML IV (02:05)
[2022-12-31] MEDS: KETOROLAC 30 MG/ML VIAL IV ×2 (02:54→08:45)
[2022-12-31 06:16] LABS: Add Manual Diff / Slide Review NO; Basophils Absolute Auto 0 /uL (0-100); Basophils Percent Auto 0.3 % (0-2); Eosinophils Absolute Auto 100 /uL (0-450); Eosinophils Percent Auto 1.4 % (2-4); Hematocrit 31.7 % (36-46); Hemoglobin 10.6 g/dL (12.0-16.0); Lymphocytes Absolute Auto 1300 /uL (1100-4500); Lymphocytes Percent Auto 17.9 % (25-40); Mean Corpuscular HGB Conc 33.5 % (30-36); Mean Corpuscular Hemoglobin 30.2 PG (26-34); Mean Corpuscular Volume 89.9 fL (80-100); Monocytes Absolute Auto 700 /uL (0-900); Monocytes Percent Auto 8.9 % (3-14); Neutrophils Absolute Auto 5400 /uL (1500-7000); Neutrophils Percent Auto 71.5 % (50-75); Platelet Count 173 X10^3/uL (150-400); Red Blood Cell Count 3.53 X10^6/uL (4.0-5.2); Red Cell Distribution Width 13.4 % (11.6-14.8); White Blood Cell Count 7.5 X10^3/uL (4.5-11.0)
[2022-12-31] MEDS: lamoTRIgine 100 MG TABLET 200 MG PO (06:21)
[2022-12-31 06:37] VITALS: BP 107/54; PULSE 63; RESP 18; TEMP 36.1; O2SAT 95
--- NOTE | 2022-12-31 06:37 | PC.NURSE ---
0600 Chaudhry catheter discontinued after the packing was removed, no bleeding noted & tolerated procedure well. Pericare done & wearing pad & mesh underwear. Denies pain all shift, will continue plan of care & monitor.
[2022-12-31] MEDS: DULOXETINE 60 MG 2 EACH PO (09:33)
[2022-12-31] MEDS: FLUOXETINE 40 MG 4 EACH PO (09:34)
[2022-12-31] MEDS: ARIPIPRAZOLE 2 MG 1 EACH PO (09:34)
[2022-12-31] MEDS: MODAFINIL 200 MG 400 EACH PO (09:34)
[2022-12-31] MEDS: DOCUSATE 100 MG CAPSULE 200 MG PO (09:41)
[2022-12-31 09:47] VITALS: BP 106/58; PULSE 67
[2022-12-31 10:02] VITALS: BP 111/59; PULSE 73; RESP 16; TEMP 37.1; O2SAT 97
--- NOTE | 2022-12-31 10:36 | CM.DANOTE ---
Discharge Planning/Care Management CM Discharge Assessment Start: 12/31/22 10:31 Freq: Status: Active Protocol: Document 12/31/22 10:33 ROSARIO (Rec: 12/31/22 10:36 ROSARIO [id number]) Discharge Planning Assessment Assigned Counter Stitcher JESSICA Romo DPOA/Assigned Designee Name David Galindo, spouse Contact Information [phone] Advance Directives? Yes Advance Directives on File Yes History Provided By Patient,Medical Record Prior Living Arrangements House Household Members spouse Type of transporation used prior to Drives own vehicle admit Willing to Return to Facility? No Independent with ADL's Yes Is patient alert and oriented? Yes Barriers to Discharge No Comment Patient is s/p p Anterior/ Posterior Repair cystocele and rectocele by Dr Newton and has planned to return home w/ spouse when medically cleared for this plan. Do not anticipate any DC needs from this CM team however will plan to follow closely in case any arise Discharge Plan Home Transportation Arrangement Spouse Referrals Initiated None needed
--- NOTE | 2022-12-31 14:04 | PC.NURSE ---
Pt is A&Ox3, VSS (slightly soft BP's 100's/50's) afebrile, on RA. She reports pain 3/10 well managed with toradol this a.m. She is ambulatory this a.m. and tolerating breakfast well. After Chaudhry dc'd at 0600 a.m. and vaginal packing she is encouraged to void at 0900. Pre void scan was 265ml and patient up to bathroom voiding 400 cc. notified PVR-3ml. She is cleared for discharge and escorted by w/ch to private vehicle with this a.m. at approximately 1315 this afternoon.
[2023-01-03 16:08] LABS: Lamotrigine Lamictal 6.4 ug/mL (2.0-20.0)
== END 2022-12-31 13:15 | disposition home or self-care (01) ==
LOC: OR 10:07 → AC 15:12
PROVIDERS: PCP Physician Assistant; Referring Provider Obstetrics & Gynecology; Visit Provider Obstetrics & Gynecology
PROC: (CPT 57260; principal; 2022-12-30 11:45)
DX: N81.10 Cystocele, unspecified (principal); N81.6 Rectocele; Z20.822 Contact with and (suspected) exposure to COVID-19
CPT/HCPCS: 57260; 36415; 80175; 85025; 87635; C9803; J0690; J1100; J1885; J2250; J2405; J2704; J3010; J3490

== ENCOUNTER 2023-02-19 10:58 | Emergency (ER) | payer OTHER, SELFPAY ==
[2022-12-30 15:16] VITALS: BMI 24.0
[2023-02-19 11:21] VITALS: BP 119/59; PULSE 80; RESP 18; TEMP 36.6; O2SAT 100; BMI 24.0
[2023-02-19 12:29] LABS: Add Manual Diff / Slide Review NO; Basophils Absolute Auto 0 /uL (0-100); Basophils Percent Auto 0.7 % (0-2); Eosinophils Absolute Auto 100 /uL (0-450); Eosinophils Percent Auto 1.3 % (2-4); Hematocrit 36.8 % (36-46); Hemoglobin 12.4 g/dL (12.0-16.0); Lymphocytes Absolute Auto 1000 /uL (1100-4500); Lymphocytes Percent Auto 16.9 % (25-40); Mean Corpuscular HGB Conc 33.6 % (30-36); Mean Corpuscular Hemoglobin 30.3 PG (26-34); Mean Corpuscular Volume 90.1 fL (80-100); Monocytes Absolute Auto 500 /uL (0-900); Monocytes Percent Auto 9.1 % (3-14); Neutrophils Absolute Auto 4200 /uL (1500-7000); Platelet Count 216 X10^3/uL (150-400); Red Blood Cell Count 4.08 X10^6/uL (4.0-5.2); Red Cell Distribution Width 13.9 % (11.6-14.8); White Blood Cell Count 5.9 X10^3/uL (4.5-11.0)
[2023-02-19 12:30] LABS: Alanine Aminotransferase 98 IU/L (<35); Albumin 4.4 g/dL (3.5-5.0); Albumin Globulin Ratio 1.7 (1.0-2.8); Alkaline Phosphatase 94 U/L (38-126); Aspartate Aminotransferase 68 IU/L (14-36); BUN Creatinine Ratio 23.5 (6-22); Bilirubin Total 0.2 mg/dL (0.2-1.3); Blood Urea Nitrogen 19 mg/dL (7-17); Calcium 9.3 mg/dL (8.4-10.2); Carbon Dioxide 31 mmol/L (22-32); Chloride 100 mmol/L (98-107); Estimated Glomerular Filt Rate > 60 mL/min (>60); Globulin 2.6 g/dL (1.7-4.1); Glucose 80 mg/dL (70-100); HEMOLYSIS < 15 (0-50); Potassium 4.1 mmol/L (3.4-5.1); Sodium 137 mmol/L (137-145)
[2023-02-19 12:47] LABS: Prolactin 15.8 ng/mL (3.0-18.6)
--- NOTE | 2023-02-19 14:57 | ED.SEIZURE ---
HPI - Seizure <Padmini Yves Castillo REINSPECTOR - Last Filed: 02/19/23 17:15> General Chief Complaint: Seizure Stated Complaint: SEIZURE AT 8:30 HAVING EVERY 2 WEEKS Time Seen by Provider: 02/19/23 14:41 Source: patient Mode of arrival: Family Vehicle Limitations: no limitations History of Present Illness HPI Narrative: This is a 58-year-old female, nonsmoker with history of seizures and is on lamotrigine who presents for evaluation after what she thinks is another seizure today. She states that 2 weeks ago she had seizure-like activity and her lamotrigine was increased and states that this happened 2 weeks prior to that. She states she is had a seizure disorder since 2001 and over the last month her lamotrigine has gone from 400-500 mg twice a day. She states that she had her level recently drawn as she has been low in the past and it was increased because she had reported seizure-like activity on those occasions. She denies dizziness, vision changes, lightheadedness, states that her postictal symptoms have mostly resolved over the last few hours while she was waiting. She denies any recent fever chills, denies any chest pain or shortness of breath, has a recent history of bladder sling procedure with Dr. Newton on 02/09/2023. Denies any complications. She is established with Neurology at [facility] (Dr. Houston). Patient has follow-up scheduled with Dr. Houston in the upcoming weeks. She had an brain MRI on 12/22/2022 which was normal without cause seizures identified. She denies incontinence, her lamotrigine level on 12/31/2022 was 6.4, this was status post to increases of her lamotrigine. She states that she is been taking her medication as prescribed and has not missed any doses. Denies any headache, fever, neck pain or vision changes. Related Data Home Medications Medication Instructions Recorded Confirmed rosuvastatin 10 mg tablet 10 mg PO DAILY 09/10/20 02/22/23 telmisartan 20 mg tablet 20 mg PO DAILY 09/20/22 02/22/23 magnesium 100 mg capsule 400 mg PO QPM 12/30/22 02/22/23 bimatoprost 0.03 % drops with 1 drp topical DAILY 01/12/23 02/22/23 applicator, eyelash base fish [id number] C-vit E 2,000 g PO 01/12/23 02/22/23 mg-650 mg-12 mg/2.5 g emulsion packt guaifenesin 1,200 mg tablet, 1,200 mg PO DAILY Congestion 01/12/23 02/22/23 extended release 12 hr Previous Rx's Medication Instructions Recorded aripiprazole 2 mg tablet 2 mg PO DAILY #90 tabs 06/03/22 fluoxetine 40 mg capsule 160 mg PO DAILY #360 caps 06/03/22 modafinil 200 mg tablet 400 mg PO DAILY #180 tabs 11/09/22 lamotrigine 200 mg tablet 200 mg PO BID #60 tabs 11/14/22 (Lamictal) estradiol 0.01% (0.1 mg/gram) 0.5 g vaginal 2XW #42.5 grams 02/09/23 vaginal cream (Estrace) duloxetine 30 mg capsule,delayed 30 mg PO DAILY #5 caps 02/14/23 release lamotrigine 200 mg tablet 300 mg PO BID 30 days #90 tabs 02/19/23 (Lamictal) estradiol 1 mg-progesterone 100 mg 1 cap PO QPM #90 caps 02/22/23 capsule (Bijuva) desvenlafaxine succinate 50 mg 50 mg PO DAILY #60 tabs 03/03/23 tablet,extended release 24 hr Allergies Allergy/AdvReac Type Severity Reaction Status Date / Time No Known Drug Allergies Allergy Verified 02/22/23 12:57 Review of Systems <GURVINDER Medina - Last Filed: 02/19/23 17:15> Review of Systems ROS Unobtainable: All systems reviewed & are unremarkable except as noted in HPI and below Patient History <GURVINDER Medina - Last Filed: 02/19/23 17:15> Medical History Acne (~1979) Anxiety (~1985) Carpal tunnel syndrome (~1994) Cervical myelopathy with cervical radiculopathy Chicken pox COVID-19 virus infection (11/05/22) Depression (~1985) Eczema (~1975) Facet arthropathy, lumbar Hyper reflexia Lumbar radiculopathy Lumbosacral radiculopathy at L4 MMN (multifocal motor neuropathy) Ovarian cyst Restless leg syndrome (~2009) Rheumatoid arthritis Scoliosis Spondylolisthesis at L4-L5 level Vaginal delivery Surgical History Anesthesia History of carpal tunnel release (~09/2021) Family History Father History of heart disease Hypertension Hyperlipidemia Mother Mental health problem Brother Mental health problem Social History household members: spouse Smoking Status: Never smoker alcohol intake: current Smoking Status: Never smoker alcohol intake frequency: holidays/special occasions only Substance Use Type: does not use Exam <GURVINDER Median - Last Filed: 02/19/23 17:15> Narrative Exam Narrative: Reviewed vitals signs and nursing notes. General: Pleasant, resting on gurney in no acute distress, well groomed, afebrile, talkative, HEENT: symmetrical facial expressions, moist mucous membranes, neck is supple, EOMI, PERRLA bilaterally CV: regular rate and rhythm, warm extremities Respiratory: normal work of breathing, without tachypnea or hypoxia. GI: abdomen soft, nondistended, without CVA tenderness bilaterally. MSK: moves all extremities, no weakness, normal tone, ambulatory without deficit, without any focal weakness or deficits Skin: brisk capillary refill, without rash or wound Neuro: clear speech and normal cognition, A&O x3, GCS 15, no focal motor or sensation deficits Initial Vital Signs Initial Vital Signs: Vital Signs Temperature 97.8 F 02/19/23 11:21 Pulse Rate 80 02/19/23 11:21 Respiratory Rate 18 02/19/23 11:21 Blood Pressure 119/59 L 02/19/23 11:21 Pulse Oximetry 100 02/19/23 11:21 Oxygen Delivery Method Room Air 02/19/23 11:21 <Kobi Hines MD - Last Filed: 03/06/23 22:22> Initial Vital Signs Initial Vital Signs: Vital Signs Temperature 97.8 F 02/19/23 11:21 Pulse Rate 80 02/19/23 11:21 Respiratory Rate 18 02/19/23 11:21 Blood Pressure 119/59 L 02/19/23 11:21 Pulse Oximetry 100 02/19/23 11:21 Oxygen Delivery Method Room Air 02/19/23 11:21 Course <GURVINDER Medina - Last Filed: 02/19/23 17:15> Orders Ordered: ED Orders 02/19/23 12:07 Complete Blood Count AUTO DIFF Stat Comprehensive Metabolic Panel Stat Lamotrigine Lamictal Stat Magnesium Stat Prolactin Stat 02/19/23 12:18 EKG-12 Lead Stat 02/19/23 15:26 Urine Drug Screen, Rapid Stat Urine Microscopic Stat Vital Signs Vital signs: Vital Signs - 8 hr 02/19/23 11:21 02/19/23 15:53 Temperature 97.8 F Pulse Rate 80 70 Respiratory Rate 18 16 Blood Pressure 119/59 L 120/70 Pulse Oximetry 100 99 Oxygen Delivery Method Room Air Room Air <Kobi Hines MD - Last Filed: 03/06/23 22:22> Orders Ordered: ED Orders 02/19/23 12:07 Complete Blood Count AUTO DIFF Stat Comprehensive Metabolic Panel Stat Lamotrigine Lamictal Stat Magnesium Stat Prolactin Stat 02/19/23 12:18 EKG-12 Lead Stat 02/19/23 15:26 Urine Drug Screen, Rapid Stat Urine Microscopic Stat Vital Signs Vital signs: Vital Signs - 8 hr 02/19/23 11:21 02/19/23 15:53 Temperature 97.8 F Pulse Rate 80 70 Respiratory Rate 18 16 Blood Pressure 119/59 L 120/70 Pulse Oximetry 100 99 Oxygen Delivery Method Room Air Room Air MDM - Seizure <GURVINDER Medina - Last Filed: 02/19/23 17:15> Lab Data 02/19/23 12:07 02/19/23 12:07 Labs: Lab Results 02/19/23 02/19/23 02/19/23 Range/Units 12:07 12:07 12:07 WBC 5.9 (4.5-11.0) X10^3/uL RBC 4.08 (4.0-5.2) X10^6/uL Hgb 12.4 (12.0-16.0) g/dL Hct 36.8 (36-46) % MCV 90.1 (80-100) fL MCH 30.3 (26-34) PG MCHC 33.6 (30-36) % RDW 13.9 (11.6-14.8) % Plt Count 216 (150-400) X10^3/uL Neut % (Auto) 72.0 (50-75) % Lymph % (Auto) 16.9 L (25-40) % [place] % (Auto) 9.1 (3-14) % Eos % (Auto) 1.3 L (2-4) % Baso % (Auto) 0.7 (0-2) % Neut # (Auto) 4200 (3800-9333) /uL Lymph # (Auto) 1000 L (2503-2640) /uL [place] # (Auto) 500 (0-900) /uL Eos # (Auto) 100 (0-450) /uL Baso # (Auto) 0 (0-100) /uL Sodium 137 (137-145) mmol/L Potassium 4.1 (3.4-5.1) mmol/L Chloride 100 (98-107) mmol/L Carbon Dioxide 31 (22-32) mmol/L BUN 19 H (7-17) mg/dL Creatinine 0.81 (0.52-1.04) mg/dL Estimated GFR > 60 (>60) mL/min BUN/Creatinine Ratio 23.5 H (6-22) Glucose 80 (70-100) mg/dL Calcium 9.3 (8.4-10.2) mg/dL Magnesium (1.6-2.3) mg/dL Total Bilirubin 0.2 (0.2-1.3) mg/dL AST 68 H (14-36) IU/L ALT 98 H (<35) IU/L Alkaline Phosphatase 94 (38-126) U/L Total Protein 7.0 (6.3-8.2) g/dL Albumin 4.4 (3.5-5.0) g/dL Globulin 2.6 (1.7-4.1) g/dL Albumin/Globulin Ratio 1.7 (1.0-2.8) Prolactin 15.8 (3.0-18.6) ng/mL Urine RBC (0-5/HPF) Urine WBC (0-5/HPF) Ur Squamous Epith Cells (0-5/HPF) Amorphous Sediment Urine Bacteria (None) Ur Culture Indicated? U Opiates 300ng/mL cut (Negative) Ur Oxycodone Screen (Negative) Urine Methadone Screen (Negative) Ur Barbiturates Screen (Negative) Lamotrigine 6.7 (2.0-20.0) ug/mL U Tricyclic Antidepress (Negative) Ur Phencyclidine Scrn (Negative) Ur Amphetamines Screen (Negative) U Methamphetamines Scrn (Negative) Ur MDMA Scrn (Ecstasy) (Negative) U Benzodiazepines Scrn (Negative) Urine Cocaine Screen (Negative) U Marijuana (THC) Screen (Negative) 02/19/23 02/19/23 02/19/23 Range/Units 12:07 15:26 15:26 WBC (4.5-11.0) X10^3/uL RBC (4.0-5.2) X10^6/uL Hgb (12.0-16.0) g/dL Hct (36-46) % MCV (80-100) fL MCH (26-34) PG MCHC (30-36) % RDW (11.6-14.8) % Plt Count (150-400) X10^3/uL Neut % (Auto) (50-75) % Lymph % (Auto) (25-40) % [place] % (Auto) (3-14) % Eos % (Auto) (2-4) % Baso % (Auto) (0-2) % Neut # (Auto) (3070-6955) /uL Lymph # (Auto) (8169-4263) /uL [place] # (Auto) (0-900) /uL Eos # (Auto) (0-450) /uL Baso # (Auto) (0-100) /uL Sodium (137-145) mmol/L Potassium (3.4-5.1) mmol/L Chloride (98-107) mmol/L Carbon Dioxide (22-32) mmol/L BUN (7-17) mg/dL Creatinine (0.52-1.04) mg/dL Estimated GFR (>60) mL/min BUN/Creatinine Ratio (6-22) Glucose (70-100) mg/dL Calcium (8.4-10.2) mg/dL Magnesium 2.3 (1.6-2.3) mg/dL Total Bilirubin (0.2-1.3) mg/dL AST (14-36) IU/L ALT (<35) IU/L Alkaline Phosphatase (38-126) U/L Total Protein (6.3-8.2) g/dL Albumin (3.5-5.0) g/dL Globulin (1.7-4.1) g/dL Albumin/Globulin Ratio (1.0-2.8) Prolactin (3.0-18.6) ng/mL Urine RBC None seen (0-5/HPF) Urine WBC None seen (0-5/HPF) Ur Squamous Epith Cells 5-10 /hpf H (0-5/HPF) Amorphous Sediment 1+ Urine Bacteria None seen (None) Ur Culture Indicated? Cult not indicated U Opiates 300ng/mL cut Negative (Negative) Ur Oxycodone Screen Negative (Negative) Urine Methadone Screen Negative (Negative) Ur Barbiturates Screen Negative (Negative) Lamotrigine (2.0-20.0) ug/mL U Tricyclic Antidepress Negative (Negative) Ur Phencyclidine Scrn Negative (Negative) Ur Amphetamines Screen Negative (Negative) U Methamphetamines Scrn Negative (Negative) Ur MDMA Scrn (Ecstasy) Negative (Negative) U Benzodiazepines Scrn Positive H (Negative) Urine Cocaine Screen Negative (Negative) U Marijuana (THC) Screen Negative (Negative) Urine Dip Bedside Urine Glucose Negative Bedside Urine Bilirubin - Negative Bedside Urine Ketone - Negative Urine Specific Glady 1.010 Bedside Urine Occult Blood - Negative Bedside Urine pH 6.0 Bedside Urine Protein - Negative Bedside Urine Urobilinogen - Negative Bedside Urine Nitrite - Negative Bedside Urine Leukocytes - Negative Esterase ECG Data Interpretation: EKG independently reviewed by myself at 1220 reveals normal sinus rhythm at [69] bpm with regular axis and intervals. No STEMI, ST segment changes, arrhythmia, or acute ischemic changes. MDM Narrative Medical decision making narrative: Chief Complaint: Possible seizure-like activity Independent historian: Patient Multiple etiologies for patient's symptoms considered including, but not limited to: Seizure, aura, partial seizure, acute bacterial infection including cystitis/urinary tract infection, dehydration, electrolyte derangement/abnormality, subtherapeutic lamotrigine level, I have independently reviewed the patient's vital signs and nursing notes as well as prior records if available. Pertinent records include: My EKG interpretation: Normal sinus rhythm without ST changes, rate of 69 My interpretation of lab studies: CBC is unremarkable without anemia or leukocytosis, chemistry is also unremarkable, magnesium level is 2.3, total bilirubin is 0.2, no significant elevation of liver enzymes My interpretation of imaging: CT imaging ruled out has patient has not had any new changes, recent brain MRI, denies headache, weakness, altered mentation and [place] head CT rules out head CT Course of care: Urine dip is negative for abnormality, urine microscopy with no RBCs or WBCs, only epithelial cells, urine drug screen positive only for benzodiazepines. Prolactin level is normal. Lamotrigine level is still pending, patient requests to increased by 50 b.i.d., long discussion regarding risks versus benefit of increasing, most recent lamotrigine level 6.4, before that it was 5. She understands to start this medication at 300 b.i.d. only if her lamotrigine level is less than 10. She will follow-up with Dr. Houston at her upcoming appointment. He has been CC on this chart. Discussion about adverse side effects of this medication and what to return to the emergency department for. Encouraged to avoid alcohol and other sedating agents. Social considerations that may affect disposition: none Questions are addressed and there is agreement with the plan and for follow-up. Patient is appropriate for outpatient management. <Kobi Hines MD - Last Filed: 03/06/23 22:22> Lab Data Labs: Lab Results 02/19/23 02/19/23 02/19/23 Range/Units 12:07 12:07 12:07 WBC 5.9 (4.5-11.0) X10^3/uL RBC 4.08 (4.0-5.2) X10^6/uL Hgb 12.4 (12.0-16.0) g/dL Hct 36.8 (36-46) % MCV 90.1 (80-100) fL MCH 30.3 (26-34) PG MCHC 33.6 (30-36) % RDW 13.9 (11.6-14.8) % Plt Count 216 (150-400) X10^3/uL Neut % (Auto) 72.0 (50-75) % Lymph % (Auto) 16.9 L (25-40) % [place] % (Auto) 9.1 (3-14) % Eos % (Auto) 1.3 L (2-4) % Baso % (Auto) 0.7 (0-2) % Neut # (Auto) 4200 (8114-2456) /uL Lymph # (Auto) 1000 L (7323-2287) /uL [place] # (Auto) 500 (0-900) /uL Eos # (Auto) 100 (0-450) /uL Baso # (Auto) 0 (0-100) /uL Sodium 137 (137-145) mmol/L Potassium 4.1 (3.4-5.1) mmol/L Chloride 100 (98-107) mmol/L Carbon Dioxide 31 (22-32) mmol/L BUN 19 H (7-17) mg/dL Creatinine 0.81 (0.52-1.04) mg/dL Estimated GFR > 60 (>60) mL/min BUN/Creatinine Ratio 23.5 H (6-22) Glucose 80 (70-100) mg/dL Calcium 9.3 (8.4-10.2) mg/dL Magnesium (1.6-2.3) mg/dL Total Bilirubin 0.2 (0.2-1.3) mg/dL AST 68 H (14-36) IU/L ALT 98 H (<35) IU/L Alkaline Phosphatase 94 (38-126) U/L Total Protein 7.0 (6.3-8.2) g/dL Albumin 4.4 (3.5-5.0) g/dL Globulin 2.6 (1.7-4.1) g/dL Albumin/Globulin Ratio 1.7 (1.0-2.8) Prolactin 15.8 (3.0-18.6) ng/mL Urine RBC (0-5/HPF) Urine WBC (0-5/HPF) Ur Squamous Epith Cells (0-5/HPF) Amorphous Sediment Urine Bacteria (None) Ur Culture Indicated? U Opiates 300ng/mL cut (Negative) Ur Oxycodone Screen (Negative) Urine Methadone Screen (Negative) Ur Barbiturates Screen (Negative) Lamotrigine 6.7 (2.0-20.0) ug/mL U Tricyclic Antidepress (Negative) Ur Phencyclidine Scrn (Negative) Ur Amphetamines Screen (Negative) U Methamphetamines Scrn (Negative) Ur MDMA Scrn (Ecstasy) (Negative) U Benzodiazepines Scrn (Negative) Urine Cocaine Screen (Negative) U Marijuana (THC) Screen (Negative) 02/19/23 02/19/23 02/19/23 Range/Units 12:07 15:26 15:26 WBC (4.5-11.0) X10^3/uL RBC (4.0-5.2) X10^6/uL Hgb (12.0-16.0) g/dL Hct (36-46) % MCV (80-100) fL MCH (26-34) PG MCHC (30-36) % RDW (11.6-14.8) % Plt Count (150-400) X10^3/uL Neut % (Auto) (50-75) % Lymph % (Auto) (25-40) % [place] % (Auto) (3-14) % Eos % (Auto) (2-4) % Baso % (Auto) (0-2) % Neut # (Auto) (5422-4296) /uL Lymph # (Auto) (4900-5604) /uL [place] # (Auto) (0-900) /uL Eos # (Auto) (0-450) /uL Baso # (Auto) (0-100) /uL Sodium (137-145) mmol/L Potassium (3.4-5.1) mmol/L Chloride (98-107) mmol/L Carbon Dioxide (22-32) mmol/L BUN (7-17) mg/dL Creatinine (0.52-1.04) mg/dL Estimated GFR (>60) mL/min BUN/Creatinine Ratio (6-22) Glucose (70-100) mg/dL Calcium (8.4-10.2) mg/dL Magnesium 2.3 (1.6-2.3) mg/dL Total Bilirubin (0.2-1.3) mg/dL AST (14-36) IU/L ALT (<35) IU/L Alkaline Phosphatase (38-126) U/L Total Protein (6.3-8.2) g/dL Albumin (3.5-5.0) g/dL Globulin (1.7-4.1) g/dL Albumin/Globulin Ratio (1.0-2.8) Prolactin (3.0-18.6) ng/mL Urine RBC None seen (0-5/HPF) Urine WBC None seen (0-5/HPF) Ur Squamous Epith Cells 5-10 /hpf H (0-5/HPF) Amorphous Sediment 1+ Urine Bacteria None seen (None) Ur Culture Indicated? Cult not indicated U Opiates 300ng/mL cut Negative (Negative) Ur Oxycodone Screen Negative (Negative) Urine Methadone Screen Negative (Negative) Ur Barbiturates Screen Negative (Negative) Lamotrigine (2.0-20.0) ug/mL U Tricyclic Antidepress Negative (Negative) Ur Phencyclidine Scrn Negative (Negative) Ur Amphetamines Screen Negative (Negative) U Methamphetamines Scrn Negative (Negative) Ur MDMA Scrn (Ecstasy) Negative (Negative) U Benzodiazepines Scrn Positive H (Negative) Urine Cocaine Screen Negative (Negative) U Marijuana (THC) Screen Negative (Negative) Urine Dip Bedside Urine Glucose Negative Bedside Urine Bilirubin - Negative Bedside Urine Ketone - Negative Urine Specific Glady 1.010 Bedside Urine Occult Blood - Negative Bedside Urine pH 6.0 Bedside Urine Protein - Negative Bedside Urine Urobilinogen - Negative Bedside Urine Nitrite - Negative Bedside Urine Leukocytes - Negative Esterase Discharge Plan Departure Patient Disposition: Home Clinical Impression: Seizure Instructions: Seizure Disorder -- Adult Activity Restrictions/Additional Instructions: *You have been diagnosed with likely another seizure. Since the lamotrigine level is a send out, your last level was 6.4, this was mildly increased from the previous. I am willing to increase only by 50 since this value will not result for the next 2 days, the major side effects of increasing this medication include nausea, fatigue, drowsiness, and it may increase the affect of other medications. Please avoid alcohol as this can also cause respiratory depression. Please follow-up with Dr. Houston and log into the portal to check what your lamotrigine level is. Return to the emergency department for new or worsening symptoms, please increase your dose only by 50 morning and night. Please log into the portal to ensure that your lamotrigine level is less than 20 before starting this medication. I wish you the best and return for any new or concerning symptoms. *What to do: *Please continue to take your regular medications as directed. [x ] New medication prescriptions sent to your pharmacy: [[facility] ] [ ] New medication written as a paper prescription [ ] No new medications given *Please call and schedule follow up with your primary care provider in 2-3 days, at least for an update. Let them know you were seen in the Emergency Department for the above problem. We will electronically transmit a record of today's note if your PCP or specialist is in our system. *If you do not have a primary care provider please contact [phone] to establish care with one of the [facility] primary care providers. *Return to the Emergency Department for worsening symptoms, inability to keep liquids down, fever greater than 101F, chills, or other concerning symptom. Prescriptions: New lamotrigine [Lamictal] 200 mg tablet 300 mg PO BID 30 Days Qty: 90 0RF No Action rosuvastatin 10 mg tablet 10 mg PO DAILY aripiprazole 2 mg tablet 2 mg PO DAILY Qty: 90 3RF fluoxetine 40 mg capsule 160 mg PO DAILY Qty: 360 3RF duloxetine 30 mg capsule,delayed release(DR/EC) 30 mg PO DAILY Qty: 5 0RF modafinil 200 mg tablet 400 mg PO DAILY Qty: 180 3RF Bijuva 1-100 mg capsule 1 cap PO QPM Qty: 90 4RF desvenlafaxine succinate 50 mg tablet extended release 24 hr 50 mg PO DAILY Qty: 60 3RF estradiol [Estrace] 0.01 % (0.1 mg/gram) cream 0.5 g vaginal 2XW Qty: 42.5 3RF magnesium 100 mg Capsule 400 mg PO QPM lamotrigine [Lamictal] 200 mg tablet 200 mg PO BID Qty: 60 0RF telmisartan 20 mg tablet 20 mg PO DAILY guaifenesin 1,200 mg tablet extended release 12hr 1,200 mg PO DAILY bimatoprost 0.03 % drops with applicator 1 drp topical DAILY Patient Comments: PLACE 1 DROP ON APPLICATOR AND APPLY EVENLY ALONG BOTH OF THE UPP... (REFER TO PRESCRIPTION NOTES). fish [id number]-vit C-vit E 2,000-650-12 mg/2.5 gram emulsion in packet PO Referrals: Tigre Houston MD [Non-Staff] - Jenny Valencia PA-C [Primary Care Provider] - Stand Alone Forms: Patient Portal/API <Kobi Hines MD - Last Filed: 03/06/23 22:22> Cosign ED Attending Cosdennisature Attestation: I was immediately available in the department for consultation. This documentation has been reviewed and I agree with assessment and plan. Supervised by Kobi Hines MD
[2023-02-19 15:00] LABS: Magnesium 2.3 mg/dL (1.6-2.3)
[2023-02-19 15:41] LABS: UR Morphine/Opiate cutoff 300 Negative (Negative); Ur Creatinine Normal (Normal); Ur Specific Gravity Normal (Normal); Urine Amphetamines Negative (Negative); Urine Barbiturates Negative (Negative); Urine Benzodiazepines Positive (Negative); Urine Cocaine Negative (Negative); Urine MDMA Negative (Negative); Urine Methadone Negative (Negative); Urine Methamphetamines Negative (Negative); Urine Oxycodone Negative (Negative); Urine Phencyclidine Negative (Negative); Urine Tetrahydrocannabinol Negative (Negative); Urine Tricyclic Antidepressant Negative (Negative); Urine pH Normal (Normal)
[2023-02-19 15:44] LABS: Amorphous Sediment Urine 1+; Bacteria Urine None Seen; Culture Indicated Urine Cult Not Indicated; RBC Urine None Seen (0-5/HPF); Squamous Epithelial Cell Urine 5-10 /HPF (0-5/HPF); WBC Urine None Seen (0-5/HPF)
[2023-02-19 15:53] VITALS: BP 120/70; PULSE 70; RESP 16; O2SAT 99
[2023-02-22 12:08] LABS: Lamotrigine Lamictal 6.7 ug/mL (2.0-20.0)
== END 2023-02-19 15:57 | disposition home or self-care (01) ==
PROVIDERS: Emergency Medicine; Emergency Provider Nurse Practitioner Critical Care Medicine; PCP Physician Assistant
DX: G40.909 Epilepsy, unspecified, not intractable, without status epilepticus (principal)
CPT/HCPCS: 36415; 80053; 80175; 80305; 81003; 81015; 83735; 84146; 85025; 93005; 93010; 99283; 99284

== ENCOUNTER → 2023-06-20 12:59 | Outpatient (CLI) | payer OTHER, SELFPAY ==
[2022-12-30 15:16] VITALS: BMI 24.0
[2023-06-20 14:14] LABS: Alanine Aminotransferase 72 IU/L (<35); Albumin 3.9 g/dL (3.5-5.0); Albumin Globulin Ratio 1.6 (1.0-2.8); Alkaline Phosphatase 113 U/L (38-126); Aspartate Aminotransferase 56 IU/L (14-36); Bilirubin Total 0.3 mg/dL (0.2-1.3); Bilirubin Unconjugated 0.2 mg/dL (0.0-1.1); Globulin 2.5 g/dL (1.7-4.1); HEMOLYSIS < 15 (0-50); Total Protein 6.4 g/dL (6.3-8.2)
== END ==
PROVIDERS: PCP Physician Assistant; Referring Provider Physician Assistant; Visit Provider Physician Assistant
DX: R79.89 Other specified abnormal findings of blood chemistry (principal)
CPT/HCPCS: 36415; 80076

== ENCOUNTER → 2023-11-14 15:25 | Outpatient (CLI) | payer OTHER, SELFPAY ==
[2022-12-30 15:16] VITALS: BMI 24.0
--- NOTE | 2023-11-14 15:27 | DI.MG.S_ITS ---
BILATERAL DIGITAL SCREENING MAMMOGRAM 3D/2D WITH CAD: 11/14/2023 CLINICAL: Routine screening. Comparison is made to exams dated: 10/08/2022 mammogram, 10/06/2021 mammogram, and 09/10/2020 mammogram - [facility]. Both breasts are heterogeneously dense, which may obscure small masses (category c / 51-75% glandular tissue). Current study was also evaluated with a Computer Aided Detection (CAD) system. No significant masses, calcifications, or other findings are seen in either breast. There has been no significant interval change. IMPRESSION: NEGATIVE There is no mammographic evidence of malignancy. A 1 year screening mammogram is recommended. Based on the Tyrer Cuzick model (a risk assessment model) the patient's lifetime risk is 14.7% and her 10 year risk is 5.2%. According to the ACR, ACS, and NCCN guidelines, an annual breast MRI exam along with mammogram is recommended if the patient's lifetime risk is 20% or greater. This exam was interpreted at Station ID: [id number]. NOTE: For mammograms, a report in lay terms will be sent to the patient. Approximately 15% of breast malignancies will not be visualized mammographically. In the management of a palpable breast mass, a negative mammogram must not discourage biopsy of a clinically suspicious lesion. Electronically Signed By: Yovany roach/eugenio:11/15/2023 08:34:56 letter sent: Normal Exam ACR BI-RADS Category 1: Negative [id number]
== END ==
PROVIDERS: PCP Physician Assistant; Referring Provider Physician Assistant; Visit Provider Physician Assistant
DX: Z12.31 Encounter for screening mammogram for malignant neoplasm of breast (principal); R92.333 Mammographic heterogeneous density, bilateral breasts
CPT/HCPCS: 77063; 77067

== ENCOUNTER → 2024-04-16 08:17 | Outpatient (CLI) | payer OTHER, SELFPAY ==
[2022-12-30 15:16] VITALS: BMI 24.0
[2024-04-18 13:36] LABS: Lamotrigine Lamictal 9.3 ug/mL (2.0-20.0); Topiramate 2.3 ug/mL (2.0-25.0)
== END ==
PROVIDERS: PCP Physician Assistant; Referring Provider Psychiatry & Neurology Neurology; Visit Provider Psychiatry & Neurology Neurology
DX: G40.109 Localization-related (focal) (partial) symptomatic epilepsy and epileptic syndromes with simple partial seizures, not intractable, without status epilepticus (principal); R41.3 Other amnesia
CPT/HCPCS: 36415; 80175; 80201

== ENCOUNTER → 2024-07-09 10:22 | Outpatient (CLI) | payer OTHER, SELFPAY ==
[2022-12-30 15:16] VITALS: BMI 24.0
--- NOTE | 2024-07-09 10:23 | DI.RAD.S_ITS ---
PROCEDURE: XR LUMBAR SPINE MIN 4V INDICATIONS: BACK PAIN TECHNIQUE: 5 views of the lumbar spine were acquired, including bilateral oblique views. COMPARISON: [facility], , XR LUMBAR SPINE MIN 4V, 01/18/2022, 14:13. FINDINGS: Bones: 5 nonrib-bearing vertebrae are present. Grade 1 anterolisthesis of L4 on L5. Grade 1 retrolisthesis of L3 on L4. Moderate disc height loss at all levels. Facet arthrosis of L4 through S1. No vertebral body compression fractures. No suspicious bony lesions. Soft tissues: Overlying bowel gas pattern is normal. No suspicious soft tissue calcifications. Oblique images: No pars defects. IMPRESSION: Moderate, multilevel degenerative disc disease and lower lumbar facet arthrosis. Degenerative grade 1 listhesis, as above. Dictated by: Benny Finley M.D. on 07/09/2024 at 11:59 Approved by: Benny Finley M.D. on 07/09/2024 at 12:01
== END ==
PROVIDERS: PCP Physician Assistant; Referring Provider Physical Medicine & Rehabilitation; Visit Provider Physical Medicine & Rehabilitation
DX: M47.26 Other spondylosis with radiculopathy, lumbar region (principal); M47.27 Other spondylosis with radiculopathy, lumbosacral region; M51.16 Intervertebral disc disorders with radiculopathy, lumbar region; M51.17 Intervertebral disc disorders with radiculopathy, lumbosacral region; M43.16 Spondylolisthesis, lumbar region
CPT/HCPCS: 72110

== ENCOUNTER 2024-08-28 07:43 | Outpatient (CLI) | payer OTHER, SELFPAY ==
[2022-12-30 15:16] VITALS: BMI 24.0
[2024-08-28] VITALS (8 sets, daily range): BP systolic 125–149; BP diastolic 59–89; PULSE 58–66; RESP 16–20; TEMP 36.6; O2SAT 97–100
--- NOTE | 2024-08-28 08:45 | DI.RAD.S_ITS ---
PROCEDURE: PAIN L/S TRANSFORAMINAL INJECT INDICATIONS: Left L4-5 transforaminal PHAM COMPARISON: [facility], , PAIN L/S TRANSFORAMINAL INJECT, 02/23/2022, 8:30. FINDINGS: Fluoroscopic spot filming was performed to verify placement of spinal needles at the L4-L5 level(s), as labeled on the films. Appropriate location(s) of the needle tip(s) was confirmed by injection of iodinated contrast. IMPRESSION: L4-L5 injection, see operative note for full details Dictated by: Augustine Latham M.D. on 08/28/2024 at 13:52 Approved by: Augustine Latham M.D. on 08/28/2024 at 13:52
[2024-08-28] MEDS: MIDAZOLAM 2 MG/2 ML VIAL IV (09:20)
[2024-08-28] MEDS: DEXAMETHASONE 10 MG/ML VIAL INJ (09:27)
[2024-08-28] MEDS: BUPIVACAINE 0.25% (PF) VIAL 2 ML INJ (09:28)
[2024-08-28] MEDS: BETAMETHASONE 30 MG/5 ML MDV 12 MG INJ (09:29)
[2024-08-28] MEDS: iopamidoL 15 ML VIAL 3 ML INJ (09:29)
--- NOTE | 2024-08-28 09:41 | P.PCN_ITS ---
Date/Time/Diagnoses Date of procedure: 08/28/24 Time of procedure: 09:42 Pre-procedure diagnosis: 1. FORAMINAL STENOSIS WITH LE SYMPTOMS Post-procedure diagnosis: same Procedure Notes Procedure: 1. FLUOROSCOPICALLY GUIDED CONTRAST CONTROLLED TRANSFORAMINAL EPIDURAL STEROID INJECTION - LEFT L4/5 Indications: Alma is referred by SONU Valencia for treatment of Foraminal Stenosis with Left LE Symptoms Physician: Tomasz Magallon Total Fluoroscopy time (seconds): 9 Total sedation minutes: 15 Complications: none Procedure in detail & Post-procedure care: FINDINGS Foraminal Nerve Root Compression secondary to disc disease and facet hypertrophy DESCRIPTION OF PROCEDURE Following review of allergy and review of potential side effects and complications, including, but not necessarily limited to, infection, allergic reaction, local tissue breakdown, stroke, temporary or permanent nerve injury, paralysis, and possible , the patient indicated that the patient understood and agreed to proceed. An informed consent document was signed by the patient, witnessed by a nurse, and placed in the patient's chart. Additionally, other treatment options including medications, modalities, and physical therapy were reviewed with the patient. After review of previous anaesthesic history and IV conscious sedation the patient was deemed safe to proceed with today?s procedure with IV conscious sedation as ASA class II designation. Safety time-out was performed to confirm patient ID, procedure to be performed and site of procedure. IV sedation was accomplished with a combination of 2mg of Versed administered by the RN after DO order, titrated to patient comfort during the course of the procedure while the patient remained responsive to all verbal commands In the prone position following sterile prep and drape of the lumbar region, the left L4/5 posterior neuroforamen was identified fluoroscopically. The skin was anesthetized via a 25-gauge 1.5-inch needle with 1% lidocaine solution. At this point, a 25-gauge 3.5-inch spinal needle was atraumatically introduced and advanced under fluoroscopic guidance through the posterior left L4/5 neuroforamen to approximately the anterior aspect of the canal. Depth was confirmed on lateral view. Following negative aspiration, injection of approximately 1.5 cc of Isovue 200 under live fluoroscopy in the AP view confirmed excellent flow along the nerve root, into the epidural space without vascular or intrathecal uptake observed Radiological data, including multiple fluoroscopic views of the lumbosacral spine, reveal a spinal needle at the left L4/5 posterior neuroforamen. Subsequent views show flow of contrast material flowing superiorly and inferiorly along the nerve root confirming epidural flow. Subsequently, a test dose of 1.5 cc of 1% lidocaine solution was administered and patient was observed for two minutes for signs or symptoms of complications, including abdominal pain, shortness of breath, bilateral upper or lower extremity weakness, nausea and vomiting, prior to steroid injection. At this point, a total of 2cc or 10mg of dexamethasone and 6mg of betamethasone was injected without incident. The procedure tolerated the procedure well without signs or symptoms of complications prior to transfer to the recovery area continued monitoring without incident. The patient was then transferred to the recovery area where they were observed for an appropriate time after the injection. The patient reported a VAS score of 7 prior to the procedure and a post- procedure VAS of 0. POST OP INSTRUCTIONS The patient was provided a Pain Log to continue to record their response to the target-specific procedure prior to follow-up visit with their referring physician. Additionally, specific post-injection care instructions and a contact number to our office were provided if concerns arise regarding possible complications associated with the procedure are suspected.
== END 2024-08-28 09:53 | disposition home or self-care (01) ==
LOC: RAD 07:43
PROVIDERS: PCP Physician Assistant; Referring Provider Physical Medicine & Rehabilitation; Visit Provider Physical Medicine & Rehabilitation
DX: M48.061 Spinal stenosis, lumbar region without neurogenic claudication (principal); M51.16 Intervertebral disc disorders with radiculopathy, lumbar region; M47.26 Other spondylosis with radiculopathy, lumbar region
CPT/HCPCS: 64483; 99152; J0702; J1100; J2250; J3490

== ENCOUNTER → 2024-09-19 13:56 | Outpatient (CLI) | payer OTHER, SELFPAY ==
[2022-12-30 15:16] VITALS: BMI 24.0
[2024-09-19 15:08] LABS: Influenza A - CEPHEID Flu A NEGATIVE (NEGATIVE); Influenza B - CEPHEID Flu B NEGATIVE (NEGATIVE); Respiratory Syncytial Virus Negative (Negative)
[2024-09-19 15:18] LABS: COVID-19 CEPHEID 4-PLEX PCR Negative (Negative)
== END ==
PROVIDERS: PCP Physician Assistant; Visit Provider Physician Assistant
DX: R05.1 Acute cough (principal); J06.9 Acute upper respiratory infection, unspecified
CPT/HCPCS: 0241U

== ENCOUNTER → 2024-10-02 07:15 | Outpatient (CLI) | payer OTHER, SELFPAY ==
[2022-12-30 15:16] VITALS: BMI 24.0
[2024-10-02 07:59] LABS: Add Manual Diff / Slide Review NO; Basophils Absolute Auto 0 /uL (0-100); Basophils Percent Auto 0.7 % (0-2); Eosinophils Absolute Auto 300 /uL (0-450); Eosinophils Percent Auto 4.8 % (2-4); Hematocrit 36.2 % (36-46); Hemoglobin 12.1 g/dL (12.0-16.0); Lymphocytes Absolute Auto 1700 /uL (1100-4500); Lymphocytes Percent Auto 28.4 % (25-40); Mean Corpuscular HGB Conc 33.5 % (30-36); Mean Corpuscular Hemoglobin 30.4 PG (26-34); Mean Corpuscular Volume 90.6 fL (80-100); Monocytes Absolute Auto 400 /uL (0-900); Neutrophils Absolute Auto 3600 /uL (1500-7000); Neutrophils Percent Auto 59.1 % (50-75); Platelet Count 238 X10^3/uL (150-400); Red Blood Cell Count 3.99 X10^6/uL (4.0-5.2); Red Cell Distribution Width 13.2 % (11.6-14.8); White Blood Cell Count 6.1 X10^3/uL (4.5-11.0)
[2024-10-02 10:23] LABS: HEMOLYSIS < 15 (0-50); Iron 84 ug/dL (37-170)
[2024-10-02 10:37] LABS: Percent Iron Saturation 38 % (15-50); Total Iron Binding Capacity 219 ug/dL (265-497); Transferrin 206 mg/dL (206-381)
== END ==
PROVIDERS: PCP Physician Assistant; Referring Provider Nurse Practitioner; Visit Provider Nurse Practitioner
DX: E61.1 Iron deficiency (principal); G25.81 Restless legs syndrome
CPT/HCPCS: 36415; 83540; 83550; 85025

== ENCOUNTER → 2024-11-05 06:39 | Outpatient (CLI) | payer BC, SELFPAY ==
[2022-12-30 15:16] VITALS: BMI 24.0
[2024-11-05 08:39] LABS: Add Manual Diff / Slide Review NO; Basophils Absolute Auto 0 /uL (0-100); Basophils Percent Auto 0.6 % (0-2); Eosinophils Absolute Auto 300 /uL (0-450); Eosinophils Percent Auto 6.1 % (2-4); Hematocrit 37.6 % (36-46); Hemoglobin 12.5 g/dL (12.0-16.0); Lymphocytes Absolute Auto 1200 /uL (1100-4500); Lymphocytes Percent Auto 25.4 % (25-40); Mean Corpuscular HGB Conc 33.3 % (30-36); Mean Corpuscular Hemoglobin 30.4 PG (26-34); Mean Corpuscular Volume 91.4 fL (80-100); Monocytes Absolute Auto 400 /uL (0-900); Monocytes Percent Auto 8.8 % (3-14); Neutrophils Absolute Auto 2800 /uL (1500-7000); Neutrophils Percent Auto 59.1 % (50-75); Platelet Count 216 X10^3/uL (150-400); Red Blood Cell Count 4.11 X10^6/uL (4.0-5.2); Red Cell Distribution Width 13.8 % (11.6-14.8); White Blood Cell Count 4.8 X10^3/uL (4.5-11.0)
[2024-11-05 08:56] LABS: HEMOLYSIS < 15 (0-50); Iron 90 ug/dL (37-170)
[2024-11-05 08:59] LABS: Alanine Aminotransferase 23 IU/L (<35); Albumin 4.1 g/dL (3.5-5.0); Alkaline Phosphatase 104 U/L (38-126); Aspartate Aminotransferase 26 IU/L (14-36); BUN Creatinine Ratio 21.3 (6-22); Bilirubin Total 0.3 mg/dL (0.2-1.3); Blood Urea Nitrogen 16 mg/dL (7-17); Calcium 9.4 mg/dL (8.4-10.2); Carbon Dioxide 29 mmol/L (22-32); Chloride 95 mmol/L (98-107); Estimated Glomerular Filt Rate > 60 mL/min (>60); Globulin 2.1 g/dL (1.7-4.1); Glucose 93 mg/dL (70-100); HEMOLYSIS < 15 (0-50); Potassium 5.4 mmol/L (3.4-5.1); Sodium 129 mmol/L (137-145); Total Protein 6.2 g/dL (6.3-8.2)
[2024-11-05 09:06] LABS: Percent Iron Saturation 42 % (15-50); Total Iron Binding Capacity 216 ug/dL (265-497); Transferrin 218 mg/dL (206-381)
[2024-11-05 09:32] LABS: Ferritin 149 ng/mL (11-264)
== END ==
PROVIDERS: PCP Physician Assistant; Referring Provider Psychiatry & Neurology Neurology; Visit Provider Psychiatry & Neurology Neurology
DX: G40.109 Localization-related (focal) (partial) symptomatic epilepsy and epileptic syndromes with simple partial seizures, not intractable, without status epilepticus (principal); G25.81 Restless legs syndrome; E61.1 Iron deficiency
CPT/HCPCS: 36415; 80053; 80183; 82728; 83540; 83550; 85025

== ENCOUNTER → 2024-11-23 13:10 | Outpatient (CLI) | payer BC, SELFPAY ==
[2022-12-30 15:16] VITALS: BMI 24.0
[2024-11-23 13:40] LABS: Add Manual Diff / Slide Review NO; Basophils Absolute Auto 0 /uL (0-100); Basophils Percent Auto 0.3 % (0-2); Eosinophils Absolute Auto 100 /uL (0-450); Eosinophils Percent Auto 1.1 % (2-4); Hematocrit 37.5 % (36-46); Hemoglobin 12.8 g/dL (12.0-16.0); Lymphocytes Absolute Auto 1000 /uL (1100-4500); Lymphocytes Percent Auto 15.8 % (25-40); Mean Corpuscular HGB Conc 34.1 % (30-36); Mean Corpuscular Hemoglobin 30.6 PG (26-34); Mean Corpuscular Volume 89.8 fL (80-100); Monocytes Absolute Auto 500 /uL (0-900); Monocytes Percent Auto 7.7 % (3-14); Neutrophils Absolute Auto 4800 /uL (1500-7000); Neutrophils Percent Auto 75.1 % (50-75); Platelet Count 270 X10^3/uL (150-400); Red Blood Cell Count 4.17 X10^6/uL (4.0-5.2); Red Cell Distribution Width 13.8 % (11.6-14.8); White Blood Cell Count 6.4 X10^3/uL (4.5-11.0)
[2024-11-23 13:57] LABS: Alanine Aminotransferase 23 IU/L (<35); Albumin 4.7 g/dL (3.5-5.0); Albumin Globulin Ratio 2.2 (1.0-2.8); Alkaline Phosphatase 97 U/L (38-126); Aspartate Aminotransferase 29 IU/L (14-36); Bilirubin Total 0.2 mg/dL (0.2-1.3); Blood Urea Nitrogen 16 mg/dL (7-17); Calcium 9.5 mg/dL (8.4-10.2); Carbon Dioxide 28 mmol/L (22-32); Chloride 95 mmol/L (98-107); Estimated Glomerular Filt Rate > 60 mL/min (>60); Globulin 2.1 g/dL (1.7-4.1); Glucose 72 mg/dL (70-100); HEMOLYSIS < 15 (0-50); Sodium 129 mmol/L (137-145); Total Protein 6.8 g/dL (6.3-8.2)
[2024-11-23 16:43] LABS: Potassium 4.1 mmol/L (3.4-5.1)
[2024-11-26 14:07] LABS: Lamotrigine Lamictal 8.1 ug/mL (2.0-20.0)
== END ==
PROVIDERS: PCP Physician Assistant; Referring Provider Psychiatry & Neurology Neurology; Visit Provider Psychiatry & Neurology Neurology
DX: G40.109 Localization-related (focal) (partial) symptomatic epilepsy and epileptic syndromes with simple partial seizures, not intractable, without status epilepticus (principal); T88.7XXA Unspecified adverse effect of drug or medicament, initial encounter
CPT/HCPCS: 36415; 80053; 80175; 85025

== ENCOUNTER 2024-11-23 15:05 | Emergency (ER) | payer BC, SELFPAY ==
[2022-12-30 15:16] VITALS: BMI 24.0
[2024-11-23] VITALS (7 sets, daily range): BP systolic 121–138; BP diastolic 65–70; PULSE 63–73; RESP 13–20; TEMP 36.8; O2SAT 95–96; BMI 24.9
--- NOTE | 2024-11-23 15:17 | EKG_ITS ---
[address] [address] Test Date: 2024-11-23 Pat Name: Alma Eden Department: Room: Gender: Female Map Drafter: JORGE LUIS : 1965 Requested By: Order Number: [id number] Reading MD: Dawson Burrell Measurements Intervals [place] Rate: 72 P: 62 [place]: 156 QRS: -71 QRSD: 96 T: 56 QT: 450 QTc: 492 Interpretive Statements Normal sinus rhythm Possible Left atrial enlargement Incomplete right bundle branch block Left anterior fascicular block Prolonged QT Electronically Signed On 11-23-2024 17:22:29 PST by Dawson Burrell
--- NOTE | 2024-11-23 15:29 | ED_ITS ---
HPI - Recheck/Abnormal Lab/Rx General Chief Complaint: Recheck/Abnormal Lab/Rx Stated Complaint: K levels at critical level per PCP Time Seen by Provider: 11/23/24 15:52 Source: patient Mode of arrival: Ambulatory History of Present Illness HPI narrative: Patient 59-year-old female history of epilepsy hypertension recently started on oxcarbazepine she actually had some routine lab work done as an outpatient she was sent to the ED because she was found to be hyperkalemic with a potassium of 6.3. She is completely asymptomatic has no complaints. Reports that she has been having some breakthrough seizures which is moist there changing up her medication. She does take telmisartan for blood pressure as well. She is completely asymptomatic. Related Data Home Medications Medication Instructions Recorded Confirmed fish [id number] C-vit E 2,000 g PO 01/12/23 10/17/24 mg-650 mg-12 mg/2.5 g emulsion packt ropinirole 1 mg tablet 1 mg PO BEDTIME RLS 11/22/23 10/17/24 telmisartan 40 mg tablet 40 mg PO DAILY High BP 07/17/24 10/17/24 oxcarbazepine 300 mg tablet 300 mg PO BID 09/19/24 10/17/24 ropinirole 0.25 mg tablet 0.25 mg PO BEDTIME 10/17/24 10/17/24 topiramate 100 mg tablet 100 mg PO BID 10/17/24 10/17/24 Previous Rx's Medication Instructions Recorded estradiol 1 mg-progesterone 100 mg 1 cap PO QPM #90 caps 02/22/23 capsule (Bijuva) lamotrigine 200 mg tablet 400 mg (2 x 200 mg) PO BID #360 06/24/23 (Lamictal) tabs desvenlafaxine succinate 100 mg 100 mg PO DAILY #30 tabs 06/25/24 tablet,extended release 24 hr benzonatate 200 mg capsule 200 mg PO TID PRN cough #30 caps 09/19/24 guaifenesin 1,200 mg tablet, 1,200 mg PO Q12H #30 tabs 09/19/24 extended release 12 hr modafinil 100 mg tablet 100 mg PO DAILY #30 tabs 09/19/24 modafinil 200 mg tablet See Rx Instructions .Route 09/19/24 .COMPLEX #60 tabs methylprednisolone 4 mg tablets in See Rx Instructions PO PER PKG DIR 10/17/24 a dose pack (Medrol (Darren)) radiculopathy #21 ea fluoxetine 40 mg capsule 80 mg (2 x 40 mg) PO DAILY #180 10/22/24 caps fluoxetine 20 mg capsule (Prozac) 20 mg PO DAILY #90 caps 11/05/24 desvenlafaxine succinate 50 mg 50 mg PO DAILY #30 tabs 11/22/24 tablet,extended release 24 hr Allergies Allergy/AdvReac Type Severity Reaction Status Date / Time No Known Drug Allergies Allergy Verified 11/23/24 15:18 Patient History Medical History Acne (~1979) Anxiety (~1985) Carpal tunnel syndrome (~1994) Cervical myelopathy with cervical radiculopathy Chicken pox COVID-19 virus infection (11/05/22) Depression (~1985) Eczema (~1975) Facet arthropathy, lumbar Hyper reflexia Lumbar radiculopathy Lumbosacral radiculopathy at L4 MMN (multifocal motor neuropathy) Ovarian cyst Restless leg syndrome (~2009) Rheumatoid arthritis Scoliosis Spondylolisthesis at L4-L5 level Vaginal delivery Surgical History Anesthesia History of carpal tunnel release (~09/2021) Family History Father History of heart disease Hypertension Hyperlipidemia Mother Mental health problem Brother Mental health problem Social History (Reviewed 02/19/23 @ 15:06 by Padmini Castillo [facility]) household members: spouse Smoking Status: Never smoker alcohol intake: current Smoking Status: Never smoker alcohol intake frequency: holidays/special occasions only Exam Initial Vital Signs Initial Vital Signs: Vital Signs Pulse Rate 73 11/23/24 15:13 Pulse Oximetry 96 11/23/24 15:13 GENERAL: Alert well-appearing 51-year-old female and in no acute distress. HEENT: Head atraumatic,EOMI, pupils reactive, face symmetric, moist mucous membranes CARDIOVASCULAR: Regular rate and rhythm without murmurs, rubs or gallops. RESPIRATORY: Breath sounds equal bilaterally, no wheezes rales or rhonchi. ABDOMEN: Soft, nontender. Normoactive bowel sounds all 4 quadrants. No guarding or rebound. EXTREMITIES: Normal range of motion, no clubbing or edema. Neurovascularly intact NEUROLOGICAL: Alert and oriented x4.Normal gait and speech. Cranial nerves II through XII grossly intact. SKIN: Warm, dry, no laceration, no petechiae, no rashes or lesions. Course Orders Ordered: ED Orders 11/23/24 15:14 Comprehensive Metabolic Panel Stat 11/23/24 15:21 EKG-12 Lead Stat Vital Signs Vital signs: Vital Signs - 8 hr 11/23/24 15:13 11/23/24 15:14 11/23/24 15:14 Temperature Pulse Rate 73 72 Respiratory Rate Blood Pressure 138/67 Pulse Oximetry 96 96 Oxygen Delivery Method 11/23/24 15:18 11/23/24 15:30 11/23/24 15:30 Temperature 98.2 F Pulse Rate 70 68 Respiratory Rate 18 13 Blood Pressure 138/67 121/65 Pulse Oximetry 96 95 Oxygen Delivery Method Room Air 11/23/24 16:00 11/23/24 16:00 11/23/24 16:30 Temperature Pulse Rate 64 63 Respiratory Rate 18 20 Blood Pressure 128/70 Pulse Oximetry 95 96 Oxygen Delivery Method 11/23/24 16:33 Temperature Pulse Rate 63 Respiratory Rate 17 Blood Pressure 128/70 Pulse Oximetry 95 Oxygen Delivery Method Room Air MDM - Recheck/Abnormal Lab/Rx Lab Data 11/23/24 15:14 Labs: Lab Results 11/23/24 Range/Units 15:14 Sodium 131 L (137-145) mmol/L Potassium 4.1 (3.4-5.1) mmol/L Chloride 97 L (98-107) mmol/L Carbon Dioxide 26 (22-32) mmol/L BUN 15 (7-17) mg/dL Creatinine 0.75 (0.52-1.04) mg/dL Estimated GFR > 60 (>60) mL/min BUN/Creatinine Ratio 20.0 (6-22) Glucose 109 H (70-100) mg/dL Calcium 9.2 (8.4-10.2) mg/dL Total Bilirubin 0.3 (0.2-1.3) mg/dL AST 31 (14-36) IU/L ALT 24 (<35) IU/L Alkaline Phosphatase 95 (38-126) U/L Total Protein 7.1 (6.3-8.2) g/dL Albumin 4.7 (3.5-5.0) g/dL Globulin 2.4 (1.7-4.1) g/dL Albumin/Globulin Ratio 2.0 (1.0-2.8) ECG Data Attestation: I personally reviewed and interpreted this ECG as follows: Prior ECG tracings: available for review Interpretation: Normal sinus rhythm rate 72 HI interval 156 QRS [address] changes no peaked T-waves MDM Narrative Medical decision making narrative: Patient is completely asymptomatic she did have a potassium of 6.3. However she has a repeat here in the emergency department a couple hours later with a potassium of 4.1. Lab actually Re ran the blood work that they had earlier on a different analyzer and came up with a potassium of 4.1 which is what we have in the ED. It seems like there was a analyzer error, she really never was hyperkalemic. However it was noted that she had mild hyperkalemia of 5.4 on November 05 so initially was thought her potassium 6.3 was real however labs came back quickly with a repeat of 4.1. At this time she is completely asymptomatic she is close outpatient follow-up. Recommend she follow up with her primary care provider. Discharge Plan Departure Patient Disposition: Home Clinical Impression: Feared complaint without diagnosis Activity Restrictions/Additional Instructions: *You have been diagnosed with feared complaint without diagnosis *What to do: At this time your blood work is overall reassuring likely a lab error earlier *Continue to take medications as directed *Follow up with your primary care provider in 2-3 days or call [phone] *Return to ER if you should have any new, worsening or concerning symptoms Prescriptions: No Action oxcarbazepine 300 mg tablet 300 mg PO BID benzonatate 200 mg capsule 200 mg PO TID PRN (Reason: cough) Qty: 30 0RF guaifenesin 1,200 mg tablet extended release 12hr 1,200 mg PO Q12H Qty: 30 0RF ropinirole 1 mg tablet 1 mg PO BEDTIME Rx Instructions: administer 1-3 hours before bedtime desvenlafaxine succinate 100 mg tablet extended release 24 hr 100 mg PO DAILY Qty: 30 5RF Rx Instructions: Take with 50 mg tabs for total daily dose of 150 mg daily modafinil 200 mg tablet See Rx Instructions .ROUTE .COMPLEX Qty: 60 5RF Rx Instructions: Take one tab (200 mg) po qam; At mid-day, Take 300 mg po (200 mg tab and 100 mg tab) modafinil 100 mg tablet 100 mg PO DAILY Qty: 30 5RF Rx Instructions: Take 100 mg (1 tab) q mid-day along with 200 mg tab. Bijuva 1-100 mg capsule 1 cap PO QPM Qty: 90 4RF lamotrigine [Lamictal] 200 mg tablet 400 mg PO BID Qty: 360 1RF fluoxetine 40 mg capsule 80 mg PO DAILY MDD 100 mg Qty: 180 1RF Rx Instructions: Take with 20 mg cap for MDD 100 mg fluoxetine [Prozac] 20 mg capsule 20 mg PO DAILY Qty: 90 1RF Rx Instructions: Take with 40 mg caps for MDD 100 mg desvenlafaxine succinate 50 mg tablet extended release 24 hr 50 mg PO DAILY Qty: 30 2RF Rx Instructions: To be taken with 100 mg tabs for total dose of 150 mg daily fish [id number] C-vit E 2,000-650-12 mg/2.5 gram emulsion in packet PO telmisartan 40 mg tablet 40 mg PO DAILY Patient Comments: Replaces 20 mg ropinirole 0.25 mg tablet 0.25 mg PO BEDTIME topiramate 100 mg tablet 100 mg PO BID methylprednisolone [Medrol (Darren)] 4 mg tablets,dose pack See Rx Instructions PO PER PKG DIR Qty: 21 0RF Rx Instructions: PO PER PKG DIR Referrals: Jenny Valencia PA-C [Primary Care Provider] - Stand Alone Forms: Patient Portal/API/Survey
[2024-11-23 15:32] LABS: Alanine Aminotransferase 24 IU/L (<35); Albumin 4.7 g/dL (3.5-5.0); Alkaline Phosphatase 95 U/L (38-126); Aspartate Aminotransferase 31 IU/L (14-36); Bilirubin Total 0.3 mg/dL (0.2-1.3); Blood Urea Nitrogen 15 mg/dL (7-17); Calcium 9.2 mg/dL (8.4-10.2); Carbon Dioxide 26 mmol/L (22-32); Chloride 97 mmol/L (98-107); Estimated Glomerular Filt Rate > 60 mL/min (>60); Globulin 2.4 g/dL (1.7-4.1); Glucose 109 mg/dL (70-100); HEMOLYSIS < 15 (0-50); Potassium 4.1 mmol/L (3.4-5.1); Sodium 131 mmol/L (137-145); Total Protein 7.1 g/dL (6.3-8.2)
== END 2024-11-23 16:40 | disposition home or self-care (01) ==
PROVIDERS: Emergency Provider Emergency Medicine; PCP Physician Assistant
DX: E87.5 Hyperkalemia (principal); G40.909 Epilepsy, unspecified, not intractable, without status epilepticus; I10 Essential (primary) hypertension; I45.2 Bifascicular block; G40.109 Localization-related (focal) (partial) symptomatic epilepsy and epileptic syndromes with simple partial seizures, not intractable, without status epilepticus; T88.7XXA Unspecified adverse effect of drug or medicament, initial encounter
CPT/HCPCS: 36415; 80053; 80175; 85025; 93005; 99283; 99284

== ENCOUNTER → 2024-11-24 11:12 | Outpatient (CLI) | payer BC, SELFPAY ==
[2022-12-30 15:16] VITALS: BMI 24.0
--- NOTE | 2024-11-24 | DI.MG.S_ITS ---
BILATERAL DIGITAL SCREENING MAMMOGRAM 3D/2D WITH CAD: 11/24/2024 CLINICAL: Routine screening. Comparison is made to exams dated: 11/14/2023 mammogram, 10/08/2022 mammogram, and 10/06/2021 mammogram - [facility]. The breasts are heterogeneously dense, which may obscure small masses (category c / 51-75% glandular tissue). Current study was also evaluated with a Computer Aided Detection (CAD) system. There is possible developing architectural distortion in the left breast posterior depth superior region seen on the mediolateral oblique view only. No other significant masses, calcifications, or other findings are seen in either breast. IMPRESSION: INCOMPLETE: NEED ADDITIONAL IMAGING EVALUATION The possible developing architectural distortion in the left breast is indeterminate. Additional views with possible ultrasound are recommended. Based on the Tyrer Cuzick model (a risk assessment model) the patient's lifetime risk is 14.5% and her 10 year risk is 5.5%. According to the ACR, ACS, and NCCN guidelines, an annual breast MRI exam along with mammogram is recommended if the patient's lifetime risk is 20% or greater. This exam was interpreted at Station ID: [id number]. NOTE: For mammograms, a report in lay terms will be sent to the patient. Approximately 15% of breast malignancies will not be visualized mammographically. In the management of a palpable breast mass, a negative mammogram must not discourage biopsy of a clinically suspicious lesion. Electronically Signed By: Eliel Johnson M.D. [facility]/:11/26/2024 16:18:23 letter sent: Additional Imaging Needed ACR BI-RADS Category 0: Incomplete: Need Additional Imaging Evaluation
== END ==
PROVIDERS: PCP Physician Assistant; Referring Provider Physician Assistant; Visit Provider Physician Assistant
DX: Z12.31 Encounter for screening mammogram for malignant neoplasm of breast (principal); R92.30 Dense breasts, unspecified
CPT/HCPCS: 77063; 77067

== ENCOUNTER → 2024-12-06 13:21 | Outpatient (CLI) | payer BC, SELFPAY ==
[2022-12-30 15:16] VITALS: BMI 24.0
[2024-12-06 14:12] LABS: Add Manual Diff / Slide Review NO; Basophils Absolute Auto 0 /uL (0-100); Basophils Percent Auto 0.5 % (0-2); Eosinophils Absolute Auto 200 /uL (0-450); Eosinophils Percent Auto 4.6 % (2-4); Hematocrit 36.9 % (36-46); Hemoglobin 12.5 g/dL (12.0-16.0); Lymphocytes Absolute Auto 1200 /uL (1100-4500); Lymphocytes Percent Auto 22.9 % (25-40); Mean Corpuscular Hemoglobin 30.9 PG (26-34); Mean Corpuscular Volume 90.9 fL (80-100); Monocytes Absolute Auto 400 /uL (0-900); Monocytes Percent Auto 6.9 % (3-14); Neutrophils Absolute Auto 3400 /uL (1500-7000); Neutrophils Percent Auto 65.1 % (50-75); Platelet Count 238 X10^3/uL (150-400); Red Blood Cell Count 4.06 X10^6/uL (4.0-5.2); Red Cell Distribution Width 13.4 % (11.6-14.8); White Blood Cell Count 5.3 X10^3/uL (4.5-11.0)
[2024-12-06 14:59] LABS: HEMOLYSIS < 15 (0-50); Iron 112 ug/dL (37-170)
[2024-12-06 15:00] LABS: Alanine Aminotransferase 19 IU/L (<35); Albumin 4.6 g/dL (3.5-5.0); Albumin Globulin Ratio 2.3 (1.0-2.8); Alkaline Phosphatase 89 U/L (38-126); Aspartate Aminotransferase 26 IU/L (14-36); BUN Creatinine Ratio 20.8 (6-22); Bilirubin Total 0.3 mg/dL (0.2-1.3); Blood Urea Nitrogen 16 mg/dL (7-17); Calcium 9.4 mg/dL (8.4-10.2); Carbon Dioxide 27 mmol/L (22-32); Chloride 96 mmol/L (98-107); Estimated Glomerular Filt Rate > 60 mL/min (>60); Glucose 87 mg/dL (70-100); HEMOLYSIS < 15 (0-50); Potassium 3.8 mmol/L (3.4-5.1); Sodium 130 mmol/L (137-145); Total Protein 6.6 g/dL (6.3-8.2)
[2024-12-06 15:10] LABS: Percent Iron Saturation 49 % (15-50); Total Iron Binding Capacity 230 ug/dL (265-497); Transferrin 226 mg/dL (206-381)
[2024-12-06 15:35] LABS: Ferritin 109 ng/mL (11-264)
== END ==
PROVIDERS: PCP Physician Assistant; Referring Provider Psychiatry & Neurology Neurology; Visit Provider Psychiatry & Neurology Neurology
DX: G40.109 Localization-related (focal) (partial) symptomatic epilepsy and epileptic syndromes with simple partial seizures, not intractable, without status epilepticus (principal); G25.81 Restless legs syndrome; F41.9 Anxiety disorder, unspecified; F33.2 Major depressive disorder, recurrent severe without psychotic features; G47.419 Narcolepsy without cataplexy; T88.7XXA Unspecified adverse effect of drug or medicament, initial encounter; E61.1 Iron deficiency
CPT/HCPCS: 36415; 80053; 80183; 82728; 83540; 83550; 85025

== ENCOUNTER → 2024-12-07 12:53 | Outpatient (CLI) | payer BC, SELFPAY ==
[2022-12-30 15:16] VITALS: BMI 24.0
--- NOTE | 2024-12-07 12:54 | DI.RAD.S_ITS ---
PROCEDURE: FL BARIUM SWALLOW INDICATIONS: DYSPHAGIA COMPARISON: None. FINDINGS: Function: There is normal esophageal peristalsis. No elicited gastroesophageal reflux. There is normal transit of a calibrated barium tablet through the esophagus into the stomach. Morphology: Air-contrast images demonstrate normal mucosal morphology. Single contrast views show no esophageal strictures, extrinsic mass effects, or diverticula. Limited images of the stomach demonstrate normal appearance. IMPRESSION: 1. Normal barium swallow study. 2. Patient described a sensation of unable to initiate swallowing in the upper esophagus, which may be related to patient's recent history of epilepsy. Consider speech pathology consult and further workup. Dictated by: Sridhar Webster M.D. on 12/07/2024 at 13:42 Approved by: Sridhar Webster M.D. on 12/07/2024 at 13:44
== END ==
PROVIDERS: PCP Physician Assistant; Referring Provider Physician Assistant; Visit Provider Physician Assistant
DX: R13.10 Dysphagia, unspecified (principal)
CPT/HCPCS: 74220

== ENCOUNTER → 2024-12-24 08:41 | Outpatient (CLI) | payer BC, SELFPAY ==
[2022-12-30 15:16] VITALS: BMI 24.0
--- NOTE | 2024-12-24 08:42 | DI.US.S_ITS ---
LIMITED ULTRASOUND OF LEFT BREAST AND AXILLA: 12/24/2024 CLINICAL: Patient returns today to evaluate a focal asymmetry in the left breast. Comparison is made to exams dated: 12/24/2024 mammogram, 11/24/2024 mammogram, 11/14/2023 mammogram, 10/08/2022 mammogram, 10/06/2021 mammogram, and 09/10/2020 mammogram - [facility]. Color flow and real-time ultrasound of the left breast 2 o'clock, and axilla regions were performed. Means scale images of the real-time examination were reviewed. No significant abnormalities were seen sonographically in the left breast. Specifically, no finding to correspond to the patient's resolved screening mammographic abnormality. Incidental focus of glandular tissue vs benign lymph node was imaged. IMPRESSION: NEGATIVE There is no sonographic correlate to the patient's resolved screening mammogram finding, and no evidence of malignancy. Return to annual mammogram screening schedule is recommended. Findings and recommendations were conveyed to the patient at time of exam. Electronically Signed By: Brandy stephens/:12/24/2024 12:30:12 letter sent: Normal Exam ACR BI-RADS Category 1: Negative
--- NOTE | 2024-12-24 08:42 | DI.MG.S_ITS ---
UNILATERAL LEFT DIGITAL DIAGNOSTIC MAMMOGRAM 3D/2D WITH ADDITIONAL VIEWS: 12/24/2024 CLINICAL: Additional evaluation requested from prior study. Comparison is made to exams dated: 11/24/2024 mammogram, 11/14/2023 mammogram, and 10/08/2022 mammogram - [facility]. The breasts are heterogeneously dense, which may obscure small masses (category c / 51-75% glandular tissue). The possible developing architectural distortion in the left breast posterior depth superior region seen on the mediolateral oblique view at screening is not seen in additional views. This is less prominent and not able to be reproduced. No other significant masses or calcifications are seen in the breast. IMPRESSION: INCOMPLETE: NEED ADDITIONAL IMAGING EVALUATION Resolution of screening mammography abnormality with additional views. Ultrasound evaluation to confirm resolution is recommended and was performed immediately following this exam. Based on the Tyrer Cuzick model (a risk assessment model) the patient's lifetime risk is 14.5% and her 10 year risk is 5.5%. According to the ACR, ACS, and NCCN guidelines, an annual breast MRI exam along with mammogram is recommended if the patient's lifetime risk is 20% or greater. This exam was interpreted at Station ID: [id number]. NOTE: For mammograms, a report in lay terms will be sent to the patient. Approximately 15% of breast malignancies will not be visualized mammographically. In the management of a palpable breast mass, a negative mammogram must not discourage biopsy of a clinically suspicious lesion. Electronically Signed By: Brandy stephens/:12/24/2024 10:22:47 letter sent: Additional Imaging Needed ACR BI-RADS Category 0: Incomplete: Need Additional Imaging Evaluation
== END ==
PROVIDERS: PCP Physician Assistant; Referring Provider Physician Assistant; Visit Provider Physician Assistant
DX: R92.8 Other abnormal and inconclusive findings on diagnostic imaging of breast (principal); R92.333 Mammographic heterogeneous density, bilateral breasts
CPT/HCPCS: 76642; 77065; G0279

== ENCOUNTER 2024-12-27 11:05 | Emergency (ER) | payer BC, SELFPAY ==
[2022-12-30 15:16] VITALS: BMI 24.0
[2024-12-27 11:21] VITALS: BP 162/77; PULSE 75; RESP 14; TEMP 37.2; O2SAT 100; BMI 24.9
[2024-12-27 11:42] LABS: Add Manual Diff / Slide Review NO; Basophils Absolute Auto 0 /uL (0-100); Basophils Percent Auto 0.5 % (0-2); Eosinophils Absolute Auto 200 /uL (0-450); Eosinophils Percent Auto 2.8 % (2-4); Hematocrit 35.4 % (36-46); Lymphocytes Absolute Auto 1200 /uL (1100-4500); Lymphocytes Percent Auto 13.9 % (25-40); Mean Corpuscular HGB Conc 33.9 % (30-36); Mean Corpuscular Hemoglobin 30.9 PG (26-34); Mean Corpuscular Volume 91.3 fL (80-100); Monocytes Absolute Auto 600 /uL (0-900); Neutrophils Absolute Auto 6700 /uL (1500-7000); Neutrophils Percent Auto 75.8 % (50-75); Platelet Count 246 X10^3/uL (150-400); Red Blood Cell Count 3.88 X10^6/uL (4.0-5.2); Red Cell Distribution Width 13.2 % (11.6-14.8); White Blood Cell Count 8.9 X10^3/uL (4.5-11.0)
[2024-12-27 11:46] LABS: Alanine Aminotransferase 21 IU/L (<35); Albumin 4.5 g/dL (3.5-5.0); Alkaline Phosphatase 100 U/L (38-126); Aspartate Aminotransferase 28 IU/L (14-36); BUN Creatinine Ratio 28.6 (6-22); Bilirubin Total 0.4 mg/dL (0.2-1.3); Blood Urea Nitrogen 18 mg/dL (7-17); Carbon Dioxide 26 mmol/L (22-32); Chloride 94 mmol/L (98-107); Estimated Glomerular Filt Rate > 60 mL/min (>60); Glucose 90 mg/dL (70-100); HEMOLYSIS < 15 (0-50); Sodium 127 mmol/L (137-145); Total Protein 6.8 g/dL (6.3-8.2)
[2024-12-27 11:47] LABS: Globulin 2.3 g/dL (1.7-4.1)
[2024-12-27 12:43] VITALS: BP 155/71; PULSE 72
[2024-12-27 13:00] VITALS: BP 145/76; PULSE 64; RESP 15; O2SAT 98
[2024-12-27 13:30] VITALS: BP 157/78; PULSE 69; RESP 24; O2SAT 100
--- NOTE | 2024-12-27 13:59 | ED.RECABL ---
HPI - Recheck/Abnormal Lab/Rx General Chief Complaint: Recheck/Abnormal Lab/Rx Stated Complaint: Low sodium Time Seen by Provider: 12/27/24 13:24 History of Present Illness HPI narrative: Patient is sent here by primary care for evaluation of hyponatremia, symptomatic with bilateral leg cramping. Ongoing for the past 1.5 months. Patient is on Lamictal and oxcarbazepine for late onset adult seizures. Two years ago her sodium levels were normal but since starting Lamictal it has slowly declined. Despite 3 weeks of sodium replacement orally she can not get her sodium levels back to normal. Last known seizure 1.5 years ago. Related Data Home Medications Medication Instructions Recorded Confirmed fish [id number] C-vit E 2,000 g PO 01/12/23 10/17/24 mg-650 mg-12 mg/2.5 g emulsion packt ropinirole 1 mg tablet 1 mg PO BEDTIME RLS 11/22/23 10/17/24 telmisartan 40 mg tablet 40 mg PO DAILY High BP 07/17/24 10/17/24 oxcarbazepine 300 mg tablet 300 mg PO BID 09/19/24 10/17/24 ropinirole 0.25 mg tablet 0.25 mg PO BEDTIME 10/17/24 10/17/24 topiramate 100 mg tablet 100 mg PO BID 10/17/24 10/17/24 Previous Rx's Medication Instructions Recorded estradiol 1 mg-progesterone 100 mg 1 cap PO QPM #90 caps 02/22/23 capsule (Bijuva) lamotrigine 200 mg tablet 400 mg (2 x 200 mg) PO BID #360 06/24/23 (Lamictal) tabs benzonatate 200 mg capsule 200 mg PO TID PRN cough #30 caps 09/19/24 guaifenesin 1,200 mg tablet, 1,200 mg PO Q12H #30 tabs 09/19/24 extended release 12 hr modafinil 100 mg tablet 100 mg PO DAILY #30 tabs 09/19/24 modafinil 200 mg tablet See Rx Instructions .Route 09/19/24 .COMPLEX #60 tabs methylprednisolone 4 mg tablets in See Rx Instructions PO PER PKG DIR 10/17/24 a dose pack (Medrol (Darren)) radiculopathy #21 ea fluoxetine 40 mg capsule 80 mg (2 x 40 mg) PO DAILY #180 10/22/24 caps fluoxetine 20 mg capsule (Prozac) 20 mg PO DAILY #90 caps 11/05/24 desvenlafaxine succinate 50 mg 50 mg PO DAILY #30 tabs 11/22/24 tablet,extended release 24 hr desvenlafaxine succinate 100 mg 100 mg PO DAILY #30 tabs 12/07/24 tablet,extended release 24 hr furosemide 20 mg tablet (Lasix) 20 mg PO DAILY #30 tabs 12/27/24 Allergies Allergy/AdvReac Type Severity Reaction Status Date / Time No Known Drug Allergies Allergy Verified 12/27/24 11:21 Review of Systems Review of Systems Narrative: GENERAL: Negative chills, fatigue, malaise, fever, sweats. HEENT: Negative sinus pain, ear pain, sore throat RESPIRATORY: Negative dyspnea, cough CARDIOVASCULAR: Negative chest pain, palpitations GASTROINTESTINAL: Negative nausea, vomiting, abdominal pain : Negative dysuria, frequency, hematuria MUSCULOSKELETAL: Positive muscle spasms SKIN: Negative rash, skin lesions NEUROLOGIC: Negative weakness, numbness ROS Unobtainable: All systems reviewed & are unremarkable except as noted in HPI and below Patient History Medical History Acne (~1979) Anxiety (~1985) Carpal tunnel syndrome (~1994) Cervical myelopathy with cervical radiculopathy Chicken pox COVID-19 virus infection (11/05/22) Depression (~1985) Eczema (~1975) Facet arthropathy, lumbar Hyper reflexia Lumbar radiculopathy Lumbosacral radiculopathy at L4 MMN (multifocal motor neuropathy) Ovarian cyst Restless leg syndrome (~2009) Rheumatoid arthritis Scoliosis Spondylolisthesis at L4-L5 level Vaginal delivery Surgical History Anesthesia History of carpal tunnel release (~09/2021) Family History Father History of heart disease Hypertension Hyperlipidemia Mother Mental health problem Brother Mental health problem Social History household members: spouse Smoking Status: Never smoker alcohol intake: current Smoking Status: Never smoker alcohol intake frequency: holidays/special occasions only Exam Narrative Exam Narrative: GENERAL: in no distress, not toxic not dyspneic HEAD: Normocephalic. EYES: Pupils equal round ENT: Mucous membranes moist. NECK: Trachea midline. CARDIOVASCULAR: Regular rate and rhythm RESPIRATORY: Clear to auscultation. Breath sounds equal bilaterally. No wheezes, rales, or rhonchi. GASTROINTESTINAL: Abdomen soft, non-tender EXTREMITIES: No gross deformities. NEURO: AOx4. Clear speech, strong marketing data specialist, strong bilateral patellar reflexes. Nontender calves and quadriceps. SKIN: Warm and dry PSYCH: Not anxious, is cooperative Initial Vital Signs Initial Vital Signs: Vital Signs Temperature 98.9 F 12/27/24 11:21 Pulse Rate 75 12/27/24 11:21 Respiratory Rate 14 12/27/24 11:21 Blood Pressure 162/77 H 12/27/24 11:21 Pulse Oximetry 100 12/27/24 11:21 Oxygen Delivery Method Room Air 12/27/24 11:21 Course Orders Ordered: ED Orders 12/27/24 11:25 CMP [Comprehensive Metabolic Panel] Stat Complete Blood Count AUTO DIFF Stat Vital Signs Vital signs: Vital Signs - 8 hr 12/27/24 11:21 12/27/24 12:43 12/27/24 12:43 Temperature 98.9 F Pulse Rate 75 72 Respiratory Rate 14 Blood Pressure 162/77 H 155/71 H Pulse Oximetry 100 Oxygen Delivery Method Room Air MDM - Recheck/Abnormal Lab/Rx Lab Data 12/27/24 11:25 12/27/24 11:25 Labs: Lab Results 12/27/24 Range/Units 11:25 WBC 8.9 (4.5-11.0) X10^3/uL RBC 3.88 L (4.0-5.2) X10^6/uL Hgb 12.0 (12.0-16.0) g/dL Hct 35.4 L (36-46) % MCV 91.3 (80-100) fL MCH 30.9 (26-34) PG MCHC 33.9 (30-36) % RDW 13.2 (11.6-14.8) % Plt Count 246 (150-400) X10^3/uL Neut % (Auto) 75.8 H (50-75) % Lymph % (Auto) 13.9 L (25-40) % [place] % (Auto) 7.0 (3-14) % Eos % (Auto) 2.8 (2-4) % Baso % (Auto) 0.5 (0-2) % Neut # (Auto) 6700 (2445-4839) /uL Lymph # (Auto) 1200 (0332-5233) /uL [place] # (Auto) 600 (0-900) /uL Eos # (Auto) 200 (0-450) /uL Baso # (Auto) 0 (0-100) /uL Sodium 127 L (137-145) mmol/L Potassium 4.0 (3.4-5.1) mmol/L Chloride 94 L (98-107) mmol/L Carbon Dioxide 26 (22-32) mmol/L BUN 18 H (7-17) mg/dL Creatinine 0.63 (0.52-1.04) mg/dL Estimated GFR > 60 (>60) mL/min BUN/Creatinine Ratio 28.6 H (6-22) Glucose 90 (70-100) mg/dL Calcium 9.0 (8.4-10.2) mg/dL Total Bilirubin 0.4 (0.2-1.3) mg/dL AST 28 (14-36) IU/L ALT 21 (<35) IU/L Alkaline Phosphatase 100 (38-126) U/L Total Protein 6.8 (6.3-8.2) g/dL Albumin 4.5 (3.5-5.0) g/dL Globulin 2.3 (1.7-4.1) g/dL Albumin/Globulin Ratio 2.0 (1.0-2.8) [facility] Narrative Medical decision making narrative: Patient is sent here by primary care for evaluation of hyponatremia, symptomatic with bilateral leg cramping. Ongoing for the past 1.5 months. Patient is on Lamictal and oxcarbazepine for late onset adult seizures. Two years ago her sodium levels were normal but since starting Lamictal it has slowly declined. Despite 3 weeks of sodium replacement orally she can not get her sodium levels back to normal. Last known seizure 1.5 years ago. After history and exam, exam is reassuring. CBC CMP, EKG [facility] Medical records reviewed: No recent visit for this complaint however sodium levels noted for the past 1 month drawn regularly Differential considered: Includes but not limited to medication reaction hyponatremia Lab Test results independently reviewed as above. Pertinent findings: Sodium 127 WBC 8.9 hemoglobin 12.0 potassium 4.0 BUN 18 creatinine 0.63 GFR greater than 60 calcium 9.0 Independently reviewed EKG normal sinus rhythm rate [address] elevation or depression Imaging studies independently reviewed: None indicated at this time Consultations: 2:00 p.m.. Spoke with [facility], nephrology, Dr. Junior, who would like to see patient in his office in [place] for follow up. Start Lasix 20 mg daily. Patient to increase sodium 1 g 4 times a day. Fluid intake less than 2 L a day. Patient is to stay on her seizure medications. Treatments: None indicated at this time Re-evaluations: 2:26 p.m.. Updated patient results exam and my discussion with nephrology services. She states she has been drinking 3-4 L a day of fluid. I review with her fluid restriction less than 2 L a day, medication Lasix as well as increasing sodium to 4 times a day. She agrees with treatment plan. Patient in no distress. No muscle cramping at this time. Discussion: Appropriate for discharge home. Patient neurologically intact. No seizures here. Exam is reassuring. Return precautions reviewed patient. Nephrology service was contacted. Referral will be provided. She desires discharge home. Diagnosis: Hyponatremia Discharge Plan Departure Patient Disposition: Home Clinical Impression: Hyponatremia Instructions: DI for Hyponatremia Activity Restrictions/Additional Instructions: Please call provided nephrology office today for follow up, we have contacted Nephrology service today for medication recommendations. Lasix 20 mg once a day will be prescribed. You are to take your sodium tablets 4 times a day, 1 g 4 times a day. drink less than 2 L of fluid a day. Return if worse if any questions or concerns. Prescriptions: New furosemide [Lasix] 20 mg tablet 20 mg PO DAILY Qty: 30 0RF No Action oxcarbazepine 300 mg tablet 300 mg PO BID benzonatate 200 mg capsule 200 mg PO TID PRN (Reason: cough) Qty: 30 0RF guaifenesin 1,200 mg tablet extended release 12hr 1,200 mg PO Q12H Qty: 30 0RF ropinirole 1 mg tablet 1 mg PO BEDTIME Rx Instructions: administer 1-3 hours before bedtime modafinil 200 mg tablet See Rx Instructions .ROUTE .COMPLEX Qty: 60 5RF Rx Instructions: Take one tab (200 mg) po qam; At mid-day, Take 300 mg po (200 mg tab and 100 mg tab) modafinil 100 mg tablet 100 mg PO DAILY Qty: 30 5RF Rx Instructions: Take 100 mg (1 tab) q mid-day along with 200 mg tab. Bijuva 1-100 mg capsule 1 cap PO QPM Qty: 90 4RF lamotrigine [Lamictal] 200 mg tablet 400 mg PO BID Qty: 360 1RF fluoxetine 40 mg capsule 80 mg PO DAILY MDD 100 mg Qty: 180 1RF Rx Instructions: Take with 20 mg cap for MDD 100 mg fluoxetine [Prozac] 20 mg capsule 20 mg PO DAILY Qty: 90 1RF Rx Instructions: Take with 40 mg caps for MDD 100 mg desvenlafaxine succinate 50 mg tablet extended release 24 hr 50 mg PO DAILY Qty: 30 2RF Rx Instructions: To be taken with 100 mg tabs for total dose of 150 mg daily desvenlafaxine succinate 100 mg tablet extended release 24 hr 100 mg PO DAILY Qty: 30 5RF Rx Instructions: Take with 50 mg tabs for total daily dose of 150 mg daily fish [id number] C-vit E 2,000-650-12 mg/2.5 gram emulsion in packet PO telmisartan 40 mg tablet 40 mg PO DAILY Patient Comments: Replaces 20 mg ropinirole 0.25 mg tablet 0.25 mg PO BEDTIME topiramate 100 mg tablet 100 mg PO BID methylprednisolone [Medrol (Darren)] 4 mg tablets,dose pack See Rx Instructions PO PER PKG DIR Qty: 21 0RF Rx Instructions: PO PER PKG DIR Referrals: Ania Hinojosa MD [Non-Staff] - Jenny Valencia PA-C [Primary Care Provider] - Stand Alone Forms: Patient Portal/API/Survey
[2024-12-27 14:00] VITALS: BP 154/74; PULSE 65; RESP 15; O2SAT 97
--- NOTE | 2024-12-27 14:01 | EKG_ITS ---
[address] [address] Test Date: 2024-12-27 Pat Name: Alma Eden Department: [facility] Room: Gender: Female Ophthalmology Technician: DENNIS : 1965 Requested By: Order Number: [id number] Reading MD: Amadou Guzman Measurements Intervals [place] Rate: 64 P: 55 [place]: 162 QRS: -60 QRSD: 100 T: 55 QT: 454 QTc: 468 Interpretive Statements Normal sinus rhythm Possible Left atrial enlargement Incomplete right bundle branch block Left anterior fascicular block Electronically Signed On 12-30-2024 18:55:45 PST by Amadou Guzman
== END 2024-12-27 14:41 | disposition home or self-care (01) ==
PROVIDERS: Emergency Provider Emergency Medicine; PCP Physician Assistant
DX: E87.1 Hypo-osmolality and hyponatremia (principal)
CPT/HCPCS: 80053; 85025; 93005; 99281; 99284

== ENCOUNTER 2025-01-01 12:23 | Outpatient (CLI) | payer BC, SELFPAY ==
[2022-12-30 15:16] VITALS: BMI 24.0
[2025-01-01] VITALS (9 sets, daily range): BP systolic 117–151; BP diastolic 59–70; PULSE 67–73; RESP 14–19; TEMP 36.9; O2SAT 96–100
--- NOTE | 2025-01-01 12:25 | DI.RAD.S_ITS ---
PROCEDURE: PAIN L/S TRANSFORAMINAL INJECT INDICATIONS: LEFT L4/5 AND L5/S1 TF PHAM COMPARISON: [facility], , PAIN L/S TRANSFORAMINAL INJECT, 08/28/2024, 9:26. FINDINGS/IMPRESSION: Fluoroscopic spot filming was performed to verify placement of spinal needles at the left L4-L5 and left L5-S1 level(s), as labeled on the films. Appropriate location(s) of the needle tip(s) was confirmed by injection of iodinated contrast. Dictated by: Heather Hirsch MD, PhD on 01/02/2025 at 10:19 Approved by: Heather Hirsch MD, PhD on 01/02/2025 at 10:20
[2025-01-01] MEDS: MIDAZOLAM 2 MG/2 ML VIAL IV (13:20)
[2025-01-01] MEDS: MIDAZOLAM 2 MG/2 ML VIAL 1 MG IV (13:31)
[2025-01-01] MEDS: BUPIVACAINE 0.25% (PF) VIAL 2 ML INJ (13:34)
[2025-01-01] MEDS: LIDOCAINE 1% 20 ML 5 ML INJ (13:35)
[2025-01-01] MEDS: iopamidoL 15 ML VIAL 3 ML INJ (13:35)
[2025-01-01] MEDS: DEXAMETHASONE 10 MG/ML VIAL 20 MG INJ (13:35)
[2025-01-01] MEDS: BETAMETHASONE 30 MG/5 ML MDV 12 MG INJ (13:35)
--- NOTE | 2025-01-01 13:44 | P.PCN_ITS ---
Date/Time/Diagnoses Date of procedure: 01/01/25 Time of procedure: 13:44 Pre-procedure diagnosis: 1. FORAMINAL STENOSIS WITH LE SYMPTOMS Post-procedure diagnosis: same Procedure Notes Procedure: 1. FLUOROSCOPICALLY GUIDED CONTRAST CONTROLLED TRANSFORAMINAL EPIDURAL STEROID INJECTION - Left L5/S1 Indications: Alma is referred by SONU Valencia for treatment of Foraminal Stenosis with Left LE Symptoms Physician: Tomasz Magallon Total Fluoroscopy time (seconds): 12 Total sedation minutes: 20 Complications: none Procedure in detail & Post-procedure care: FINDINGS Foraminal Nerve Root Compression secondary to disc disease and facet hypertrophy DESCRIPTION OF PROCEDURE Following review of allergy and review of potential side effects and complications, including, but not necessarily limited to, infection, allergic reaction, local tissue breakdown, stroke, temporary or permanent nerve injury, paralysis, and possible , the patient indicated that the patient understood and agreed to proceed. An informed consent document was signed by the patient, witnessed by a nurse, and placed in the patient's chart. Additionally, other treatment options including medications, modalities, and physical therapy were reviewed with the patient. After review of previous anaesthesic history and IV conscious sedation the patient was deemed safe to proceed with today?s procedure with IV conscious sedation as ASA class II designation. Safety time-out was performed to confirm patient ID, procedure to be performed and site of procedure. IV sedation was accomplished with a combination of 3mg of Versed was administered by the RN after DO order, titrated to patient comfort during the course of the procedure while the patient remained responsive to all verbal commands In the prone position following sterile prep and drape of the lumbar region, the Left L5/S1 posterior neuroforamen was identified fluoroscopically. The skin was anesthetized via a 25-gauge 1.5-inch needle with 1% lidocaine solution. At this point, a 25-gauge 3.5-inch spinal needle was atraumatically introduced and advanced under fluoroscopic guidance through the posterior Left L5/S1 neuroforamen to approximately the anterior aspect of the canal. Depth was confirmed on lateral view. Following negative aspiration, injection of approximately 1.5 cc of Isovue 200 under live fluoroscopy in the AP view con firmed excellent flow along the nerve root, into the epidural space without vascular or intrathecal uptake observed Radiological data, including multiple fluoroscopic views of the lumbosacral spine, reveal a spinal needle at the Left L5/S1 posterior neuroforamen. Subsequent views show flow of contrast material flowing superiorly and inferiorly along the nerve root confirming epidural flow. Subsequently, a test dose of 1.5 cc of 1% lidocaine solution was administered and patient was observed for two minutes for signs or symptoms of complications, including abdominal pain, shortness of breath, bilateral upper or lower extremity weakness, nausea and vomiting, prior to steroid injection. At this point, a total of 3cc or 10mg of dexamethasone and 12mg of betamethasone was injected without incident. The procedure tolerated the procedure well without signs or symptoms of complications prior to transfer to the recovery area continued monitoring without incident. The patient was then transferred to the recovery area where they were observed for an appropriate time after the injection. The patient reported a VAS score of 7 prior to the procedure and a post-procedure VAS of 0. POST OP INSTRUCTIONS The patient was provided a Pain Log to continue to record their response to the target-specific procedure prior to follow-up visit with their referring physician. Additionally, specific post-injection care instructions and a contact number to our office were provided if concerns arise regarding possible complications associated with the procedure are suspected.
== END 2025-01-01 14:03 | disposition home or self-care (01) ==
PROVIDERS: PCP Physician Assistant; Referring Provider Physical Medicine & Rehabilitation; Visit Provider Physical Medicine & Rehabilitation
DX: M48.07 Spinal stenosis, lumbosacral region (principal); M51.17 Intervertebral disc disorders with radiculopathy, lumbosacral region; M47.27 Other spondylosis with radiculopathy, lumbosacral region
CPT/HCPCS: 64483; 64484; 99152; J0702; J1100; J2250; J3490

== ENCOUNTER → 2025-01-07 09:37 | Outpatient (CLI) | payer BC, SELFPAY ==
[2022-12-30 15:16] VITALS: BMI 24.0
[2025-01-07 10:49] LABS: Sodium Urine Random 140 mmol/L (30-90)
[2025-01-07 11:29] LABS: BUN Creatinine Ratio 27.4 (6-22); Blood Urea Nitrogen 20 mg/dL (7-17); Calcium 9.8 mg/dL (8.4-10.2); Carbon Dioxide 29 mmol/L (22-32); Chloride 100 mmol/L (98-107); Estimated Glomerular Filt Rate > 60 mL/min (>60); Glucose 94 mg/dL (70-100); HEMOLYSIS < 15 (0-50); Potassium 4.4 mmol/L (3.4-5.1); Sodium 137 mmol/L (137-145)
[2025-01-08 13:36] LABS: Osmolality, Serum 289 mOsmol/kg (275-295)
[2025-01-08 14:12] LABS: Osmolality Urine 458 mOsmol/kg (.)
== END ==
PROVIDERS: PCP Physician Assistant; Referring Provider Physician Assistant; Visit Provider Physician Assistant
DX: E87.1 Hypo-osmolality and hyponatremia (principal)
CPT/HCPCS: 36415; 80048; 83930; 83935; 84300

== ENCOUNTER → 2025-01-12 07:50 | Outpatient (CLI) | payer BC, SELFPAY ==
[2022-12-30 15:16] VITALS: BMI 24.0
[2025-01-12 09:14] LABS: Cholesterol 217 mg/dL (140-199); Triglycerides 37 mg/dL (35-150)
[2025-01-12 09:26] LABS: HDL Cholesterol 116 mg/dL (40-60); LDL Cholesterol Calculated 94 mg/dL (<100)
== END ==
PROVIDERS: PCP Physician Assistant; Referring Provider Physician Assistant; Visit Provider Physician Assistant
DX: E78.5 Hyperlipidemia, unspecified (principal)
CPT/HCPCS: 36415; 80061

== ENCOUNTER → 2025-01-28 09:33 | Outpatient (CLI) | payer BC, SELFPAY ==
[2022-12-30 15:16] VITALS: BMI 24.0
[2025-01-28 10:38] LABS: Alanine Aminotransferase 21 IU/L (<35); Albumin 4.5 g/dL (3.5-5.0); Alkaline Phosphatase 108 U/L (38-126); Aspartate Aminotransferase 26 IU/L (14-36); Bilirubin Total 0.3 mg/dL (0.2-1.3); Bilirubin Unconjugated 0.1 mg/dL (0.0-1.1); Globulin 2.2 g/dL (1.7-4.1); HEMOLYSIS < 15 (0-50); Total Protein 6.7 g/dL (6.3-8.2)
[2025-01-28 10:38] LABS: BUN Creatinine Ratio 29.3 (6-22); Blood Urea Nitrogen 22 mg/dL (7-17); Calcium 9.5 mg/dL (8.4-10.2); Carbon Dioxide 30 mmol/L (22-32); Chloride 100 mmol/L (98-107); Estimated Glomerular Filt Rate > 60 mL/min (>60); Glucose 96 mg/dL (70-100); HEMOLYSIS < 15 (0-50); Potassium 4.2 mmol/L (3.4-5.1); Sodium 138 mmol/L (137-145)
== END ==
PROVIDERS: Internal Medicine Nephrology; PCP Physician Assistant; Referring Provider Internal Medicine Gastroenterology; Visit Provider Internal Medicine Gastroenterology
DX: R79.89 Other specified abnormal findings of blood chemistry (principal); E87.1 Hypo-osmolality and hyponatremia
CPT/HCPCS: 36415; 80048; 80076

== ENCOUNTER 2025-01-29 12:10 | Emergency (ER) | payer BC, SELFPAY ==
[2022-12-30 15:16] VITALS: BMI 24.0
[2025-01-29 12:15] VITALS: BP 142/67; PULSE 75; RESP 20; TEMP 36.8; O2SAT 97; BMI 23.3
--- NOTE | 2025-01-29 12:36 | ED_ITS ---
HPI - Seizure General Chief Complaint: Seizure Stated Complaint: epileptic, seizure this am Time Seen by Provider: 01/29/25 12:26 Source: patient and family Mode of arrival: Ambulatory Limitations: no limitations History of Present Illness HPI Narrative: 59-YEAR-OLD FEMALE HISTORY OF HIGH BLOOD PRESSURE DYSLIPIDEMIA AND SEIZURES FOR WHICH SHE IS TRANSITIONING FROM oxcarbazepine to lacosamide since oxcrabazepine lowers her sodium. last seizure was in 2021 and today is the 1st day she is decreasing her oxcarbazepine from 450 t.i.d. to 300 and started the lacosamide at 50 mg. She was exercising today when she had a witnessed seizure that lasted for approximately 5 minutes per the patient. other than what is stated 14 point review of system is negative Related Data Home Medications Medication Instructions Recorded Confirmed fish [id number] C-vit E 2,000 g PO 01/12/23 10/17/24 mg-650 mg-12 mg/2.5 g emulsion packt ropinirole 1 mg tablet 1 mg PO BEDTIME RLS 11/22/23 10/17/24 telmisartan 40 mg tablet 40 mg PO DAILY High BP 07/17/24 10/17/24 oxcarbazepine 300 mg tablet 300 mg PO BID 09/19/24 10/17/24 ropinirole 0.25 mg tablet 0.25 mg PO BEDTIME 10/17/24 10/17/24 topiramate 100 mg tablet 100 mg PO BID 10/17/24 10/17/24 Previous Rx's Medication Instructions Recorded estradiol 1 mg-progesterone 100 mg 1 cap PO QPM #90 caps 02/22/23 capsule (Bijuva) lamotrigine 200 mg tablet 400 mg (2 x 200 mg) PO BID #360 06/24/23 (Lamictal) tabs benzonatate 200 mg capsule 200 mg PO TID PRN cough #30 caps 09/19/24 guaifenesin 1,200 mg tablet, 1,200 mg PO Q12H #30 tabs 09/19/24 extended release 12 hr modafinil 100 mg tablet 100 mg PO DAILY #30 tabs 09/19/24 modafinil 200 mg tablet See Rx Instructions .Route 09/19/24 .COMPLEX #60 tabs methylprednisolone 4 mg tablets in See Rx Instructions PO PER PKG DIR 10/17/24 a dose pack (Medrol (Darren)) radiculopathy #21 ea fluoxetine 40 mg capsule 80 mg (2 x 40 mg) PO DAILY #180 10/22/24 caps fluoxetine 20 mg capsule (Prozac) 20 mg PO DAILY #90 caps 11/05/24 desvenlafaxine succinate 50 mg 50 mg PO DAILY #30 tabs 11/22/24 tablet,extended release 24 hr desvenlafaxine succinate 100 mg 100 mg PO DAILY #30 tabs 12/07/24 tablet,extended release 24 hr furosemide 20 mg tablet (Lasix) 20 mg PO DAILY #30 tabs 12/27/24 Allergies Allergy/AdvReac Type Severity Reaction Status Date / Time antihistamines AdvReac Seizure Uncoded 01/29/25 12:23 Review of Systems Review of Systems ROS Unobtainable: All systems reviewed & are unremarkable except as noted in HPI and below Patient History Medical History Acne (~1979) Anxiety (~1985) Carpal tunnel syndrome (~1994) Cervical myelopathy with cervical radiculopathy Chicken pox COVID-19 virus infection (11/05/22) Depression (~1985) Eczema (~1975) Facet arthropathy, lumbar Hyper reflexia Lumbar radiculopathy Lumbosacral radiculopathy at L4 MMN (multifocal motor neuropathy) Ovarian cyst Restless leg syndrome (~2009) Rheumatoid arthritis Scoliosis Spondylolisthesis at L4-L5 level Vaginal delivery Surgical History Anesthesia History of carpal tunnel release (~09/2021) Family History Father History of heart disease Hypertension Hyperlipidemia Mother Mental health problem Brother Mental health problem Social History household members: spouse Smoking Status: Never smoker alcohol intake: current Smoking Status: Never smoker alcohol intake frequency: holidays/special occasions only Exam Narrative Exam Narrative: GENERAL: [59] year old patient appears stated age. Well-developed patient, in mild distress. HEAD: Atraumatic. Normocephalic. EYES: Pupils equal round and reactive. Extraocular motions intact. No scleral icterus. No injection or drainage. ENT: Nose without bleeding, purulent drainage. Throat without erythema, tonsillar hypertrophy or exudate. Airway patent. NECK: Trachea midline. Non tender CARDIOVASCULAR: Regular rate and rhythm without murmurs, gallops, or rubs. RESPIRATORY: Clear to auscultation. Breath sounds equal bilaterally. No wheezes, rales, or rhonchi. GASTROINTESTINAL: Abdomen soft, non-tender, nondistended. EXTREMITIES: No edema or joint tenderness. BACK: Nontender without deformity or crepitance. No flank tenderness. NEURO: AOx3. SKIN: No rash or erythema of visible areas Initial Vital Signs Initial Vital Signs: Vital Signs Temperature 98.2 F 01/29/25 12:15 Pulse Rate 75 01/29/25 12:15 Respiratory Rate 20 01/29/25 12:15 Blood Pressure 142/67 H 01/29/25 12:15 Pulse Oximetry 97 01/29/25 12:15 Oxygen Delivery Method Room Air 01/29/25 12:15 Course Course Course Narrative: All lab work, medical records, previous ER visits, vital signs all reviewed, and nurse triage note reviewed. Pt given NS 1L bolus. patient is back to baseline alert oriented x3 patient left a message with neurologist to get back to her regarding seizure medicines and what to d. Differential diagnosis includes hypoglycemia, seizure, hyponatremia. Orders Ordered: ED Orders 01/29/25 12:25 CBC Auto Diff [Complete Blood Count AUTO DIFF] Stat CMP [Comprehensive Metabolic Panel] Stat Discontinued Medications Sodium Chloride (Normal Saline 0.9%) 1,000 mls @ 1,000 mls/hr IV BOLUS ONE Stop: 01/29/25 13:35 Last Admin: 01/29/25 12:51 Dose: 1,000 mls/hr Documented By: MPO Vital Signs Vital signs: Vital Signs - 8 hr 01/29/25 12:15 Temperature 98.2 F Pulse Rate 75 Respiratory Rate 20 Blood Pressure 142/67 H Pulse Oximetry 97 Oxygen Delivery Method Room Air MDM - Seizure Lab Data 01/29/25 12:25 01/29/25 12:25 Labs: Lab Results 01/29/25 Range/Units 12:25 WBC 6.1 (4.5-11.0) X10^3/uL RBC 4.14 (4.0-5.2) X10^6/uL Hgb 12.7 (12.0-16.0) g/dL Hct 38.1 (36-46) % MCV 91.9 (80-100) fL MCH 30.8 (26-34) PG MCHC 33.5 (30-36) % RDW 12.8 (11.6-14.8) % Plt Count 212 (150-400) X10^3/uL Neut % (Auto) 72.1 (50-75) % Lymph % (Auto) 16.9 L (25-40) % Fleming % (Auto) 7.6 (3-14) % Eos % (Auto) 2.8 (2-4) % Baso % (Auto) 0.6 (0-2) % Neut # (Auto) 4400 (4956-2029) /uL Lymph # (Auto) 1000 L (1012-5783) /uL Fleming # (Auto) 500 (0-900) /uL Eos # (Auto) 200 (0-450) /uL Baso # (Auto) 0 (0-100) /uL Sodium 137 (137-145) mmol/L Potassium 4.4 (3.4-5.1) mmol/L Chloride 102 (98-107) mmol/L Carbon Dioxide 26 (22-32) mmol/L BUN 23 H (7-17) mg/dL Creatinine 0.77 (0.52-1.04) mg/dL Estimated GFR > 60 (>60) mL/min BUN/Creatinine Ratio 29.9 H (6-22) Glucose 92 (70-100) mg/dL Calcium 9.7 (8.4-10.2) mg/dL Total Bilirubin 0.5 (0.2-1.3) mg/dL AST 46 H (14-36) IU/L ALT 21 (<35) IU/L Alkaline Phosphatase 118 (38-126) U/L Total Protein 7.1 (6.3-8.2) g/dL Albumin 4.5 (3.5-5.0) g/dL Globulin 2.6 (1.7-4.1) g/dL Albumin/Globulin Ratio 1.7 (1.0-2.8) Discharge Plan Departure Patient Disposition: Home Clinical Impression: Seizure Instructions: DI for Seizure Disorder -- Adult Activity Restrictions/Additional Instructions: Return with new or worsening symptoms. Follow up with your neurologist regarding your seizure medications Prescriptions: No Action oxcarbazepine 300 mg tablet 300 mg PO BID benzonatate 200 mg capsule 200 mg PO TID PRN (Reason: cough) Qty: 30 0RF guaifenesin 1,200 mg tablet extended release 12hr 1,200 mg PO Q12H Qty: 30 0RF ropinirole 1 mg tablet 1 mg PO BEDTIME Rx Instructions: administer 1-3 hours before bedtime modafinil 200 mg tablet See Rx Instructions .ROUTE .COMPLEX Qty: 60 5RF Rx Instructions: Take one tab (200 mg) po qam; At mid-day, Take 300 mg po (200 mg tab and 100 mg tab) modafinil 100 mg tablet 100 mg PO DAILY Qty: 30 5RF Rx Instructions: Take 100 mg (1 tab) q mid-day along with 200 mg tab. Bijuva 1-100 mg capsule 1 cap PO QPM Qty: 90 4RF lamotrigine [Lamictal] 200 mg tablet 400 mg PO BID Qty: 360 1RF fluoxetine 40 mg capsule 80 mg PO DAILY MDD 100 mg Qty: 180 1RF Rx Instructions: Take with 20 mg cap for MDD 100 mg fluoxetine [Prozac] 20 mg capsule 20 mg PO DAILY Qty: 90 1RF Rx Instructions: Take with 40 mg caps for MDD 100 mg desvenlafaxine succinate 50 mg tablet extended release 24 hr 50 mg PO DAILY Qty: 30 2RF Rx Instructions: To be taken with 100 mg tabs for total dose of 150 mg daily desvenlafaxine succinate 100 mg tablet extended release 24 hr 100 mg PO DAILY Qty: 30 5RF Rx Instructions: Take with 50 mg tabs for total daily dose of 150 mg daily furosemide [Lasix] 20 mg tablet 20 mg PO DAILY Qty: 30 0RF fish cvt-sxkdw-3-vit C-vit E 2,000-650-12 mg/2.5 gram emulsion in packet PO telmisartan 40 mg tablet 40 mg PO DAILY Patient Comments: Replaces 20 mg ropinirole 0.25 mg tablet 0.25 mg PO BEDTIME topiramate 100 mg tablet 100 mg PO BID methylprednisolone [Medrol (Darren)] 4 mg tablets,dose pack See Rx Instructions PO PER PKG DIR Qty: 21 0RF Rx Instructions: PO PER PKG DIR Referrals: Jenny Valencia PA-C [Primary Care Provider] - Stand Alone Forms: Patient Portal/API/Survey
[2025-01-29 12:45] LABS: Add Manual Diff / Slide Review NO; Basophils Absolute Auto 0 /uL (0-100); Basophils Percent Auto 0.6 % (0-2); Eosinophils Absolute Auto 200 /uL (0-450); Eosinophils Percent Auto 2.8 % (2-4); Hematocrit 38.1 % (36-46); Hemoglobin 12.7 g/dL (12.0-16.0); Lymphocytes Absolute Auto 1000 /uL (1100-4500); Lymphocytes Percent Auto 16.9 % (25-40); Mean Corpuscular HGB Conc 33.5 % (30-36); Mean Corpuscular Hemoglobin 30.8 PG (26-34); Mean Corpuscular Volume 91.9 fL (80-100); Monocytes Absolute Auto 500 /uL (0-900); Monocytes Percent Auto 7.6 % (3-14); Neutrophils Absolute Auto 4400 /uL (1500-7000); Neutrophils Percent Auto 72.1 % (50-75); Platelet Count 212 X10^3/uL (150-400); Red Blood Cell Count 4.14 X10^6/uL (4.0-5.2); Red Cell Distribution Width 12.8 % (11.6-14.8); White Blood Cell Count 6.1 X10^3/uL (4.5-11.0)
[2025-01-29] MEDS: SODIUM CHLORIDE 0.9% 1,000 ML 1000 ML IV (12:51)
[2025-01-29 12:53] LABS: Alanine Aminotransferase 21 IU/L (<35); Albumin 4.5 g/dL (3.5-5.0); Albumin Globulin Ratio 1.7 (1.0-2.8); Alkaline Phosphatase 118 U/L (38-126); Aspartate Aminotransferase 46 IU/L (14-36); BUN Creatinine Ratio 29.9 (6-22); Bilirubin Total 0.5 mg/dL (0.2-1.3); Blood Urea Nitrogen 23 mg/dL (7-17); Calcium 9.7 mg/dL (8.4-10.2); Carbon Dioxide 26 mmol/L (22-32); Chloride 102 mmol/L (98-107); Estimated Glomerular Filt Rate > 60 mL/min (>60); Globulin 2.6 g/dL (1.7-4.1); Glucose 92 mg/dL (70-100); HEMOLYSIS 19 (0-50); Potassium 4.4 mmol/L (3.4-5.1); Sodium 137 mmol/L (137-145); Total Protein 7.1 g/dL (6.3-8.2)
== END 2025-01-29 14:48 | disposition home or self-care (01) ==
PROVIDERS: Emergency Provider Family Medicine; PCP Physician Assistant
DX: G40.909 Epilepsy, unspecified, not intractable, without status epilepticus (principal)
CPT/HCPCS: 36415; 80053; 85025; 96360; 99284

== ENCOUNTER → 2025-02-04 15:02 | Outpatient (CLI) | payer BC, SELFPAY ==
[2022-12-30 15:16] VITALS: BMI 24.0
[2025-02-04 16:38] LABS: BUN Creatinine Ratio 24.1 (6-22); Blood Urea Nitrogen 21 mg/dL (7-17); Calcium 9.8 mg/dL (8.4-10.2); Carbon Dioxide 29 mmol/L (22-32); Chloride 100 mmol/L (98-107); Estimated Glomerular Filt Rate > 60 mL/min (>60); Glucose 106 mg/dL (70-100); HEMOLYSIS < 15 (0-50); Potassium 4.1 mmol/L (3.4-5.1); Sodium 137 mmol/L (137-145)
== END ==
PROVIDERS: PCP Physician Assistant; Referring Provider Internal Medicine Nephrology; Visit Provider Internal Medicine Nephrology
DX: E87.1 Hypo-osmolality and hyponatremia (principal)
CPT/HCPCS: 36415; 80048

== ENCOUNTER → 2025-02-11 07:23 | Outpatient (CLI) | payer BC, SELFPAY ==
[2022-12-30 15:16] VITALS: BMI 24.0
[2025-02-11 08:57] LABS: BUN Creatinine Ratio 48.7 (6-22); Blood Urea Nitrogen 37 mg/dL (7-17); Calcium 9.6 mg/dL (8.4-10.2); Carbon Dioxide 30 mmol/L (22-32); Chloride 104 mmol/L (98-107); Estimated Glomerular Filt Rate > 60 mL/min (>60); Glucose 59 mg/dL (70-100); HEMOLYSIS < 15 (0-50); Potassium 5.2 mmol/L (3.4-5.1); Sodium 140 mmol/L (137-145)
== END ==
LOC: LAB 07:26
PROVIDERS: PCP Physician Assistant; Referring Provider Internal Medicine Nephrology; Visit Provider Internal Medicine Nephrology
DX: E87.1 Hypo-osmolality and hyponatremia (principal)
CPT/HCPCS: 36415; 80048

== ENCOUNTER → 2025-02-18 07:47 | Outpatient (CLI) | payer BC, SELFPAY ==
[2022-12-30 15:16] VITALS: BMI 24.0
[2025-02-18 08:56] LABS: BUN Creatinine Ratio 35.4 (6-22); Blood Urea Nitrogen 23 mg/dL (7-17); Calcium 8.9 mg/dL (8.4-10.2); Carbon Dioxide 27 mmol/L (22-32); Chloride 105 mmol/L (98-107); Estimated Glomerular Filt Rate > 60 mL/min (>60); Glucose 96 mg/dL (70-100); HEMOLYSIS < 15 (0-50); Potassium 4.2 mmol/L (3.4-5.1); Sodium 137 mmol/L (137-145)
== END ==
PROVIDERS: PCP Physician Assistant; Referring Provider Internal Medicine Nephrology; Visit Provider Internal Medicine Nephrology
DX: E87.1 Hypo-osmolality and hyponatremia (principal)
CPT/HCPCS: 36415; 80048

== ENCOUNTER → 2025-02-25 07:32 | Outpatient (CLI) | payer BC, SELFPAY ==
[2022-12-30 15:16] VITALS: BMI 24.0
[2025-02-25 08:24] LABS: BUN Creatinine Ratio 51.3 (6-22); Blood Urea Nitrogen 41 mg/dL (7-17); Calcium 9.5 mg/dL (8.4-10.2); Carbon Dioxide 29 mmol/L (22-32); Chloride 101 mmol/L (98-107); Estimated Glomerular Filt Rate > 60 mL/min (>60); Glucose 72 mg/dL (70-99); HEMOLYSIS < 15 (0-50); Potassium 4.5 mmol/L (3.4-5.1); Sodium 138 mmol/L (137-145)
== END ==
PROVIDERS: PCP Physician Assistant; Referring Provider Internal Medicine Nephrology; Visit Provider Internal Medicine Nephrology
DX: E87.1 Hypo-osmolality and hyponatremia (principal)
CPT/HCPCS: 36415; 80048

== ENCOUNTER → 2025-03-04 07:12 | Outpatient (CLI) | payer BC, SELFPAY ==
[2022-12-30 15:16] VITALS: BMI 24.0
[2025-03-04 08:12] LABS: BUN Creatinine Ratio 35.9 (6-22); Blood Urea Nitrogen 23 mg/dL (7-17); Calcium 9.3 mg/dL (8.4-10.2); Carbon Dioxide 28 mmol/L (22-32); Chloride 104 mmol/L (98-107); Estimated Glomerular Filt Rate > 60 mL/min (>60); Glucose 78 mg/dL (70-99); HEMOLYSIS < 15 (0-50); Potassium 4.1 mmol/L (3.4-5.1); Sodium 138 mmol/L (137-145)
== END ==
PROVIDERS: PCP Physician Assistant; Referring Provider Internal Medicine Nephrology; Visit Provider Internal Medicine Nephrology
DX: E87.1 Hypo-osmolality and hyponatremia (principal)
CPT/HCPCS: 36415; 80048

== ENCOUNTER → 2025-03-18 07:29 | Outpatient (CLI) | payer BC, SELFPAY ==
[2022-12-30 15:16] VITALS: BMI 24.0
[2025-03-18 08:34] LABS: Blood Urea Nitrogen 21 mg/dL (7-17); Calcium 9.5 mg/dL (8.4-10.2); Carbon Dioxide 28 mmol/L (22-32); Chloride 103 mmol/L (98-107); Estimated Glomerular Filt Rate > 60 mL/min (>60); Glucose 83 mg/dL (70-99); HEMOLYSIS < 15 (0-50); Potassium 4.3 mmol/L (3.4-5.1); Sodium 137 mmol/L (137-145)
== END ==
PROVIDERS: PCP Physician Assistant; Referring Provider Internal Medicine Nephrology; Visit Provider Internal Medicine Nephrology
DX: E22.2 Syndrome of inappropriate secretion of antidiuretic hormone (principal); E87.1 Hypo-osmolality and hyponatremia
CPT/HCPCS: 36415; 80048

== ENCOUNTER → 2025-03-26 13:47 | Outpatient (CLI) | payer BC, SELFPAY ==
[2022-12-30 15:16] VITALS: BMI 24.0
[2025-03-26 14:24] LABS: Blood Urea Nitrogen 21 mg/dL (7-17); Calcium 9.5 mg/dL (8.4-10.2); Carbon Dioxide 28 mmol/L (22-32); Chloride 101 mmol/L (98-107); Estimated Glomerular Filt Rate > 60 mL/min (>60); Glucose 101 mg/dL (70-99); HEMOLYSIS < 15 (0-50); Potassium 4.4 mmol/L (3.4-5.1); Sodium 137 mmol/L (137-145)
== END ==
PROVIDERS: PCP Physician Assistant; Referring Provider Internal Medicine Nephrology; Visit Provider Internal Medicine Nephrology
DX: E22.2 Syndrome of inappropriate secretion of antidiuretic hormone (principal); E87.1 Hypo-osmolality and hyponatremia
CPT/HCPCS: 36415; 80048

== ENCOUNTER → 2025-03-29 07:20 | Outpatient (CLI) | payer BC, SELFPAY ==
[2022-12-30 15:16] VITALS: BMI 24.0
[2025-04-02 15:40] LABS: Lacosamide 2.5 ug/mL (5.0-10.0)
== END ==
PROVIDERS: PCP Physician Assistant; Referring Provider Psychiatry & Neurology Neurology; Visit Provider Psychiatry & Neurology Neurology
DX: E87.1 Hypo-osmolality and hyponatremia (principal); G40.019 Localization-related (focal) (partial) idiopathic epilepsy and epileptic syndromes with seizures of localized onset, intractable, without status epilepticus
CPT/HCPCS: 36415; 80235

== ENCOUNTER → 2025-05-02 07:13 | Outpatient (CLI) | payer BC, SELFPAY ==
[2022-12-30 15:16] VITALS: BMI 24.0
[2025-05-02 08:08] LABS: Add Manual Diff / Slide Review NO; Hematocrit 37.0 % (36-46); Hemoglobin 12.5 g/dL (12.0-16.0); Lymphocytes Absolute Auto 1500 /uL (1100-4500); Mean Corpuscular HGB Conc 33.8 % (30-36); Mean Corpuscular Hemoglobin 30.7 PG (26-34); Mean Corpuscular Volume 90.8 fL (80-100); Platelet Count 229 X10^3/uL (150-400)
[2025-05-02 08:28] LABS: Alanine Aminotransferase 20 IU/L (<35); Albumin 4.4 g/dL (3.5-5.0); Albumin Globulin Ratio 1.9 (1.0-2.8); Alkaline Phosphatase 108 U/L (38-126); Blood Urea Nitrogen 17 mg/dL (7-17); Calcium 9.4 mg/dL (8.4-10.2); Carbon Dioxide 28 mmol/L (22-32); Chloride 101 mmol/L (98-107); Cholesterol 205 mg/dL (140-199); Estimated Glomerular Filt Rate > 60 mL/min (>60); Globulin 2.3 g/dL (1.7-4.1); Glucose 85 mg/dL (70-99); HEMOLYSIS < 15 (0-50); Potassium 4.5 mmol/L (3.4-5.1); Sodium 137 mmol/L (137-145); Total Protein 6.7 g/dL (6.3-8.2); Triglycerides 42 mg/dL (35-150)
[2025-05-02 08:35] LABS: HDL Cholesterol 109 mg/dL (40-60)
[2025-05-02 09:02] LABS: Ferritin 103 ng/mL (11-264)
== END ==
PROVIDERS: PCP Physician Assistant; Referring Provider Physician Assistant; Visit Provider Physician Assistant
DX: E78.5 Hyperlipidemia, unspecified (principal); E87.1 Hypo-osmolality and hyponatremia; R79.0 Abnormal level of blood mineral
CPT/HCPCS: 36415; 80053; 80061; 82728; 83935; 85025

== ENCOUNTER 2025-05-28 08:01 | Outpatient (CLI) | payer BC, SELFPAY ==
[2022-12-30 15:16] VITALS: BMI 24.0
[2025-05-28] VITALS (10 sets, daily range): BP systolic 115–137; BP diastolic 55–66; PULSE 63–74; RESP 14–74; TEMP 36.6; O2SAT 95–100
[2025-05-28] MEDS: MIDAZOLAM 2 MG/2 ML VIAL IV ×2 (09:14→09:20)
[2025-05-28] MEDS: LIDOCAINE 1% 20 ML 5 ML INJ (09:18)
[2025-05-28] MEDS: BUPIVACAINE 0.5% (PF) 30 ML VIAL INJ (09:21)
--- NOTE | 2025-05-28 09:33 | PM.PROC.IR.1 ---
Date/Time/Diagnoses Date of procedure: 05/28/25 Time of procedure: 09:33 Pre-procedure diagnosis: 1. FACET ARTHROPATHY Post-procedure diagnosis: same Procedure Notes Procedure: 1. BILATERAL- L4, L5 and S1 DIAGNOSTIC MB BLOCKS with LA Anesthetic Indications: Alma is referred by SONU Valencia for treatment of Bilateral Axial LBP. Physician: Tomasz Magallon Total Fluoroscopy time (seconds): 12 Total sedation minutes: 15 Complications: none Procedure in detail & Post-procedure care: DESCRIPTION OF PROCEDURE Fluoroscopically guided, contrast-controlled bilateral L4, L5 and S1 medial branch blocks with 0.5cc of 0.5% Marcaine. Following review of allergy and review of potential side effects and complications, including, but not necessarily limited to, infection, allergic reaction, local tissue breakdown, nerve injury, paralysis, stroke and possible , the patient indicated that the patient understood and agreed to proceed. An informed consent document was signed by the patient, witnessed by a nurse, and placed in the patient's chart. After review of previous anaesthesic history and IV conscious sedation the patient was deemed safe to proceed with today's procedure with IV conscious sedation as ASA class II designation. Safety time-out was performed to confirm patient ID, procedure to be performed and site of procedure. IV sedation was accomplished with a combination of 4mg of Versed was administered by the RN after DO order, titrated to patient comfort during the course of the procedure while the patient remained responsive to all verbal commands In the prone position, following sterile prep and drape of the lumbar region, the right L4, L5 and S1 anatomical location of the medial branch of the dorsal ramus was identified fluoroscopically. Subsequently an anesthetic skin wheal using 1% lidocaine solution was initiated at each of the anatomical spots. Subsequently then a 22-gauge 3.5-inch spinal needle was atraumatically introduced and advanced under fluoroscopic guidance at each of the corresponding sites at the right L4, L5 and S1 MB. After negative aspiration, 0.2cc of Isovue 200 was injected, confirming placement without vascular or intrathecal uptake. Subsequently then 0.5cc of 0.5% Marcaine solution was injected at each of the corresponding sites at the right L4, L5 and S1 medial branch locations. The identical procedure was replicated on the left. The patient tolerated the procedure well without signs or symptoms of complications prior to transfer to the recovery area continued monitoring without incident. Post-procedure, the patient was monitored initiating provocative activities to measure the amount of relief from block of the facetogenic pain. The patient reported a VAS of 7 prior to the procedure and a post-procedure VAS of 1. It has been a pleasure to assist in the diagnostic and therapeutic care of your patient. POST OP INSTRUCTIONS The patient was provided with a Pain Log to complete over the next several hours and subsequent days prior to the patient's follow up with the ordering physician. If the patient has presales engineer relief to the solution applied, then they may be a candidate for medial branch rhizotomy. The patient is aware, was provided, once again, with a Pain Log and will follow up with the referring physician for review and clinical correlation
== END 2025-05-28 09:50 | disposition home or self-care (01) ==
LOC: RAD 08:01
PROVIDERS: PCP Physician Assistant; Referring Provider Physician Assistant; Visit Provider Physical Medicine & Rehabilitation
DX: M47.816 Spondylosis without myelopathy or radiculopathy, lumbar region (principal); M47.817 Spondylosis without myelopathy or radiculopathy, lumbosacral region
CPT/HCPCS: 64493; 64494; 99152; J2250

== ENCOUNTER 2025-07-21 18:14 | Emergency (ER) | payer BC, SELFPAY ==
[2022-12-30 15:16] VITALS: BMI 24.0
[2025-07-21 18:24] VITALS: BP 123/73; PULSE 68; RESP 16; TEMP 37.1; O2SAT 100; BMI 24.0
[2025-07-21] MEDS: FLUORESCEIN 1 MG STRIP EYE-RIGHT (19:16)
[2025-07-21] MEDS: PROPARACAINE 0.5% OPHTH SOL 1 DROPS EYE-BOTH ×2 (19:17→20:03)
[2025-07-21] MEDS: FLUORESCEIN 1 MG STRIP EYE-LEFT (19:17)
--- NOTE | 2025-07-21 20:24 | ED.GENADULT ---
HPI - General Adult General Chief complaint: Eye Problems Stated complaint: Bilateral Eye Pain, Post Op [id number] ago Time Seen by Provider: 07/21/25 19:24 Source: patient and family Mode of arrival: Ambulatory History of Present Illness HPI narrative: 60-year-old female has recent antiseizure brain probe placement on 07/09/2025 at [facility] for recurring seizure activity, wears eye contacts, this evening took her contacts out, has pain and blurred vision to the right eye, and also some pain to the left eye. No welding or other UV-light ocular exposures. No foreign body sensation. No hammering or grinding of any metal objects, no wind blowing or external foreign body sensation known. Recent cough cold symptoms, fevers, chills, erythema or swelling to the eyelids or face. Some blurred vision to the right eye. Last tetanus less than 5 years ago. Related Data Home Medications ?Medication ?Instructions ?Recorded ?Confirmed fish tsm--utm C-vit E 2,000 g PO 01/12/23 06/24/25 mg-650 mg-12 mg/2.5 g emulsion packt ropinirole 1 mg tablet 1 mg PO BEDTIME RLS 11/22/23 06/24/25 telmisartan 40 mg tablet 40 mg PO DAILY High BP 07/17/24 06/24/25 oxcarbazepine 300 mg tablet 300 mg PO BID 09/19/24 06/24/25 ropinirole 0.25 mg tablet 0.25 mg PO BEDTIME 10/17/24 06/24/25 lacosamide 150 mg tablet 150 mg PO BID 04/10/25 06/24/25 lacosamide 100 mg tablet 100 mg PO BID Anti-seizure 06/24/25 06/24/25 Previous Rx's ?Medication ?Instructions ?Recorded estradiol 1 mg-progesterone 100 mg 1 cap PO QPM #90 caps 02/22/23 capsule (Bijuva) lamotrigine 200 mg tablet 400 mg (2 x 200 mg) PO BID #360 06/24/23 (Lamictal) tabs fluoxetine 20 mg capsule (Prozac) 20 mg PO DAILY #30 caps 03/12/25 fluoxetine 40 mg capsule 80 mg (2 x 40 mg) PO DAILY #60 caps 03/12/25 desvenlafaxine succinate 50 mg 50 mg PO DAILY #30 tabs 05/30/25 tablet,extended release 24 hr modafinil 100 mg tablet 100 mg PO DAILY #30 tabs 05/30/25 modafinil 200 mg tablet 200 mg PO QAM #30 tabs 05/30/25 desvenlafaxine succinate 100 mg 100 mg PO DAILY #30 tabs 07/03/25 tablet,extended release 24 hr Allergies Allergy/AdvReac Type Severity Reaction Status Date / Time antihistamines AdvReac Seizure Uncoded 07/21/25 18:24 Patient History Medical History Acne (~1979) Anxiety (~1985) Carpal tunnel syndrome (~1994) Cervical myelopathy with cervical radiculopathy Chicken pox COVID-19 virus infection (11/05/22) Depression (~1985) Eczema (~1975) Facet arthropathy, lumbar Hyper reflexia Lumbar radiculopathy Lumbosacral radiculopathy at L4 MMN (multifocal motor neuropathy) Ovarian cyst Restless leg syndrome (~2009) Rheumatoid arthritis Scoliosis Spondylolisthesis at L4-L5 level Vaginal delivery Surgical History Anesthesia History of carpal tunnel release (~09/2021) Family History Father History of heart disease Hypertension Hyperlipidemia Mother Mental health problem Brother Mental health problem Social History household members: spouse Smoking Status: Never smoker alcohol intake: current Smoking Status: Never smoker alcohol intake frequency: holidays/special occasions only Exam Narrative Exam Narrative: GENERAL: Well-developed patient, in mild distress. HEAD: Atraumatic. Normocephalic. EYES: Injected sclerae [id number]-left. Fluorescein after proparacaine drops both eyes, corneal abrasion to the right eye over the pupil, mostly central, probably 75% of the area of the cornea as affected. No dendritic component. No forward flow of aqueous fluid. ENT: Nose without bleeding, purulent drainage. Throat without erythema, tonsillar hypertrophy or exudate. Airway patent. NECK: Trachea midline. Non tender CARDIOVASCULAR: Regular rate and rhythm without murmurs, gallops, or rubs. RESPIRATORY: Clear to auscultation. Breath sounds equal bilaterally. No wheezes, rales, or rhonchi. GASTROINTESTINAL: Abdomen soft, non-tender, nondistended. EXTREMITIES: No edema or joint tenderness. BACK: Nontender without deformity or crepitance. No flank tenderness. NEURO: AOx3. Motor functions grossly nonfocal. SKIN: No rash or erythema of visible areas Initial Vital Signs Initial Vital Signs: Vital Signs Temperature 98.8 F 07/21/25 18:24 Pulse Rate 68 07/21/25 18:24 Respiratory Rate 16 07/21/25 18:24 Blood Pressure 123/73 07/21/25 18:24 Pulse Oximetry 100 07/21/25 18:24 Oxygen Delivery Method Room Air 07/21/25 18:24 Course Orders Ordered: Discontinued Medications Hydrocodone Bitart/Acetaminophen (Hydrocodone/Acet 5/325 Tablet) 1 tab PO NOW ONE Stop: 07/21/25 20:49 Last Admin: 07/21/25 20:56 Dose: 1 tab Documented By: Hydrocodone Bitart/Acetaminophen (Hydrocodone/Acet 5/325 Prepack) 1 bottle MISC DIRECTED ONE Stop: 07/21/25 20:49 Last Admin: 07/21/25 20:56 Dose: 1 bottle Documented By: Erythromycin (Erythromycin Ophth 1 Gm Oint) 1 applic EYE-BOTH NOW ONE Stop: 07/21/25 20:50 Last Admin: 07/21/25 20:56 Dose: 1 applic Documented By: AB Fluorescein Sodium (Fluorescein 1 Mg Strip) 1 mg EYE-LEFT NOW PRN PRN Reason: Pain, Severe (7-10) Last Admin: 07/21/25 19:17 Dose: 1 mg Documented By: AB Fluorescein Sodium (Fluorescein 1 Mg Strip) 1 mg EYE-RIGHT NOW PRN PRN Reason: Pain, Severe (7-10) Last Admin: 07/21/25 19:16 Dose: 1 mg Documented By: AB Proparacaine HCl (Proparacaine 0.5% Ophth Elida) 1 drops EYE-BOTH PRN PRN PRN Reason: Pain, Moderate (4-6) Last Admin: 07/21/25 20:03 Dose: 1 drop Documented By: Admin: 07/21/25 19:17 Dose: 5 drop Documented By: AB Vital Signs Vital signs: Vital Signs - 8 hr 07/21/25 18:24 Temperature 98.8 F Pulse Rate 68 Respiratory Rate 16 Blood Pressure 123/73 Pulse Oximetry 100 Oxygen Delivery Method Room Air Medical Decision Making [facility] Narrative Medical decision making narrative: Recent brain probed surgery for seizure in [place], likely not related to current I problems. Painful right eye with blurred vision, wears contact, pain left eye but no blurred vision. Proparacaine drops to both eyes, then fluorescein staining. Large area uptake right cornea, no external flow of aqueous fluid from anterior chamber, no obvious retained foreign body or punctures, no reticular dendritic lesions. Left eye without injury, some mucus. Erythromycin ointment to both eyes, dispensed. Home pack hydrocodone/APAP. Patient will follow up with your eye clinic later this morning during regular Tuesday clinic hours, has eye clinic provider along [facility] here in [facility]. Discharged home with family. Return precautions discussed. Discharge Plan Departure Patient Disposition: Home Clinical Impression: Corneal abrasion, right, Conjunctivitis Instructions: DI for Corneal Abrasion Activity Restrictions/Additional Instructions: Grglj-odrqzgt-uock-left eye pain and some blurred vision in the right eye. Contact use, recently removing your contacts. No welding or foreign body penetrating wounds or injuries known. Proparacaine numbing drops placed, fluorescein exam, right-sided corneal abrasion noted on examination. Tetanus up-to-date. Antibiotic ointment placed both eyes. Conjunctivitis changes to both eyes. No obvious corneal abrasion to the left eye and fluorescein exam. However there is injection and mucus in conjunctivitis changes, consider use of antibiotic ointment to both eyes. Recheck advised tomorrow in your eye clinic, you have an eye clinic provider and [employer] here in [place]. Return to this/nearest emergency department for any change worsening symptoms or any concerns prior. Prescriptions: No Action oxcarbazepine 300 mg tablet 300 mg PO BID ropinirole 1 mg tablet 1 mg PO BEDTIME Rx Instructions: administer 1-3 hours before bedtime fluoxetine 40 mg capsule 80 mg PO DAILY MDD 100 mg Qty: 60 5RF Rx Instructions: Take with 20 mg cap for MDD 100 mg fluoxetine [Prozac] 20 mg capsule 20 mg PO DAILY Qty: 30 5RF Rx Instructions: Take with two 40 mg caps for MDD 100 mg Bijuva 1-100 mg capsule 1 cap PO QPM Qty: 90 4RF lamotrigine [Lamictal] 200 mg tablet 400 mg PO BID Qty: 360 1RF modafinil 200 mg tablet 200 mg PO QAM Qty: 30 2RF Rx Instructions: Take with 100 mg tab for total dose of 300 mg daily modafinil 100 mg tablet 100 mg PO DAILY Qty: 30 2RF Rx Instructions: Take with 200 mg tab for total daily dose of 300 mg daily desvenlafaxine succinate 50 mg tablet extended release 24 hr 50 mg PO DAILY Qty: 30 1RF Rx Instructions: Take with 100 mg dose for total dose of 150 mg daily desvenlafaxine succinate 100 mg tablet extended release 24 hr 100 mg PO DAILY Qty: 30 2RF Rx Instructions: Take with 50 mg tabs for total daily dose of 150 mg daily fish bqk-[id number]-3-vit C-vit E 2,000-650-12 mg/2.5 gram emulsion in packet PO telmisartan 40 mg tablet 40 mg PO DAILY Patient Comments: Replaces 20 mg ropinirole 0.25 mg tablet 0.25 mg PO BEDTIME lacosamide 150 mg tablet 150 mg PO BID Rx Instructions: 4x a day lacosamide 100 mg tablet 100 mg PO BID Patient Comments: Transitioning from C Referrals: Prabha Lopez OD [Non-Staff, Optometry] Jenny Valencia PA-C [Primary Care Provider, Medical] Stand Alone Forms: Patient Portal/API
[2025-07-21] MEDS: ERYTHROMYCIN OPHTH 1 GM OINT 1 APPLIC EYE-BOTH (20:56)
[2025-07-21 21:03] VITALS: BP 112/57; PULSE 78; RESP 15; O2SAT 96
== END 2025-07-21 21:04 | disposition home or self-care (01) ==
PROVIDERS: Emergency Provider Emergency Medicine; PCP Physician Assistant
DX: S05.01XA Injury of conjunctiva and corneal abrasion without foreign body, right eye, initial encounter (principal); H10.9 Unspecified conjunctivitis
CPT/HCPCS: 99283

== ENCOUNTER → 2025-09-12 07:58 | Outpatient (CLI) | payer BC, SELFPAY ==
[2022-12-30 15:16] VITALS: BMI 24.0
[2025-09-12 08:52] LABS: Add Manual Diff / Slide Review NO; Hematocrit 38.1 % (36-46); Hemoglobin 12.8 g/dL (12.0-16.0); Lymphocytes Absolute Auto 1500 /uL (1100-4500); Mean Corpuscular HGB Conc 33.7 % (30-36); Mean Corpuscular Hemoglobin 30.4 PG (26-34); Mean Corpuscular Volume 90.0 fL (80-100); Platelet Count 197 X10^3/uL (150-400)
[2025-09-12 09:15] LABS: Alanine Aminotransferase 17 IU/L (<35); Albumin 4.4 g/dL (3.5-5.0); Albumin Globulin Ratio 1.9 (1.0-2.8); Alkaline Phosphatase 104 U/L (38-126); Blood Urea Nitrogen 16 mg/dL (7-17); Calcium 9.3 mg/dL (8.4-10.2); Carbon Dioxide 25 mmol/L (22-32); Chloride 104 mmol/L (98-107); Cholesterol 189 mg/dL (140-199); Estimated Glomerular Filt Rate > 60 mL/min (>60); Globulin 2.3 g/dL (1.7-4.1); Glucose 85 mg/dL (70-99); HEMOLYSIS < 15 (0-50); Potassium 4.5 mmol/L (3.4-5.1); Sodium 138 mmol/L (137-145); Total Protein 6.7 g/dL (6.3-8.2); Triglycerides 47 mg/dL (35-150)
[2025-09-12 09:30] LABS: HDL Cholesterol 120 mg/dL (40-60)
[2025-09-12 09:46] LABS: Ferritin 52 ng/mL (11-264)
== END ==
LOC: LAB 07:59
PROVIDERS: PCP Physician Assistant; Referring Provider Physician Assistant; Visit Provider Physician Assistant
DX: E78.5 Hyperlipidemia, unspecified (principal); G25.81 Restless legs syndrome
CPT/HCPCS: 36415; 80053; 80061; 82728; 85025

== ENCOUNTER 2025-09-24 09:41 | Outpatient (CLI) | payer BC, SELFPAY ==
[2022-12-30 15:16] VITALS: BMI 24.0
[2025-09-24] VITALS (7 sets, daily range): BP systolic 117–138; BP diastolic 56–62; PULSE 65–67; RESP 14–18; TEMP 36.7; O2SAT 97–100
[2025-09-24] MEDS: MIDAZOLAM 2 MG/2 ML VIAL 4 MG IV (11:22)
[2025-09-24] MEDS: LIDOCAINE 2% INJ MDV 20ML 5 ML INJ (11:29)
[2025-09-24] MEDS: LIDOCAINE 1% 20 ML INJ (11:30)
--- NOTE | 2025-09-24 11:41 | P.PCN_ITS ---
Date/Time/Diagnoses Date of procedure: 09/24/25 Time of procedure: 11:41 Pre-procedure diagnosis: 1. FACET ARTHROPATHY Post-procedure diagnosis: same Procedure Notes Procedure: 1. BILATERAL- L4, L5 and S1 DIAGNOSTIC MB BLOCKS with SA Anesthetic Indications: Alma is referred by SONU Valencia for treatment of Bilateral Axial LBP. Physician: Tomasz Magallon Total Fluoroscopy time (seconds): 9 Total sedation minutes: 10 Complications: none Procedure in detail & Post-procedure care: DESCRIPTION OF PROCEDURE Fluoroscopically guided, contrast-controlled bilateral L4, L5 and S1 medial branch blocks with 0.5cc of 2% Lidocaine. Following review of allergy and review of potential side effects and complications, including, but not necessarily limited to, infection, allergic reaction, local tissue breakdown, nerve injury, paralysis, stroke and possible , the patient indicated that the patient understood and agreed to proceed. An informed consent document was signed by the patient, witnessed by a nurse, and placed in the patient's chart. After review of previous anaesthesic history and IV conscious sedation the patient was deemed safe to proceed with today's procedure with IV conscious sedation as ASA class II designation. Safety time-out was performed to confirm patient ID, procedure to be performed and site of procedure. IV sedation was accomplished with a combination of 4mg of Versed was administered by the RN after DO order, titrated to patient comfort during the course of the procedure while the patient remained responsive to all verbal commands In the prone position, following sterile prep and drape of the lumbar region, the right L4, L5 and S1 anatomical location of the medial branch of the dorsal ramus was identified fluoroscopically. Subsequently an anesthetic skin wheal using 1% lidocaine solution was initiated at each of the anatomical spots. Subsequently then a 22-gauge 3.5-inch spinal needle was atraumatically introduced and advanced under fluoroscopic guidance at each of the corresponding sites at the right L4, L5 and S1 MB. After negative aspiration, 0.2cc of Isovue 200 was injected, confirming placement without vascular or intrathecal uptake. Subsequently then 0.5cc of 2% Lidocaine solution was injected at each of the corresponding sites at the right L4, L5 and S1 medial branch locations. The identical procedure was replicated on the left. The patient tolerated the procedure well without signs or symptoms of complications prior to transfer to the recovery area continued monitoring without incident. Post-procedure, the patient was monitored initiating provocative activities to measure the amount of relief from block of the facetogenic pain. The patient reported a VAS of 7 prior to the procedure and a post-procedure VAS of 1. It has been a pleasure to assist in the diagnostic and therapeutic care of your patient. POST OP INSTRUCTIONS The patient was provided with a Pain Log to complete over the next several hours and subsequent days prior to the patient's follow up with the ordering physician. If the patient has mechanic and welder relief to the solution applied, then they may be a candidate for medial branch rhizotomy. The patient is aware, was provided, once again, with a Pain Log and will follow up with the referring physician for review and clinical correlation
== END 2025-09-24 11:57 | disposition home or self-care (01) ==
PROVIDERS: PCP Physician Assistant; Referring Provider Physician Assistant; Visit Provider Physical Medicine & Rehabilitation
DX: M47.816 Spondylosis without myelopathy or radiculopathy, lumbar region (principal); M47.817 Spondylosis without myelopathy or radiculopathy, lumbosacral region
CPT/HCPCS: 64493; 64494; 99152; J2250

== ENCOUNTER → 2025-10-21 15:03 | Outpatient (CLI) | payer BC, SELFPAY ==
[2022-12-30 15:16] VITALS: BMI 24.0
[2025-10-21 15:38] LABS: Hematocrit 37.2 % (36-46); Hemoglobin 12.5 g/dL (12.0-16.0); Mean Corpuscular HGB Conc 33.6 % (30-36); Mean Corpuscular Hemoglobin 30.1 PG (26-34); Mean Corpuscular Volume 89.5 fL (80-100); Platelet Count 205 X10^3/uL (150-400)
[2025-10-21 15:56] LABS: HEMOLYSIS < 15 (0-50); Iron 99 ug/dL (37-170)
[2025-10-21 16:09] LABS: Percent Iron Saturation 45 % (15-50); Total Iron Binding Capacity 220 ug/dL (265-497); Transferrin 195 mg/dL (206-381)
[2025-10-21 16:36] LABS: Ferritin 92 ng/mL (11-264)
== END ==
PROVIDERS: PCP Physician Assistant; Referring Provider Physician Assistant
DX: D50.9 Iron deficiency anemia, unspecified (principal)
CPT/HCPCS: 36415; 82728; 83540; 83550; 85027